=== PATIENT | male | born 1955 | race Caucasian/White ===

== ENCOUNTER 2017-08-02 10:57 | Inpatient (IN) ==
[2017-08-02] MEDS ORDERED: IOPAMIDOL 100 ML BOTTLE IV ONE (10:58)
[2017-08-02] MEDS ORDERED: ASPIRIN 81 MG TAB.CHEW CHEWED ONE (11:06)
[2017-08-02] MEDS ORDERED: ASPIRIN 81 MG TAB.CHEW ONE (11:14)
--- NOTE | 2017-08-02 11:21 | Emergency Department Note ---
SOB HPI - General Chief Complaint: Shortness of Breath/Dyspnea Stated Complaint: Generalized pain, coughing up blood Time Seen by Provider: 08/02/17 11:18 Mode of arrival: ambulatory Limitations: physical limitation, other (chonically ill, recent PE, recently dc' d off coumadin and managed on ASA. Coughing up blood for weeks, resolving. Hx of liver failure) - History of Present Illness MD Complaint: shortness of breath, cough, pain with inspiration Context: recent illness, other (recent PE and anticoagulation, occurred during wound care) Severity: severe, similar to previous episodes Consistency/Duration: constant Improves with: oxygen, rest, upright position Worsens with: lying flat, exertion, movement, coughing Known history of: COPD, PE Associated symptoms: Reports: chest pain, pain with inspiration, wheezing, sputum production, lower extremity pain, hemoptysis. Denies: fever, cough Treatment prior to arrival: none, aspirin - Related Data Home Medications Medication Instructions Recorded Confirmed Lisinopril [Zestril] 10 mg PO HS 09/28/16 08/02/17 mirtazapine 15 mg tablet 15 mg PO QHS 09/28/16 08/02/17 omeprazole 40 mg capsule,delayed 40 mg PO QDAY 05/18/17 08/02/17 release Furosemide [Lasix] 40 mg PO DAILY 08/02/17 08/02/17 nebulizer + accessories unit 08/02/17 Previous Rx's Medication Instructions Recorded labetalol 100 mg tablet 100 mg PO QDAY 90 Days #90 tab 06/13/17 fluticasone 220 mcg/actuation HFA 2 puff INHALATION BID #12 g 06/20/17 aerosol inhaler ipratropium 20 mcg-albuterol 100 1 inh INHALATION BID PRN #4 g 06/22/17 mcg/actuation mist for inhalation ipratropium-albuterol 0.5 mg-3 3 ml INHALATION Q8H PRN #270 ml 06/22/17 mg(2.5 mg base)/3 mL nebulization soln potassium chloride ER 20 mEq 20 meq PO QDAY 30 Days #30 tab 07/04/17 tablet,extended release Oxygen #1 each 07/15/17 Portable Oxygen #1 each 07/18/17 Allergies Allergy/AdvReac Type Severity Reaction Status Date / Time Iodinated Contrast- Oral and Allergy Intermediate Hives Verified 08/02/17 15:54 IV Dye Amoxicillin [AMOXICILLIN] Allergy Mild Itching Verified 08/02/17 15:54 Review of Systems Review of Systems: Patient's CT did not show evidence of pulmonary embolus at last visit. An area in the left lower lobe that could be a source of some bleeding seen on previous CT. Patient has a hx of portal vein thrombus. He has been on baby aspirin since last visit with Dr Norberto islas in this ER. He has continued to cough up blood and struggles to breathe Hx of Hepatitis C and cirrhosis, esophageal varices, heart disease with 9 stents He has a history of pulmonary fibrosis and COPD Please see previous records Constitutional: Reports: chills, weakness, night sweats Eyes: Denies: vision change ENT ED: Reports: congestion. Denies: throat pain Cardiovascular: Reports: chest pain, dyspnea on exertion, edema Respiratory: Reports: cough, dyspnea, wheezes, hemoptysis Gastrointestinal: Reports: abdominal pain, diarrhea Genitourinary: Denies: urgency, dysuria Musculoskeletal: Reports: back pain, arthralgia Integumentary: Denies: lesions Neurological: Reports: confusion. Denies: headache Endocrine: Reports: fatigue, heat or cold intolerance Hematological/Lymphatic: Reports: easy bleeding, easy bruising Allergic/Immunologic: Denies: facial swelling, urticaria, itchy eyes Past Medical History - Past Medical History Attestation: Yes: The following information was validated with the patient. Medical history: Reports: CHF, COPD, GI bleed, liver disease, myocardial infarction (stents), pulmonary embolus, other (DVTs, cellulitis) Surgical history ED: Reports: angioplasty/stent Family history: Reports: non-contributory - Social History smoking status: Current every day smoker Exposure to secondhand smoke: Yes Alcohol use: Reports: Heavy Drug use: Reports: unknown Physical Exam - General Limitations: physical limitation General appearance: in distress - Head Head exam: atraumatic, normocephalic - Eye Eye exam: Present: normal appearance, other (conjunctival pallor). Absent: conjunctival injection, nystagmus, periorbital swelling, periorbital tenderness - ENT ENT exam: mucous membranes dry - Neck Neck exam: Present: normal inspection, trachea midline. Absent: lymphadenopathy - Chest Chest inspection: Present: other (stridorous, gaspin like breathing) - Respiratory Respiratory exam: Present: wheezes, stridor, prolonged expiratory phase - Cardiovascular Cardiovascular exam: Present: tachycardia, irregular rhythm - Abdominal Exam Abdominal exam: Present: distention, tenderness (midline tenderness, no ascites noted), diminished bowel sounds, ascites (perhaps mild ascites, he says he has gained significant weight) Abdominal tenderness: Present: epigastrium - Rectal Exam Rectal exam: Present: deferred - Extremities Exam Extremities exam: Present: pedal edema (leg wounds bilaterally) - Back Exam Back exam: Absent: CVA tenderness (R), CVA tenderness (L) - Neurological Exam Neurological exam: Present: alert, oriented X3 - Psychiatric Psychiatric exam: Present: anxious - Skin Skin exam: Present: warm, dry Course Course Narrative: Patient continued to worsen throughout his stay, with increased shortness of breath and desaturations. Still awaiting new CTA results. Maintaining sats on bi -pap currently. Decision to admit made related to ABG and failure to maintain sats Vital Signs Temperature 98.0 F 08/02/17 11:04 Pulse Rate 108 H 08/02/17 11:04 Respiratory Rate 24 H 08/02/17 11:04 Blood Pressure 153/83 08/02/17 11:04 Pulse Oximetry (%) 95 08/02/17 11:04 Temperature 98.4 F 08/02/17 15:56 Pulse Rate 99 H 08/02/17 20:00 Respiratory Rate 19 08/02/17 20:00 Blood Pressure 139/82 08/02/17 20:00 Pulse Oximetry (%) 91 08/02/17 20:00 Shortness of Breath/Dyspnea - Lab Data Result diagrams: 08/02/17 11:48 08/02/17 11:48 Lab Results 08/02/17 08/02/17 08/02/17 Range/Units 11:46 11:47 11:48 WBC (4.5-11.0) K/mcL RBC (4.50-5.90) M/mcL Hgb (13.5-16.5) g/dL Hct (41.0-55.0) % MCV (80.0-100.0) fL MCH (26.0-34.0) pg MCHC (31.0-36.0) g/dL RDW (11.5-14.5) % Plt Count (140-440) K/mcL MPV (7.4-10.4) fL Gran % (38.0-78.0) % Lymph % (Auto) (15.5-49.0) % [place] % (Auto) (1.0-12.0) % Eos % (Auto) (0.0-7.0) % Baso % (Auto) (0.0-2.0) % Gran # (1.8-8.0) K/mcL Lymph # (Auto) (1.5-4.8) K/mcL [place] # (Auto) (0.1-0.9) K/mcL Eos # (Auto) (0.0-0.7) K/mcL Baso # (Auto) (0.0-0.3) K/mcL D-Dimer 1.26 H (0.00-0.40) ug/ml VBG Lactic Acid 1.6 (0.5-2.2) mmol/L Sodium 139 (133-145) mmol/L Potassium 3.5 (3.3-5.1) mmol/L Chloride 102 (96-108) mmol/L Carbon Dioxide 21 L (22-30) mmol/L Anion Gap 16.0 (8-16) BUN 18 (6-20) mg/dl Creatinine 1.2 (0.7-1.2) mg/dl GFR Calculation 66 Glucose 129 H (70-105) mg/dL Calcium 8.9 (8.6-10.4) mg/dl Magnesium (1.6-2.5) mg/dL Total Bilirubin 2.3 H (0.0-1.0) mg/dL AST 18 (0-37) U/l ALT 11 (0-40) U/l Alkaline Phosphatase 95 (39-117) U/L Ammonia (16-60) umol/L Total Creatine Kinase 47 (24-195) IU/L CK-MB (CK-2) 3.0 (0-4.9) ng/ml Myoglobin 45 (28-72) ng/ml Troponin T (0-0.03) ng/ml NT-Pro-B Natriuret Pep (0-125) pg/ml Total Protein 7.2 (5.9-8.4) gm/dL Albumin 4.2 (3.2-5.2) gm/dL Globulin 3.0 (2.2-3.7) gm/dL Albumin/Globulin Ratio 1.4 (1.0-2.3) 08/02/17 08/02/17 08/02/17 Range/Units 11:48 11:48 11:48 WBC 5.6 (4.5-11.0) K/mcL RBC 3.96 L (4.50-5.90) M/mcL Hgb 12.0 L (13.5-16.5) g/dL Hct 36.8 L (41.0-55.0) % MCV 92.8 (80.0-100.0) fL MCH 30.3 (26.0-34.0) pg MCHC 32.7 (31.0-36.0) g/dL RDW 17.7 H (11.5-14.5) % Plt Count 69 L (140-440) K/mcL MPV 9.3 (7.4-10.4) fL Gran % 77.6 (38.0-78.0) % Lymph % (Auto) 12.5 L (15.5-49.0) % [place] % (Auto) 7.2 (1.0-12.0) % Eos % (Auto) 2.4 (0.0-7.0) % Baso % (Auto) 0.3 (0.0-2.0) % Gran # 4.3 (1.8-8.0) K/mcL Lymph # (Auto) 0.7 L (1.5-4.8) K/mcL [place] # (Auto) 0.4 (0.1-0.9) K/mcL Eos # (Auto) 0.1 (0.0-0.7) K/mcL Baso # (Auto) 0 (0.0-0.3) K/mcL D-Dimer (0.00-0.40) ug/ml VBG Lactic Acid (0.5-2.2) mmol/L Sodium (133-145) mmol/L Potassium (3.3-5.1) mmol/L Chloride (96-108) mmol/L Carbon Dioxide (22-30) mmol/L Anion Gap (8-16) BUN (6-20) mg/dl Creatinine (0.7-1.2) mg/dl GFR Calculation Glucose (70-105) mg/dL Calcium (8.6-10.4) mg/dl Magnesium (1.6-2.5) mg/dL Total Bilirubin (0.0-1.0) mg/dL AST (0-37) U/l ALT (0-40) U/l Alkaline Phosphatase (39-117) U/L Ammonia (16-60) umol/L Total Creatine Kinase 46 (24-195) IU/L CK-MB (CK-2) (0-4.9) ng/ml Myoglobin (28-72) ng/ml Troponin T 0.03 (0-0.03) ng/ml NT-Pro-B Natriuret Pep 3840.0 H (0-125) pg/ml Total Protein (5.9-8.4) gm/dL Albumin (3.2-5.2) gm/dL Globulin (2.2-3.7) gm/dL Albumin/Globulin Ratio (1.0-2.3) 08/02/17 08/02/17 Range/Units 11:48 11:54 WBC (4.5-11.0) K/mcL RBC (4.50-5.90) M/mcL Hgb (13.5-16.5) g/dL Hct (41.0-55.0) % MCV (80.0-100.0) fL MCH (26.0-34.0) pg MCHC (31.0-36.0) g/dL RDW (11.5-14.5) % Plt Count (140-440) K/mcL MPV (7.4-10.4) fL Gran % (38.0-78.0) % Lymph % (Auto) (15.5-49.0) % [place] % (Auto) (1.0-12.0) % Eos % (Auto) (0.0-7.0) % Baso % (Auto) (0.0-2.0) % Gran # (1.8-8.0) K/mcL Lymph # (Auto) (1.5-4.8) K/mcL [place] # (Auto) (0.1-0.9) K/mcL Eos # (Auto) (0.0-0.7) K/mcL Baso # (Auto) (0.0-0.3) K/mcL D-Dimer (0.00-0.40) ug/ml VBG Lactic Acid (0.5-2.2) mmol/L Sodium (133-145) mmol/L Potassium (3.3-5.1) mmol/L Chloride (96-108) mmol/L Carbon Dioxide (22-30) mmol/L Anion Gap (8-16) BUN (6-20) mg/dl Creatinine (0.7-1.2) mg/dl GFR Calculation Glucose (70-105) mg/dL Calcium (8.6-10.4) mg/dl Magnesium 1.6 (1.6-2.5) mg/dL Total Bilirubin (0.0-1.0) mg/dL AST (0-37) U/l ALT (0-40) U/l Alkaline Phosphatase (39-117) U/L Ammonia 18 (16-60) umol/L Total Creatine Kinase (24-195) IU/L CK-MB (CK-2) (0-4.9) ng/ml Myoglobin (28-72) ng/ml Troponin T (0-0.03) ng/ml NT-Pro-B Natriuret Pep (0-125) pg/ml Total Protein (5.9-8.4) gm/dL Albumin (3.2-5.2) gm/dL Globulin (2.2-3.7) gm/dL Albumin/Globulin Ratio (1.0-2.3) - Radiology Data Radiology results reviewed: Yes I reviewed the patient's radiology results. Plain film without change, no evidence for pneumonia, cardiomegaly stable. Known pulmonary hypertension. Known pulmonary fibrosis. Would benefit from pulmonology consult. No evidence for acute cardiac event, no evidence for infectious event to this hour. Admit to ICU for stabilization and further evaluation. New ground glass infiltrates in seen in CT, as well as significant calcifications. patient is transferred to ICU with BIPAP to maintain oxygenation Disposition Pt seen by VOLUNTEER ASSISTANT/PA only: No (Dr Henry) Clinical Impression: Acute exacerbation of chronic obstructive airways disease, Hypoxia Disposition: Xfer As Inpt ([facility]) Condition: Undetermined
[2017-08-02 12:15] LABS: Basophils # (Auto) 0 K/mcL (0.0-0.3); Basophils % (Auto) 0.3 % (0.0-2.0); Eosinophils # (Auto) 0.1 K/mcL (0.0-0.7); Eosinophils % (Auto) 2.4 % (0.0-7.0); Granulocytes % (Auto) 77.6 % (38.0-78.0); Lymphocytes # (Auto) 0.7 K/mcL (1.5-4.8); Lymphocytes % (Auto) 12.5 % (15.5-49.0); Mean Cell Volume 92.8 fL (80.0-100.0); Mean Corpuscular HGB Conc 32.7 g/dL (31.0-36.0); Mean Corpuscular Hemoglobin 30.3 pg (26.0-34.0); Monocytes # (Auto) 0.4 K/mcL (0.1-0.9); Monocytes % (Auto) 7.2 % (1.0-12.0); Platelet Count 69 K/mcL (140-440); RBC 3.96 M/mcL (4.50-5.90); Red Cell Distribution Width 17.7 % (11.5-14.5)
--- NOTE | 2017-08-02 12:23 | XRay Report ---
CLINICAL INFORMATION: Chest pain COMPARISON: 07/28/2017 FINDINGS: The heart is moderately enlarged - slightly increased previous study. Mediastinum and pulmonary vessels are normal. There is minor scattered scarring or atelectasis in both lung bases. No focal infiltrates. Minor scarring blunts the right costophrenic angle IMPRESSION: Moderate cardiomegaly but no evidence CHF or other acute process Interpreted and Authenticated by: Gunnar Sethi 08/02/17
[2017-08-02 12:27] LABS: Myoglobin 45 ng/ml (28-72)
[2017-08-02 12:31] LABS: ALT/SGPT 11 U/l (0-40); Albumin 4.2 gm/dL (3.2-5.2); Albumin/Globulin Ratio 1.4 (1.0-2.3); Alkaline Phosphatase 95 U/L (39-117); Blood Urea Nitrogen 18 mg/dl (6-20); Creatine Kinase 47 IU/L (24-195)
[2017-08-02 12:33] LABS: Creatine Kinase 46 IU/L (24-195)
[2017-08-02] MEDS ORDERED: diphenhydrAMINE 50 MG/ML VIAL IV ONE (12:57)
[2017-08-02] MEDS ORDERED: FUROSEMIDE 40 MG/4 ML VIAL IV ONE (12:58)
[2017-08-02] MEDS ORDERED: DEXAMETHASONE 10 MG/ML VIAL IV ONE (13:06)
[2017-08-02] MEDS: POTASSIUM CHLORIDE 20 MEQ TABLET PO ONE ×2 (13:57)
[2017-08-02] MEDS ORDERED: POTASSIUM CHLORIDE 10 MEQ TABLET PO ONE (14:00)
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
[2017-08-02] MEDS ORDERED: NALOXONE HCL 0.4 MG/ML VIAL IV PRN (15:52)
[2017-08-02] MEDS ORDERED: DEXTROSE 50% 50 ML VIAL IV PRN (15:52)
[2017-08-02] MEDS ORDERED: ALBUTEROL SULFATE 2.5 MG/3 ML NEBULIZER NEB PRN (15:52)
[2017-08-02] MEDS ORDERED: LORazepam 2 MG/ML VIAL IV PRN (15:52)
[2017-08-02] MEDS ORDERED: DOCUSATE SODIUM 100 MG CAPSULE PO PRN (15:52)
[2017-08-02] MEDS ORDERED: MAGNESIUM HYDROXIDE 30 ML ORAL.SUSP PO PRN (15:52)
[2017-08-02] MEDS ORDERED: DEXTROSE 31 GM ORAL.SUSP PO PRN (15:52)
[2017-08-02] MEDS ORDERED: ONDANSETRON 4 MG/2 ML VIAL IV PRN (15:52)
[2017-08-02] MEDS ORDERED: ACETAMINOPHEN 325 MG TABLET PO PRN (15:52)
--- NOTE | 2017-08-02 16:07 | Cat Scan Report ---
CLINICAL INFORMATION: Shortness of breath. History of pulmonary embolus COMPARISON: Prior chest CT from 02/12/2008, 07/15/2017 and 07/28/2017 TECHNIQUE: Axial images obtained through the chest. 80 cc of Isovue 360 contrast administration was administered cutaneously, and scanning was performed during pulmonary arterial phase. Axial, sagittal coronal reformatted images were obtained. Unfortunately, the pulmonary arteries were not opacified on the for exam. The patient is turned and 80 cc of Isovue 360 was reinjected and, using bolus timing, 2.5 mm helical slices were obtained from lung apices through the bases. Sagittal, coronal axial reformatted images were processed and reviewed at multiple windows and levels. 8 mm MIP images also obtained FINDINGS: The pulmonary arteries are well opacified - no evidence of recurrent embolus. The central pulmonary arteries are enlarged: The main pulmonary diameter of 4 cm. This is however unchanged from the [address] It is suggestive of chronic pulmonary hypertension. The thoracic aorta is normal in contour and caliber. There is no adenopathy in the mediastinal, hilar or axillary region. The heart is mildly enlarged, and there is heavy fibrofatty and calcific atherosclerotic plaque throughout the coronary arteries. Esophagus is grossly normal. Pulmonary parenchymal windows show elevated lung volumes and slight dilatation/wall thickening the bronchi suggesting chronic bronchitis. A moderate sized patchy alveolar infiltrate has developed in the superior segment of the left lower lobe . There are pleural parenchymal fibrotic changes in the peripheral right lower lobe which were also seen on the remote study. Smaller bandlike regions of interstitial disease in the extreme anterior upper lobes and also the perimediastinal left upper lobe are present. These are unchanged from the most recent chest CT dating back to three weeks ago; however , they were not seen on the 2008 CT. Are likely regions of interstitial fibrosis. Bones and soft tissues the chest wall are unremarkable. Images through the abdomen again show cirrhotic changes with varices in the perigastric perisplenic and peripancreatic region. No ascites. IMPRESSION: 1. No evidence of pulmonary embolus 2. New small patchy groundglass infiltrate in the superior segment of the left lower lobe 3. Pleural parenchymal fibrotic changes in the peripheral right lower lobe. Small regions of interstitial disease in the anterior segments of both upper lobes and the perimediastinal left upper lobe are unchanged from the most recent chest CTs dating back to three weeks. While it may represent interstitial fibrosis; it was not seen on the remote 2007 CT, therefore it could still represent active inflammation or edema. 4. Heavy fibrofatty calcific plaque in the coronary arteries. Suspect either occlusion and/or hemodynamically significant stenosis in the coronary arteries. Consider cardiology referral for stress testing 5. Cirrhotic changes with evidence for portal hypertension including varices and small amount of ascites in the perihepatic space Interpreted and Authenticated by: Gunnar Sethi 08/02/17
[2017-08-02] MEDS: INSULIN LISPRO 1 UNIT/0.01 ML UNIT SQ SCH ×2 (17:45→20:28)
[2017-08-02] MEDS: IPRATROPIUM/ALBUTEROL 3 ML AMPUL.NEB NEB SCH (19:19)
[2017-08-02] MEDS: BUDESONIDE 0.5 MG/2 ML AMPUL.NEB NEB SCH (19:19)
[2017-08-02] MEDS: FUROSEMIDE 40 MG/4 ML VIAL IV SCH (20:28)
[2017-08-02] MEDS ORDERED: LISINOPRIL 10 MG TABLET PO SCH (21:00)
[2017-08-02] MEDS ORDERED: MIRTAZAPINE 15 MG TABLET PO SCH (21:00)
[2017-08-02] MEDS ORDERED: 0.9 % SODIUM CHLORIDE 10 ML SYRINGE IV SCH (22:00)
[2017-08-02] MEDS: 0.9 % SODIUM CHLORIDE 10 ML SYRINGE IV SCH (22:06)
--- NOTE | 2017-08-03 | Emergency Department Note ---
ED Note Addendum Note Addendum: I have examined the patient and agree with admision for respiratory failure. We eventually put him on c-pap with improvement.. ct shows infiltrate
[2017-08-03] MEDS: IPRATROPIUM/ALBUTEROL 3 ML AMPUL.NEB NEB SCH ×3 (01:32→13:25)
[2017-08-03] MEDS: 0.9 % SODIUM CHLORIDE 10 ML SYRINGE IV SCH ×5 (05:32→15:48)
[2017-08-03 06:34] LABS: Basophils # (Auto) 0 K/mcL (0.0-0.3); Basophils % (Auto) 0.2 % (0.0-2.0); Eosinophils # (Auto) 0 K/mcL (0.0-0.7); Eosinophils % (Auto) 0.2 % (0.0-7.0); Granulocytes % (Auto) 86.2 % (38.0-78.0); Lymphocytes # (Auto) 0.4 K/mcL (1.5-4.8); Lymphocytes % (Auto) 8.9 % (15.5-49.0); Mean Cell Volume 93.7 fL (80.0-100.0); Monocytes # (Auto) 0.2 K/mcL (0.1-0.9); Monocytes % (Auto) 4.5 % (1.0-12.0); Platelet Count 69 K/mcL (140-440); RBC 3.94 M/mcL (4.50-5.90); Red Cell Distribution Width 17.3 % (11.5-14.5)
[2017-08-03 06:53] LABS: ALT/SGPT 11 U/l (0-40); Albumin 3.8 gm/dL (3.2-5.2); Albumin/Globulin Ratio 1.4 (1.0-2.3); Alkaline Phosphatase 88 U/L (39-117); Bilirubin,Direct 0.4 mg/dL (0.0-0.3); Blood Urea Nitrogen 24 mg/dl (6-20); Gamma Glutamyl Transpeptidase 24 U/L (8-61); Magnesium 1.8 mg/dL (1.6-2.5); Uric Acid 10.3 mg/dL (2.5-8.0)
[2017-08-03] MEDS: BUDESONIDE 0.5 MG/2 ML AMPUL.NEB NEB SCH (06:59)
[2017-08-03] MEDS: INSULIN LISPRO 1 UNIT/0.01 ML UNIT SQ SCH ×2 (07:29→13:20)
[2017-08-03] MEDS ORDERED: OMEPRAZOLE 20 MG CAPSULE PO SCH (07:30)
[2017-08-03] MEDS ORDERED: POTASSIUM CHLORIDE 20 MEQ TABLET PO SCH (08:00)
[2017-08-03] MEDS: FUROSEMIDE 40 MG/4 ML VIAL IV SCH (08:18)
[2017-08-03] MEDS ORDERED: LABETALOL 100 MG TABLET PO SCH (09:00)
--- NOTE | 2017-08-03 11:00 | Internal Med Progress Note ---
Medical - PN: Subj Patient information: Note initiated : 08/03/17 at 11:00 am Service Date, if different from initiated Date: [] Patient: Shane Marroquin 61 y/o M admitted on 08/02/17 for Generalized pain, coughing up blood. Chief Complaint: [] - Constitutional Vitals: Vital Signs Temp Pulse Resp BP Pulse Ox 97 F 96 H 15 133/93 91 08/03/17 07:29 08/03/17 07:33 08/03/17 10:00 08/03/17 10:00 08/03/17 10:00 Period Temp Pulse Resp BP Sys/Carlson Pulse Ox Last 24 Hr 97 F-98.4 F 93-113 13-32 91-162/64-112 83-98 Intake and Output 08/02/17 08/03/17 08/03/17 21:59 05:59 13:59 Intake Total 240 / 240 540 / 540 Output Total 800 / 800 300 / 300 400 / 400 Balance -560 / -560 -300 / -300 140 / 140 Weight 189 lb 4.8 oz Intake & Output: Intake & Output 08/02/17 08/03/17 08/03/17 21:59 05:59 13:59 Intake Total 240 / 240 540 / 540 Output Total 800 / 800 300 / 300 400 / 400 Balance -560 / -560 -300 / -300 140 / 140 Weight 189 lb 4.8 oz Intake: Oral 240 / 240 240 / 240 GI Tube Flush 300 / 300 Output: Urine Catheter Amount 600 / 600 Void Amount 200 / 200 300 / 300 400 / 400 Other: Meal Dinner Breakfast Percent of Meal Consumed 100% 100% Feeding Ability Assist with Tray Set Up # Voids 1 Medical - PN: Obj Da - Labs CBC & Chem 7: 08/03/17 03:58 08/03/17 03:58 Labs: Abnormal Lab Results 08/03/17 08/03/17 08/02/17 03:58 03:58 11:48 WBC 4.4 L RBC 3.94 L Hgb 11.8 L Hct 36.9 L RDW 17.3 H Plt Count 69 L Gran % 86.2 H Lymph % (Auto) 8.9 L Lymph # (Auto) 0.4 L D-Dimer Carbon Dioxide BUN 24 H Creatinine 1.6 H Glucose 197 H Uric Acid 10.3 H Phosphorus 2.6 L Total Bilirubin 1.2 H Direct Bilirubin 0.4 H NT-Pro-B Natriuret Pep 3840.0 H 08/02/17 08/02/17 08/02/17 11:48 11:48 11:47 WBC RBC 3.96 L Hgb 12.0 L Hct 36.8 L RDW 17.7 H Plt Count 69 L Gran % Lymph % (Auto) 12.5 L Lymph # (Auto) 0.7 L D-Dimer 1.26 H Carbon Dioxide 21 L BUN Creatinine Glucose 129 H Uric Acid Phosphorus Total Bilirubin 2.3 H Direct Bilirubin NT-Pro-B Natriuret Pep Meds: Medications Acetaminophen (Tylenol) 650 mg PO Q4-6HP PRN PRN Reason: PAIN/FEVER > 101 Last Admin: 08/02/17 17:47 Dose: 650 mg Albuterol Sulfate (Ventolin) 2.5 mg NEB Q4HRT PRN PRN Reason: Shortness Of Breath Or Wheezing Albuterol/Ipratropium (Duoneb) 3 ml NEB Q6HRT [facility] Last Admin: 08/03/17 06:58 Dose: 3 ml Budesonide (Pulmicort) 0.5 mg NEB Q12 [facility] Last Admin: 08/03/17 06:59 Dose: 0.5 mg Dextrose (Dextrose 50%) 0 ml IV UD PRN PRN Reason: Hypoglycemia Diagnostic Test (Pha) (Accu-Chek) 1 each FS [facility] Last Admin: 08/03/17 07:29 Dose: 1 each Docusate Sodium (Colace) 100 mg PO BID PRN PRN Reason: Constipation Furosemide (Lasix) 40 mg IV BID [facility] Last Admin: 08/03/17 08:18 Dose: 40 mg Glucose (Insta-Glucose) 15 gm PO PRN PRN PRN Reason: Hypoglycemia Insulin Human Lispro (Humalog) 0 unit SQ [facility] PRN Reason: Protocol Last Admin: 08/03/17 07:29 Dose: 1 unit Labetalol HCl (Trandate) 100 mg PO QDAY [facility] Last Admin: 08/03/17 08:19 Dose: 100 mg Lisinopril (Zestril) 10 mg PO HS [facility] Last Admin: 08/02/17 20:29 Dose: 10 mg Lorazepam (Ativan) 1 mg IV Q2HP PRN PRN Reason: ANXIETY/SEDATION Magnesium Hydroxide (Milk Of Magnesia) 30 ml PO DAILYP PRN PRN Reason: Constipation Mirtazapine (Remeron) 15 mg PO QHS [facility] Last Admin: 08/02/17 20:29 Dose: 15 mg Morphine Sulfate (Morphine) 4 mg IV Q2HP PRN PRN Reason: Pain Last Admin: 08/03/17 08:30 Dose: 4 mg Naloxone HCl (Narcan) 0.1 mg IV Q2MIN PRN PRN Reason: Opiate Reversal Omeprazole (Prilosec) 40 mg PO ACB [facility] Last Admin: 08/03/17 07:30 Dose: 40 mg Ondansetron HCl (Zofran) 4 mg IV Q4-6HP PRN PRN Reason: Nausea And Vomiting Potassium Chloride (Kdur) 20 meq PO QAMCC [facility] Last Admin: 08/03/17 08:18 Dose: 20 meq Sodium Chloride (Saline Flush) 10 ml IV Q8 [facility] Last Admin: 08/03/17 08:20 Dose: 10 ml Medical - PN: A/P - Time Spent With Patient Total time spent is greater than 50% in coordination of care (as documented) at patient's floor/unit and/or counseling patient: (1) Acute and chronic respiratory failure Status: Acute Current Visit: Yes (2) Congestive heart failure Status: Acute Current Visit: Yes (3) Pulmonary hypertension Status: Chronic Current Visit: No (4) Liver failure Status: Chronic Current Visit: No (5) Tobacco abuse Problem details: Smoking Status: Chronic Current Visit: No (6) Esophageal varices Status: Chronic Current Visit: No (7) Cirrhosis of liver Status: Chronic Current Visit: No (8) COPD (chronic obstructive pulmonary disease) Status: Chronic Current Visit: No (9) CAD (coronary artery disease) Problem details: Pt. denies a history of [place] Status: Chronic Current Visit: No Medical - PN: Qual - Stroke Symptom Onset Unknown: No - VTE Deep Vein Thrombosis/Pulmonary Embolism Present on Admission: No
[2017-08-03] MEDS ORDERED: NITROGLYCERIN 0.4 MG TAB.SUBL SL ONE (12:24)
[2017-08-03] MEDS ORDERED: NITROGLYCERIN 0.4 MG TAB.SUBL SL PRN (12:30)
[2017-08-03] MEDS ORDERED: NITROGLYCERIN 1 GM OINT.TOP TD ONE (12:47)
[2017-08-03] MEDS ORDERED: KETOROLAC 15 MG/ML VIAL IV ONE (12:47)
--- NOTE | 2017-08-03 13:11 | XRay Report ---
CLINICAL INFORMATION: Left-sided chest pain COMPARISON: 08/02/2017 FINDINGS: Moderate cardiomegaly is unchanged. Mediastinum and pulmonary vessels are normal. Minor bibasilar atelectasis is noted, but no definite infiltrates. Tiny right pleural effusion appreciated IMPRESSION: Moderate stable cardiomegaly - no evidence of acute CHF. Minor bibasilar atelectasis Interpreted and Authenticated by: Gunnar Sethi 08/03/17
--- NOTE | 2017-08-03 16:11 | Discharge Summary ---
Medical - DS: Prov Patient information: Note initiated : 08/03/17 at 4:09 pm Patient: Shane Marroquin 61 y/o M admitted on 08/02/17 for Generalized Pain, Coughing up Blood/Resp Failure. Date of admission: 08/02/17 15:19 Discharge date: 08/03/17 Primary care physician: MAMADOU Crow, phone number [phone] Admitting clinician: Gail Prince Attending physician on discharge: Gail Prince Medical - DS: Meds - Discharge Medications Active and Home Medications: Discharge medications: Tylenol 650 mg every 4 hours as needed Albuterol nebulizers every 4 hours as needed Budesonide nebulizers 0.5 mg every 12 hours Rocephin 1 g IV every 24 hours Clindamycin 600 mg IV every 8 hours Colace 100 mg p.o. twice daily as needed Lasix 40 mg IV twice daily Humalog sliding scale low-dose Duo nebs every 6 hours Labetalol 100 mg daily Lisinopril 10 mg nightly Ativan 1 mg IV every 2 hours as needed Magnesium hydroxide 30 mL daily as needed Mirtazapine 15 mg nightly next line morphine 4 mg IV every 2 hours as needed Narcan 0.1 mg IV every 2 minutes as needed Sublingual nitroglycerin 0.4 mg every 5 minutes as needed Omeprazole 40 mg p.o. daily next line Zofran 4 mg IV every 4-6 hours as needed Potassium chloride 20 mEq p.o. daily Oxygen, 65% FiO2, on BiPAP Previous home Medications: (Patient was on Coumadin until 1 week ago. This was discontinued after he presented to the emergency room with gross hemoptysis. Lisinopril [Zestril] 10 mg PO HS 09/28/16 [History Confirmed 08/02/17 Last Taken 09/30/16 08:00] mirtazapine 15 mg tablet 15 mg PO QHS 09/28/16 [History Confirmed 08/02/17 Last Taken Unknown] omeprazole 40 mg capsule,delayed release 40 mg PO QDAY 05/18/17 [History Confirmed 08/02/17 Last Taken Unknown] labetalol 100 mg tablet 100 mg PO QDAY 90 Days #90 tab 06/13/17 [Rx Confirmed Last Taken Unknown] fluticasone 220 mcg/actuation HFA aerosol inhaler 2 puff INHALATION BID #12 g [Rx Confirmed 08/02/17 Last Taken Unknown] ipratropium 20 mcg-albuterol 100 mcg/actuation mist for inhalation 1 inh INHALATION BID PRN #4 g 06/22/17 [Rx Confirmed 08/02/17 Last Taken Unknown] ipratropium-albuterol 0.5 mg-3 mg(2.5 mg base)/3 mL nebulization soln 3 ml INHALATION Q8H PRN #270 ml 06/22/17 [Rx Confirmed 08/02/17 Last Taken Unknown] potassium chloride ER 20 mEq tablet,extended release 20 meq PO QDAY 30 Days #30 tab 07/04/17 [Rx Confirmed 08/02/17 Last Taken Unknown] Oxygen #1 each 07/15/17 [Rx Confirmed 07/22/17 Last Taken Unknown] Portable Oxygen #1 each 07/18/17 [Rx Confirmed 07/22/17 Last Taken Unknown] Furosemide [Lasix] 40 mg PO DAILY 08/02/17 [History Confirmed 08/02/17 Last Taken Unknown] nebulizer + accessories unit 08/02/17 [History Last Taken Unknown] Medical - DS: Hosp Hospital course: Mr. Marroquin is a 61 year old M August 02, 2017: History of present illness: Mr. Marroquin is a 61 year old man with many chronic illnesses, including liver cirrhosis, coronary disease, COPD, diabetes, who was diagnosed with a pulmonary embolism about 1 month ago. This was apparently diagnosed in our emergency room , and patient was started on Coumadin. About 1 week ago he presented with hemoptysis. He was told to stop his Coumadin, and he was placed on aspirin. The patient notes that over the last 4 or 5 days he has noted increasing edema and shortness of breath, orthopnea, as well as chills. He has had some headaches and dizziness as well. He thinks he may have had some sinus symptoms. He has also been having some tightness of his mid and left-sided chest that he thinks is been going on for the last 4 or 5 days. The shortness of breath may have started getting worse over the more than a week ago possibly 2 weeks. He has had increasing edema over the last week, but says he recently moved and did not have his scale, so he has not been weighing himself. He is also been having some mild abdominal discomfort and nausea. He says he was having loose stools for the last 4 or 5 days, but that seemed to stop a day or so ago. He presented to the wound care clinic today to check on some lower extremity sores, but they sent him over to the emergency room for his dyspnea. In the emergency room workup showed a BNP of 38,000. He was noted to have periods of apnea on the monitor while in the ER, and would drop his O2 saturations down into the 70s. He is now admitted for workup and treatment of his intermittent hypoxia. He is on home oxygen, 3 L at night, in addition to duo nebs 3-5 times a day, and Flovent. His last left ventricular ejection fraction read at 40%. On arrival to the ICU, he is still rather dyspneic. We tried to leave his BiPAP off so that we could talk with him, but his sats quickly dropped into the 70s even with a high flow mask. Once the BiPAP is back on, with FiO2 40%, his sats jumped back up to the mid 90s almost immediately. He otherwise denies fever, new eye or ear symptoms. He has had a little bit of a sore throat and a slight cough. He denies palpitations. He has had some nausea, but no vomiting. He has had some diarrhea. He denies dysuria. Respiratory therapy notes that his breathing pattern is suggestive of Koby- Roper. She thinks perhaps this has something to do with Benadryl and other medications received in the emergency room. August 03: Hospital course: The patient was admitted to ICU last night. Because of his edema and elevated BNP, he was treated with IV Lasix. He did diurese about 850 mL overnight, and breathing seemed to improve this morning. He was weaned off the BiPAP and placed on oxygen by nasal cannula, and seemed to be tolerating that well as of this morning. He was complaining of some mild abdominal discomfort today, and there is some concern for spontaneous bacterial peritonitis, given his chronic liver disease. The patient also noted some discomfort in the left lower quadrant/left groin area today. He is worried that he might have a recurrent clot there, as he believes he had a blood clot there before. Around noon today, he began to complain of left-sided chest discomfort. He describes this as sharp but constant, worse with deep breathing and cough. His O2 saturations declined around the same time, and he was placed back on BiPAP to keep his O2 saturations above 90%, with 65% FiO2. EKG was done, and showed inverted T waves in leads V2 through V6, which was new compared to his admission EKG. Patient was given sublingual nitroglycerin, and then topical Nitropaste. These only gave him moderate relief. He was then given 1 dose of IV Toradol for the pleuritic component of pain, but that did not seem very helpful either. Recall that the patient was diagnosed with small pulmonary emboli in the right lateral basilar segmental lower lobe pulmonary artery, as well as medial and posterior basilar segmental arteries of both lower lobes, on July 15, 2017 , in our emergency room. He was started on Lovenox and Coumadin at that time. On July 28, he presented to our emergency room complaining of gross hemoptysis. Because of his known liver disease and increased risk for bleeding , repeat CT angiogram was done to assess the status of his PE. CT scan did not show evidence of PE. It did show subtle groundglass opacity in the superior segment of the left lower lobe thought to be consistent with either inflammation or alveolar hemorrhage, versus pneumonia. Also mild idiopathic pulmonary fibrosis. Dr. Medina, of interventional radiology, was contacted, as he had previously treated the patient for a portal vein thrombosis. He reviewed the CT scan, and did not see a PE. He suggested changing the patient from Coumadin to baby aspirin for 10-14 days. The patient was advised to return to the ER if he had further signs of hemorrhage. At this time, the patient is requiring BiPAP to keep his O2 saturations above 90 %. He still appears uncomfortable. He says the chest pain is never completely resolved. He had a follow-up EKG at 2:30 PM, which shows normal sinus rhythm at a rate of 83. T-wave inversions anterolaterally persist, and may even be slightly worse than at noon. Dr. Herrmann at [facility] in [place] was contacted. Reviewed the case with him. He has agreed to accept the patient in transfer, to help further diagnose and treat the cause of the patient's hypoxic respiratory failure, as well as to have access to cardiology for his ongoing chest pain and EKG changes. Patient does have known history of coronary disease, and is also at increased risk of bleeding due to his liver failure and varices. On exam, patient has remained afebrile since admission. Current heart rate is 84, respiratory rate 20, blood pressure 111/75. He is on BiPAP at 55% FiO2, with O2 saturations of 93%. Neck is supple without obvious JVD. Cardiac exam shows regular rate and rhythm with normal S1 and S2. Lungs have generally decreased breath sounds, without definite crackles or wheezes. There is mild accessory muscle use. Abdomen: Is soft, without guarding or rebound. He does have some tenderness in the left lower quadrant and suprapubic areas. I cannot appreciate a hernia in this area. He has a good left inguinal pulse. Extremities: Continue to show 2+ pitting edema of the feet and lower legs. Neurologic: The patient is awake and alert, but seems a bit forgetful at times. Motor exam is grossly nonfocal. Assessment and plan: #1. Cardiopulmonary. Patient resents with apparent acute respiratory failure superimposed on chronic respiratory failure. He has long-standing COPD, recent diagnosis of pulmonary embolism, reports of pulmonary hypertension, and elevated BNP consistent with possible CHF. Yesterday he also had an abnormal respiratory pattern, that seemed consistent with Koby-Roper breathing. He did diurese a fair amount overnight, and seemed to improve this morning, but this afternoon is having chest pain associated with declining respiratory status. I did review his case with Dr. Coleman from interventional radiology. He reviewed the CT scan from yesterday for me, and confirms there is no sign of recurrent PE. At this point, the patient has been having chest discomfort, and is having dynamic EKG changes, so I am more concerned about a cardiac etiology of his chest pain, and perhaps for his respiratory decline as well. I did review his CT findings also with Dr. Herrmann, of internal medicine at [facility], today. That does show an infiltrate that could be consistent with pneumonia as well. -Patient is currently being supported with BiPAP to maintain O2 saturations. -He has received sublingual nitroglycerin as well as topical Nitropaste and morphine, in addition to Toradol, for his pain. -At this time, the patient would be better served at a larger institution, where he could have access to both cardiology and pulmonology specialties. Dr. Lofton has graciously agreed to accept him in transfer at this time. -Patient previously signed a limited code order, but now says he would accept ventilation if necessary. -Echocardiogram was done, with results pending. We were verbally told that his ejection fraction is 25%. -Recheck EKG and troponins in 6 hours. COPD. -Duo nebs plus as needed albuterol, budesonide nebs, oxygen as needed. Pulmonary embolism, diagnosed about 1 month ago. Patient was taken off of Coumadin after 1 month, for gross hemoptysis. He does have a fairly high risk of bleeding, given his underlying liver disease. 2. CODE STATUS: Previously requested limited code, but now states he would accept full code. 3. DVT prophylaxis: SCDs. Patient is high risk for anticoagulation, given recent bleeding, esophageal varices, thrombocytopenia. 4. GI. History of liver cirrhosis, alcohol abuse, chronic hepatitis C, esophageal varices.. Patient is at high risk for GI bleed. 5. Endocrine History of type 2 diabetes. Accu-Cheks and sliding scale insulin. Next 6. Tobacco abuse. Ongoing, just 1-2 cigarettes per day. Really the patient should not be smoking at all. NicoDerm patch as needed. 7. History of alcohol abuse. It is still drinking an occasional beer, and should be abstaining from all alcohol. 8. Infectious disease. -CT scan suggests possible infiltrate. Patient does not really give much history consistent with pneumonia, but will be started on empiric Rocephin plus clindamycin at this time. -I had started him on oral ciprofloxacin earlier today, over concerns of possible SBP, but that will be discontinued at this time as well. -Urine and blood cultures are pending. I do not believe we were able to get a sputum sample from him. Discharge diagnosis: Acute respiratory failure. Chest pain with EKG changes. Secondary discharge diagnosis: Chronic liver failure. CHF. Possible pneumonia Recent pulmonary embolism - Time Spent with Patient Total time spent providing and/or coordinating discharge services: Greater than 30 minutes Medical - DS: Exam - Constitutional Vitals: Vital Signs Temp Pulse Pulse Resp BP BP Pulse Ox 08/03/17 15:00 83 20 111/75 93 08/03/17 14:30 82 19 106/66 93 08/03/17 14:16 81 15 102/64 92 08/03/17 14:00 83 19 101/64 93 08/03/17 13:45 83 19 108/63 92 08/03/17 13:35 86 19 111/68 88 L 08/03/17 13:26 86 24 H 93 08/03/17 12:51 98 H 23 H 129/72 97 08/03/17 12:46 95 H 23 H 111/75 98 08/03/17 12:45 95 H 14 112/72 96 08/03/17 12:41 93 H 28 H 136/108 84 L 08/03/17 12:19 94 H 21 126/96 91 08/03/17 12:18 95 H 22 127/104 88 L 08/03/17 12:01 89 20 122/68 92 08/03/17 11:13 97.7 F 88 19 108/57 91 08/03/17 10:00 15 133/93 91 08/03/17 09:00 22 150/96 96 08/03/17 08:00 21 137/94 91 08/03/17 07:33 96 H 94 08/03/17 07:30 91 08/03/17 07:29 97 F 08/03/17 07:00 97.9 F 22 108/68 92 08/03/17 06:55 99 H 20 08/03/17 05:56 113 H 18 113/68 97 08/03/17 05:00 93 H 16 115/64 96 08/03/17 04:00 97 H 18 122/77 97 08/03/17 03:00 97 H 16 146/85 94 08/03/17 02:00 97 H 20 128/71 93 08/03/17 01:00 101 H 25 H 133/77 92 08/03/17 00:00 96 H 21 129/76 95 08/02/17 23:00 93 H 13 147/90 92 08/02/17 22:00 98 H 17 123/81 93 08/02/17 21:00 100 H 19 135/78 91 08/02/17 20:54 102 H 16 94 08/02/17 20:00 99 H 19 139/82 91 08/02/17 19:31 103 H 19 08/02/17 19:19 92 08/02/17 19:00 102 H 24 H 124/112 90 08/02/17 18:15 109 H 20 139/92 90 10/10/17 17:35 105 H 20 125/74 97 Intake and Output 08/03/17 08/03/17 08/03/17 05:59 13:59 21:59 Intake Total 900 / 900 Output Total 300 / 300 600 / 600 200 / 200 Balance -300 / -300 300 / 300 -200 / -200 Intake: Oral 240 / 240 GI Tube Flush 660 / 660 Output: Void Amount 300 / 300 600 / 600 200 / 200 Other: Meal Breakfast Percent of Meal Consumed 100% Feeding Ability Assist with Tray Set Up # Voids 1 Weight 189 lb 4.8 oz Patient Weight 08/04/17 05:59 Weight 189 lb 4.8 oz Medical - DS: Data Labs on day of discharge: Labs from last 24 hours 08/03/17 08/03/17 08/03/17 12:57 03:58 03:58 WBC 4.4 L RBC 3.94 L Hgb 11.8 L Hct 36.9 L MCV 93.7 MCH 30.0 MCHC 32.0 RDW 17.3 H Plt Count 69 L MPV 9.0 Gran % 86.2 H Lymph % (Auto) 8.[address] [place] % (Auto) 4.5 Eos % (Auto) 0.2 Baso % (Auto) 0.2 Gran # 3.8 Lymph # (Auto) 0.[address] [place] # (Auto) 0.2 Eos # (Auto) 0 Baso # (Auto) 0 Sodium 139 Potassium 3.7 Chloride 100 Carbon Dioxide 23 Anion Gap 16.0 BUN 24 H Creatinine 1.6 H GFR Calculation 46 Glucose 197 H Uric Acid 10.3 H Calcium 8.9 Phosphorus 2.6 L Magnesium 1.8 Total Bilirubin 1.2 H Direct Bilirubin 0.4 H GGT 24 AST 15 ALT 11 Alkaline Phosphatase 88 Lactate Dehydrogenase 248 Troponin T 0.02 Total Protein 6.6 Albumin 3.8 Globulin 2.8 Albumin/Globulin Ratio 1.4 Triglycerides 41 08/02/17 17:57 WBC RBC Hgb Hct MCV MCH MCHC RDW Plt Count MPV Gran % Lymph % (Auto) [place] % (Auto) Eos % (Auto) Baso % (Auto) Gran # Lymph # (Auto) [place] # (Auto) Eos # (Auto) Baso # (Auto) Sodium Potassium Chloride Carbon Dioxide Anion Gap BUN Creatinine GFR Calculation Glucose Uric Acid Calcium Phosphorus Magnesium Total Bilirubin Direct Bilirubin GGT AST ALT Alkaline Phosphatase Lactate Dehydrogenase Troponin T 0.02 Total Protein Albumin Globulin Albumin/Globulin Ratio Triglycerides Preliminary micro results at discharge 08/02/17 11:25 Blood Culture - Preliminary Blood 08/02/17 11:38 Blood Culture - Preliminary Blood August 03: Echocardiogram: Mild concentric LVH, LV systolic function severely reduced, ejection fraction 25%. Severe global hypokinesis. Grade 2 diastolic dysfunction. Biatrial enlargement. Doppler findings suggestive of severe pulmonary hypertension. Aortic valve is moderately to severely sclerotic. Moderate to severe aortic insufficiency. Mildly dilated a sending aorta. Sputum: Moderate to many polys. Moderate gram-positive cocci in pairs, rare gram-positive cocci in clusters. Few to moderate gram-negative bacilli . Troponin: 0.02 EKG at 2:31 PM: Shows sinus rhythm at a rate of 83, again with inverted T waves in V leads V2 through V6, new since admission, but similar to the EKG done at noon. Nonspecific intraventricular conduction delay. EKG at 12:09 PM: Shows sinus rhythm at a rate of 94, with inverted T waves noted in leads V2 through V6, new when compared to admission EKG. Nasal MRSA screen is negative. Blood cultures are negative so far. Chest x-ray: Shows moderate stable cardiomegaly without CHF. Minor bibasilar atelectasis. ABG: On BiPAP with settings 10/5, FiO2 65%: PH 7.49, PCO2 28, PO2 60, bicarb 21 , O2 saturation 93% August 02: CBC: White blood cell count 5.6, hemoglobin 12, hematocrit 36.8, RDW 17, platelet count 69,000 Chemistry panel: Sodium 139, potassium 3.5, chloride 102, CO2 21, anion gap 16, glucose 129, BUN 18, creatinine 1.2 Total bilirubin elevated at 2.3 D-dimer is elevated at 1.26 Troponin is normal at 0.03 ProBNP is elevated at 3840 July 22: Right leg wound culture is growing staph aureus, which is resistant to erythromycin, but otherwise pansensitive. EKG: Shows probable sinus tachycardia at a rate of 103 low voltage is noted. Nonspecific ST T changes are noted. Chest x-ray: Shows moderate cardiomegaly, but no obvious CHF. Minor scarring versus atelectasis in both bases. ABG: On 15 L nonrebreather mask: PH 7.49, CO2 29, PO2 82, bicarb 22, 97% saturated. Chest CT: No PE. New small groundglass infiltrate in the superior segment of the left lower lobe. Right lower lobe fibrotic changes. Some interstitial disease. Heavy plaque seen in coronary arteries. Liver cirrhosis with portal hypertension. Small amount of ascites in the perihepatic space. Enlarged central pulmonary arteries, suggestive of pulmonary hypertension. Medical - DS: A/P - Patient/Caregiver Discharge Instructions Activity: as instructed Diet: Low Sodium (2gm) - Problem Maintenance (1) Acute and chronic respiratory failure Status: Acute (2) Congestive heart failure Status: Acute Qualifiers: Congestive heart failure type: combined (3) Pulmonary hypertension Status: Chronic (4) Liver failure Status: Chronic Qualifiers: Liver failure chronicity: chronic Hepatic coma status: without hepatic coma Qualified Code(s): K72.10 - Chronic hepatic failure without coma (5) Tobacco abuse Status: Chronic Comment: Smoking (6) Esophageal varices Status: Chronic (7) Cirrhosis of liver Status: Chronic Qualifiers: Hepatic cirrhosis type: unspecified hepatic cirrhosis Ascites presence: without ascites Qualified Code(s): K74.60 - Unspecified cirrhosis of liver (8) COPD (chronic obstructive pulmonary disease) Status: Chronic Qualifiers: COPD type: unspecified COPD Qualified Code(s): J44.9 - Chronic obstructive pulmonary disease, unspecified (9) CAD (coronary artery disease) Status: Chronic Comment: Pt. denies a history of [place] Qualifiers: Coronary Disease-Associated Artery/Lesion type: unspecified vessel or lesion type [place] vs. transplanted heart: [place] heart Associated angina: angina presence unspecified Qualified Code(s): I25.10 - Atherosclerotic heart disease of [place] coronary artery without angina pectoris - Follow up Plan Follow up with: Luis Mtz PA-C [Primary Care Provider] - Disposition: [facility] Prognosis: Fair Rehab Potential: Fair Overall status at discharge: patient is not back to baseline Medical - DS: Qual - VTE Deep Vein Thrombosis/Pulmonary Embolism Present on Admission: No
[2017-08-03] MEDS ORDERED: cefTRIAXone 1 GM in DEXTROSE 5% IN WATER 50 ML IV SCH (17:00)
[2017-08-03] MEDS ORDERED: CLINDAMYCIN 600 MG in DEXTROSE 5% IN WATER 50 ML IV SCH (18:00)
[2017-08-03] MEDS ORDERED: CIPROFLOXACIN 500 MG TABLET PO SCH (21:00)
[2017-08-04] MEDS ORDERED: FLU VACC QS2017-18 36MOS UP/PF 60 MCG/0.5 ML SYRINGE IM ONE (10:00)
== END 2017-08-03 17:00 | disposition short-term general hospital (02) | DRG 189 ==
LOC: ED 10:57 → ICU 15:19
PROVIDERS: ADMIT Internal Medicine; ATTEND Internal Medicine

== ENCOUNTER 2017-12-08 13:23 | Inpatient (IN) ==
[2017-12-08] MEDS ORDERED: IOPAMIDOL 100 ML BOTTLE IV ONE (13:24)
[2017-12-08] MEDS ORDERED: PHENobarb/HYOSCY/ATROPINE/SCOP 1 DOSE BOTTLE PO ONE (14:05)
[2017-12-08] MEDS ORDERED: ONDANSETRON 4 MG/2 ML VIAL IV ONE (14:05)
[2017-12-08] MEDS ORDERED: fentaNYL 100 MCG/2 ML VIAL IV ONE ×2 (14:21→16:02)
[2017-12-08] MEDS ORDERED: POTASSIUM CHLORIDE 40 MEQ in DEXTROSE 5% IN WATER 500 ML IV ONE (14:39)
[2017-12-08] MEDS ORDERED: POTASSIUM CHLORIDE 20 MEQ TABLET PO ONE (14:39)
[2017-12-08] MEDS ORDERED: diphenhydrAMINE 50 MG/ML VIAL IV ONE (14:46)
[2017-12-08] MEDS ORDERED: DEXAMETHASONE 10 MG/ML VIAL IV ONE (14:46)
[2017-12-08 14:49] LABS: Basophils # (Auto) 0 K/mcL (0.0-0.3); Basophils % (Auto) 0.1 % (0.0-2.0); Eosinophils # (Auto) 0.1 K/mcL (0.0-0.7); Eosinophils % (Auto) 2.7 % (0.0-7.0); Granulocytes % (Auto) 75.1 % (38.0-78.0); Lymphocytes # (Auto) 0.7 K/mcL (1.5-4.8); Lymphocytes % (Auto) 12.7 % (15.5-49.0); Mean Cell Volume 80.1 fL (80.0-100.0); Mean Corpuscular HGB Conc 32.8 g/dL (31.0-36.0); Mean Corpuscular Hemoglobin 26.2 pg (26.0-34.0); Monocytes # (Auto) 0.5 K/mcL (0.1-0.9); Monocytes % (Auto) 9.4 % (1.0-12.0); Platelet Count 78 K/mcL (140-440); RBC 3.92 M/mcL (4.50-5.90); Red Cell Distribution Width 18.8 % (11.5-14.5)
[2017-12-08] MEDS ORDERED: POTASSIUM CHLORIDE 20 MEQ/10 ML VIAL IV ONE (14:49)
[2017-12-08 15:05] LABS: Appearance,Urine CLEAR; Bacteria,Urine 0 /hpf (0); Bilirubin,Urine NEG (NEG); Color,Urine STRAW; Glucose,Urine (UA) NEGATIVE (NEG); Leukocyte Esterase,Urine NEG /uL (NEG); Mucus,Urine FEW /hpf (0); Protein,Urine NEG (NEG); Specific Gravity,Urine 1.005 (1.000-1.035); Urine Blood 0.03 mg/dL (<0.03); Urine RBC 3 /hpf (0-1); Urine Squamous Epithelial Cell < 1 /hpf (0-4); Urine WBC < 1 /hpf (0-4); Urobilinogen,Urine NEG (NEG)
[2017-12-08] MEDS ORDERED: POTASSIUM CHLORIDE 10 MEQ TABLET PO ONE (15:09)
[2017-12-08 15:22] LABS: ALT/SGPT 5 U/l (0-40); Albumin/Globulin Ratio 1.3 (1.0-2.3); Alkaline Phosphatase 93 U/L (39-117); Blood Urea Nitrogen 10 mg/dl (6-20); Creatine Kinase 36 IU/L (24-195); Creatine Kinase MB 1.5 ng/ml (0-4.9); Lipase 30 U/L (7-60); Myoglobin 28 ng/ml (28-72)
--- NOTE | 2017-12-08 18:04 | XRay Report ---
CLINICAL INFORMATION: Chest pain COMPARISON: 08/06/2017 FINDINGS: Marked cardiomegaly is unchanged. Mediastinum and pulmonary vessels are normal. Lungs are clear. No effusions IMPRESSION: Marked stable cardiomegaly. No CHF or other acute process Interpreted and Authenticated by: Gunnar Sethi 12/08/17
--- NOTE | 2017-12-08 18:24 | Cat Scan Report ---
CLINICAL INFORMATION: History of cirrhosis. GI bleeding COMPARISON: Abdomen and pelvic CT from 03/09/2016. TECHNIQUE: Following enteric contrast, 90 cc of Isovue-300 were injected intravenously, and 20 and 60 seconds later, 0.625 mm helical slices were obtained from the mid heart through the subtrochanteric regions. Following reconstruction, 2.5 mm sagittal, coronal and axial reformatted images were processed and reviewed at bone, lung and soft tissue windows. Five minutes later, 0.625 mm helical slices were obtained from the mid heart through the kidneys and viewed at soft tissue windows.The exam was performed using radiation dose optimization techniques including, but not limited to, automated exposure control, adjustment of the mA and/or kV according to patient size and use of iterative reconstruction technique. FINDINGS: Lung bases show mild cardiomegaly and mild bronchitis with scattered scarring. There are no effusions. Images through the abdomen show moderate cirrhotic changes in the liver featuring irregular cortical surface and heterogeneity in attenuation. No focal lesions suggestive of hepatoma. Portal hypertension evidenced by increased portal vein and varices in the perisplenic perigastric and paraesophageal region. There is also partial thrombosis of the portal confluence with extension into the superior mesenteric vein - a new finding. There is no ascites. The gallbladder is surgically absent. Intrahepatic and common bile ducts are normal caliber: CBD is 6 mm. The pancreas and both adrenal glands are normal. The spleen is mildly enlarged. The aorta is normal in contour and caliber with heavy as chronic plaque. A critical (greater than 90%) stenosis in the main right renal artery is noted. The right kidney has decreased from 10 cm to 8 cm since the previous study which may indicate chronic renal arterial insufficiency. No focal renal lesions. Images through the pelvis show prostate, seminal vesicles and urinary bladder to be unremarkable. There is mild edema in the perirectal region which is new. The colon appears unremarkable. There is mild dilatation of small bowel with mild thickening of the wall and plica circulares folds in the the duodenum and jejunum. No free air and no adenopathy. Bone windows show no osseous abnormality IMPRESSION: 1. Slight progression in cirrhotic changes. Portal hypertension noted featuring enlarged portal vein and varices in the paraesophageal perigastric and peripancreatic perisplenic region. Bleeding varices potentially be a source of GI blood loss There is partial thrombus at the portal venous confluence extending into the SMV. No ascites. 2. Mild dilatation slightly longer circulares folds of duodenum and jejunum presumably related to portal hypertension and is SMV thrombus. This could also be a source of GI blood loss. 3. Critical (90% stenosis) of the proximal right renal artery. Right kidney has decreased in size from previous study suggesting chronic renal arterial insufficiency. Suggest referral to interventional radiology for stenting Interpreted and Authenticated by: Gunnar Sethi 12/08/17
[2017-12-08] MEDS ORDERED: OCTREOTIDE ACETATE 50 MCG/ML AMPUL IV ONE (18:42)
[2017-12-08] MEDS ORDERED: OCTREOTIDE ACETATE 500 MCG in 0.9 % SODIUM CHLORIDE 495 ML IV SCH (18:45)
--- NOTE | 2017-12-08 18:46 | Emergency Department Note ---
General Adult HPI - General Chief complaint: Chest Pain Stated complaint: Blood in stool, left arm swelling Time Seen by Provider: 12/08/17 13:29 Source: patient Mode of arrival: ambulatory Limitations: no limitations - History of Present Illness HPI Narrative: 62-year-old male comes in for chest pain for the last 3 days on his left side. He was sleeping and he woke up with it had some mild shortness of breath with that. Additionally he also reports some dark red blood from his bottom. He does have a history of hemorrhoids and versus from cirrhosis of the liver. He is not having any rectal pain or belly pain at this time. He does report however diarrhea for the last 2 months and some diaphoresis today. Just prior to coming into the ER he dropped off a stool sample that was actually ordered by his PCP for workup of the diarrhea - Related Data Home Medications Medication Instructions Recorded Confirmed mirtazapine 15 mg tablet 15 mg PO QHS 09/28/16 10/11/17 nebulizer + accessories unit 08/02/17 10/11/17 ipratropium-albuterol 0.5 mg-3 3 ml INHALATION Q2-4H PRN 08/31/17 10/11/17 mg(2.5 mg base)/3 mL nebulization soln lisinopril 10 mg tablet 10 mg PO BID tab 08/31/17 10/11/17 ambrisentan 10 mg tablet 10 mg PO QDAY 09/01/17 10/11/17 amiloride 5 mg tablet 5 mg PO QDAY 09/01/17 10/11/17 ascorbic acid (vitamin C) 1,000 mg 1 g PO QDAY tab 09/01/17 10/11/17 tablet cholecalciferol (vitamin D3) 1,000 1,000 unit PO QDAY cap 09/01/17 10/11/17 unit capsule ferrous sulfate ER 250 mg (50 mg 250 mg PO QDAY tab 09/01/17 10/11/17 iron) tablet,extended release fluticasone 220 mcg/actuation HFA 1 puff INHALATION BID 09/01/17 10/11/17 aerosol inhaler imipramine 25 mg tablet 25 mg PO QHS 09/01/17 10/11/17 lactulose 10 gram/15 mL oral 10 g PO QDAY 09/01/17 10/11/17 solution multivitamin tablet 1 tab PO QDAY 09/01/17 10/11/17 ondansetron 4 mg disintegrating 4 mg PO Q4H 09/01/17 10/11/17 tablet tadalafil 20 mg tablet 20 mg PO QDAY tab 09/01/17 10/11/17 tiotropium bromide 18 mcg capsule 1 cap INHALATION QDAY 09/01/17 10/11/17 with inhalation device vitamin a PO 09/01/17 10/11/17 carvedilol 3.125 mg tablet 6.25 mg PO BID tab 09/21/17 10/11/17 furosemide 80 mg tablet 80 mg PO BID tab 09/21/17 10/11/17 Previous Rx's Medication Instructions Recorded nicotine 7 mg/24 hr daily 1 patch TRANSDERMA Q24H #14 each 08/25/17 transdermal patch traMADol [Ultram] 50 mg PO QHS PRN #4 tab 09/13/17 potassium chloride ER 20 mEq 20 meq PO QDAY 30 Days #30 tab 09/21/17 tablet,extended release pantoprazole 40 mg tablet,delayed 40 mg PO QAM #30 tab 11/10/17 release Allergies Allergy/AdvReac Type Severity Reaction Status Date / Time Iodinated Contrast- Oral and Allergy Intermediate Hives Verified 10/11/17 10:17 IV Dye Amoxicillin [AMOXICILLIN] Allergy Mild Itching Verified 10/11/17 10:17 Review of Systems All systems ED: reviewed and negative except as stated. Past Medical History - Past Medical History Attestation: Yes: The following information was validated with the patient. 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 Normocephalic atraumatic. Conjunctive are clear sclerae nonicteric. No nasal discharge or congestion. Oropharynx is pink and moist. Neck is supple without lymphadenopathy or thyromegaly. No carotid bruit. Heart is regular rate and rhythm. Palpation of anterior chest wall does reproduce tenderness especially on the left side. However no deformity is noted. Lungs are clear to auscultation bilaterally without wheezes rales rhonchi or respiratory distress. Abdomen soft nontender nondistended. No peritoneal signs or guarding. Rectal exam shows small amount of pink blood, definitely guaiac positive. I do not see an external hemorrhoid nor do I feel an internal 1. Adequate rectal tone no stool in the vault. Rectum is somewhat macerated from the diarrhea. trace pedal edema on the right foot/ankle but a little bit worse on the left. The left hand and wrist however have some significant edema with no obvious source. I do not see any abrasions lacerations erythema or signs of cellulitis. He is able to move that hand normally. He has a scar at the right shoulder from previous surgery. He is alert oriented able to answer questions appropriately but he does speak slowly some mild dysarthria likely residual from his previous stroke. This does appear to be his baseline-his is there for the interview and exam Limitations: no limitations Course Vital Signs Temperature 97.9 F 12/08/17 13:24 Pulse Rate 81 12/08/17 13:24 Respiratory Rate 16 12/08/17 13:24 Blood Pressure 164/77 12/08/17 13:24 Pulse Oximetry (%) 100 12/08/17 13:24 Temperature 97.6 F 12/08/17 21:23 Pulse Rate 84 12/08/17 21:23 Respiratory Rate 18 12/08/17 21:23 Blood Pressure 151/87 12/08/17 21:23 Pulse Oximetry (%) 98 12/08/17 21:23 Medical Decision Making - Medical Records Medical records reviewed: Yes I reviewed the patient's medical records. - Lab Data Lab results reviewed: Yes I reviewed the patient's lab results. Result diagrams: 12/08/17 23:03 12/08/17 14:16 Lab Results 12/08/17 12/08/17 12/08/17 Range/Units 14:16 14:16 14:16 WBC 5.6 (4.5-11.0) K/mcL RBC 3.92 L (4.50-5.90) M/mcL Hgb 10.3 L (13.5-16.5) g/dL Hct 31.4 L (41.0-55.0) % POC Hct 33.0 L (41.0-55.0) % MCV 80.1 (80.0-100.0) fL MCH 26.2 (26.0-34.0) pg MCHC 32.8 (31.0-36.0) g/dL RDW 18.8 H (11.5-14.5) % Plt Count 78 L (140-440) K/mcL MPV 9.4 (7.4-10.4) fL Gran % 75.1 (38.0-78.0) % Lymph % (Auto) 12.7 L (15.5-49.0) % [place] % (Auto) 9.4 (1.0-12.0) % Eos % (Auto) 2.7 (0.0-7.0) % Baso % (Auto) 0.1 (0.0-2.0) % Gran # 4.2 (1.8-8.0) K/mcL Lymph # (Auto) 0.7 L (1.5-4.8) K/mcL [place] # (Auto) 0.5 (0.1-0.9) K/mcL Eos # (Auto) 0.1 (0.0-0.7) K/mcL Baso # (Auto) 0 (0.0-0.3) K/mcL PT (11.9-14.5) sec INR (0.9-1.1) VBG Lactic Acid (0.5-2.2) mmol/L POC Sodium 141 (133-145) mmol/L Sodium 139 (133-145) mmol/L POC Potassium 2.6 L* (3.3-5.1) mmol/L Potassium 2.8 L* (3.3-5.1) mmol/L POC Chloride 102 (96-108) mmol/L Chloride 101 (96-108) mmol/L Carbon Dioxide 23 (22-30) mmol/L POC Total CO2 25 (22-30) mmol/L Anion Gap 15.0 (8-16) POC BUN 9 (6-20) mg/dl BUN 10 (6-20) mg/dl Creatinine 1.0 (0.7-1.2) mg/dl POC Creatinine 1.0 (0.7-1.2) mg/dl GFR Calculation 81 Glucose 142 H (70-105) mg/dL POC Glucose 145 H (70-105) mg/dL Calcium 9.0 (8.6-10.4) mg/dl POC WB Ioniz Calcium 1.13 L (1.16-1.32) mmol/L Magnesium 1.6 (1.6-2.5) mg/dL Total Bilirubin 1.3 H (0.0-1.0) mg/dL AST 14 (0-37) U/l ALT 5 (0-40) U/l Alkaline Phosphatase 93 (39-117) U/L Ammonia (16-60) umol/L Total Creatine Kinase 36 (24-195) IU/L CK-MB (CK-2) 1.5 (0-4.9) ng/ml Myoglobin 28 (28-72) ng/ml Troponin T < 0.01 (0-0.03) ng/ml NT-Pro-B Natriuret Pep 5310.0 H (0-125) pg/ml Total Protein 7.2 (5.9-8.4) gm/dL Albumin 4.0 (3.2-5.2) gm/dL Globulin 3.2 (2.2-3.7) gm/dL Albumin/Globulin Ratio 1.3 (1.0-2.3) Lipase 30 (7-60) U/L Urine Color Urine Appearance Urine pH (5.0-9.0) Ur Specific [place] (1.000-1.035) Urine Protein (NEG) mg/dL Urine Glucose (UA) (NEG) mg/dL Urine Ketones (NEG) mg/dL Urine Occult Blood (<0.03) mg/dL Urine Nitrate (NEG) Urine Bilirubin (NEG) mg/dL Urine Urobilinogen (NEG) mg/dL Ur Leukocyte Esterase (NEG) /uL Urine RBC (0-1) /hpf Urine WBC (0-4) /hpf Ur Squamous Epith Cells (0-4) /hpf Urine Bacteria (0) /hpf Urine Mucus (0) /hpf Ur Culture Indicated? 12/08/17 12/08/17 12/08/17 Range/Units 14:16 14:38 14:56 WBC (4.5-11.0) K/mcL RBC (4.50-5.90) M/mcL Hgb (13.5-16.5) g/dL Hct (41.0-55.0) % POC Hct (41.0-55.0) % MCV (80.0-100.0) fL MCH (26.0-34.0) pg MCHC (31.0-36.0) g/dL RDW (11.5-14.5) % Plt Count (140-440) K/mcL MPV (7.4-10.4) fL Gran % (38.0-78.0) % Lymph % (Auto) (15.5-49.0) % [place] % (Auto) (1.0-12.0) % Eos % (Auto) (0.0-7.0) % Baso % (Auto) (0.0-2.0) % Gran # (1.8-8.0) K/mcL Lymph # (Auto) (1.5-4.8) K/mcL [place] # (Auto) (0.1-0.9) K/mcL Eos # (Auto) (0.0-0.7) K/mcL Baso # (Auto) (0.0-0.3) K/mcL PT 15.3 H (11.9-14.5) sec INR 1.2 H (0.9-1.1) VBG Lactic Acid 1.1 (0.5-2.2) mmol/L POC Sodium (133-145) mmol/L Sodium (133-145) mmol/L POC Potassium (3.3-5.1) mmol/L Potassium (3.3-5.1) mmol/L POC Chloride (96-108) mmol/L Chloride (96-108) mmol/L Carbon Dioxide (22-30) mmol/L POC Total CO2 (22-30) mmol/L Anion Gap (8-16) POC BUN (6-20) mg/dl BUN (6-20) mg/dl Creatinine (0.7-1.2) mg/dl POC Creatinine (0.7-1.2) mg/dl GFR Calculation Glucose (70-105) mg/dL POC Glucose (70-105) mg/dL Calcium (8.6-10.4) mg/dl POC WB Ioniz Calcium (1.16-1.32) mmol/L Magnesium (1.6-2.5) mg/dL Total Bilirubin (0.0-1.0) mg/dL AST (0-37) U/l ALT (0-40) U/l Alkaline Phosphatase (39-117) U/L Ammonia (16-60) umol/L Total Creatine Kinase (24-195) IU/L CK-MB (CK-2) (0-4.9) ng/ml Myoglobin (28-72) ng/ml Troponin T (0-0.03) ng/ml NT-Pro-B Natriuret Pep (0-125) pg/ml Total Protein (5.9-8.4) gm/dL Albumin (3.2-5.2) gm/dL Globulin (2.2-3.7) gm/dL Albumin/Globulin Ratio (1.0-2.3) Lipase (7-60) U/L Urine Color Straw Urine Appearance Clear Urine pH 7.0 (5.0-9.0) Ur Specific [place] 1.005 (1.000-1.035) Urine Protein Neg (NEG) mg/dL Urine Glucose (UA) Negative (NEG) mg/dL Urine Ketones Neg (NEG) mg/dL Urine Occult Blood 0.03 A (<0.03) mg/dL Urine Nitrate Neg (NEG) Urine Bilirubin Neg (NEG) mg/dL Urine Urobilinogen Neg (NEG) mg/dL Ur Leukocyte Esterase Neg (NEG) /uL Urine RBC 3 H (0-1) /hpf Urine WBC < 1 (0-4) /hpf Ur Squamous Epith Cells < 1 (0-4) /hpf Urine Bacteria 0 (0) /hpf Urine Mucus Few (0) /hpf Ur Culture Indicated? No 12/08/17 Range/Units 14:56 WBC (4.5-11.0) K/mcL RBC (4.50-5.90) M/mcL Hgb (13.5-16.5) g/dL Hct (41.0-55.0) % POC Hct (41.0-55.0) % MCV (80.0-100.0) fL MCH (26.0-34.0) pg MCHC (31.0-36.0) g/dL RDW (11.5-14.5) % Plt Count (140-440) K/mcL MPV (7.4-10.4) fL Gran % (38.0-78.0) % Lymph % (Auto) (15.5-49.0) % [place] % (Auto) (1.0-12.0) % Eos % (Auto) (0.0-7.0) % Baso % (Auto) (0.0-2.0) % Gran # (1.8-8.0) K/mcL Lymph # (Auto) (1.5-4.8) K/mcL [place] # (Auto) (0.1-0.9) K/mcL Eos # (Auto) (0.0-0.7) K/mcL Baso # (Auto) (0.0-0.3) K/mcL PT (11.9-14.5) sec INR (0.9-1.1) VBG Lactic Acid (0.5-2.2) mmol/L POC Sodium (133-145) mmol/L Sodium (133-145) mmol/L POC Potassium (3.3-5.1) mmol/L Potassium (3.3-5.1) mmol/L POC Chloride (96-108) mmol/L Chloride (96-108) mmol/L Carbon Dioxide (22-30) mmol/L POC Total CO2 (22-30) mmol/L Anion Gap (8-16) POC BUN (6-20) mg/dl BUN (6-20) mg/dl Creatinine (0.7-1.2) mg/dl POC Creatinine (0.7-1.2) mg/dl GFR Calculation Glucose (70-105) mg/dL POC Glucose (70-105) mg/dL Calcium (8.6-10.4) mg/dl POC WB Ioniz Calcium (1.16-1.32) mmol/L Magnesium (1.6-2.5) mg/dL Total Bilirubin (0.0-1.0) mg/dL AST (0-37) U/l ALT (0-40) U/l Alkaline Phosphatase (39-117) U/L Ammonia 34 (16-60) umol/L Total Creatine Kinase (24-195) IU/L CK-MB (CK-2) (0-4.9) ng/ml Myoglobin (28-72) ng/ml Troponin T (0-0.03) ng/ml NT-Pro-B Natriuret Pep (0-125) pg/ml Total Protein (5.9-8.4) gm/dL Albumin (3.2-5.2) gm/dL Globulin (2.2-3.7) gm/dL Albumin/Globulin Ratio (1.0-2.3) Lipase (7-60) U/L Urine Color Urine Appearance Urine pH (5.0-9.0) Ur Specific [place] (1.000-1.035) Urine Protein (NEG) mg/dL Urine Glucose (UA) (NEG) mg/dL Urine Ketones (NEG) mg/dL Urine Occult Blood (<0.03) mg/dL Urine Nitrate (NEG) Urine Bilirubin (NEG) mg/dL Urine Urobilinogen (NEG) mg/dL Ur Leukocyte Esterase (NEG) /uL Urine RBC (0-1) /hpf Urine WBC (0-4) /hpf Ur Squamous Epith Cells (0-4) /hpf Urine Bacteria (0) /hpf Urine Mucus (0) /hpf Ur Culture Indicated? - Radiology Data Radiology results reviewed: Yes I reviewed the patient's radiology results. CT scan of the abdomen pelvis shows portal vein thrombosis and several potential sources of GI bleeding. Notable also stenosis of the renal artery on the left - EKG Data EKG #1 EKG attestation: Yes I reviewed and interpreted this EKG. EKG results narrative: EKG shows rate 89 with perhaps some minimal ST depression in V3 to V4 but this is nonspecific. 1 PVC as well as some intraventricular conduction delay Disposition Pt seen by CERTIFIED NURSING ASSISTANT/PA only: No Clinical Impression: Lower gastrointestinal hemorrhage, Hypokalemia, Renal artery stenosis Chest pain Qualifiers: Chest pain type: unspecified Qualified Code(s): R07.9 - Chest pain, unspecified Congestive heart failure Qualifiers: Heart failure type: unspecified Heart failure chronicity: chronic Qualified Code(s): I50.9 - Heart failure, unspecified Summary: Initially interviewed and examined, started workup with laboratory and imaging. I did not start IV fluids at first because significant GI bleed was not confirmed and he had edema in his left hand and some on his pedal areas which were concerning for possible CHF per history. Additionally because he reports allergy to iodinated contrast was ordering CT scan without contrast but we were able to treat this with Decadron and Benadryl and get those studies done with contrast for better visualization of possible GI bleed sources. Additionally we treated his pain with fentanyl and Zofran Treated hypokalemia with K rider and oral potassium Chest pain workup was negative-troponin was normal after 3 days of chest pain About residential through his day he had a large bloody watery stool. After we got his results back I discussed his case with Dr. Barrera who agreed to come in and do endoscopy and consult-we were concerned about a variceal bleed per his history of cirrhosis and varices. He recommended starting octreotide which was done. I further discussed the case with Dr. Kasey Lynch who accepted the patient in transfer to the ICU after emergent endoscopy Disposition: Xfer As Inpt ([facility]) Condition: Critical
[2017-12-08] MEDS ORDERED: PROPOFOL 200 MG/20 ML VIAL IV SCH (19:30)
[2017-12-08] MEDS ORDERED: MIDAZOLAM 2 MG/2 ML VIAL IV SCH (19:30)
[2017-12-08] MEDS ORDERED: PROPOFOL 40 ML IV ONE (19:36)
[2017-12-08] MEDS ORDERED: MIDAZOLAM 2 MG/2 ML VIAL ONE (19:36)
[2017-12-08] MEDS ORDERED: GLUCAGON,HUMAN RECOMBINANT 1 MG VIAL IV ONE (20:59)
[2017-12-08] MEDS ORDERED: GLUCAGON,HUMAN RECOMBINANT 1 MG VIAL ONE (21:02)
[2017-12-08] MEDS ORDERED: ONDANSETRON 4 MG/2 ML VIAL IV PRN (22:44)
[2017-12-08] MEDS ORDERED: ACETAMINOPHEN 325 MG TABLET PO PRN (22:44)
[2017-12-08] MEDS ORDERED: ACETAMINOPHEN 325 MG TABLET PO ONE (22:49)
[2017-12-08] MEDS ORDERED: ONDANSETRON 4 MG/2 ML VIAL ONE (22:49)
--- NOTE | 2017-12-08 22:56 | Internal Med History&Physical ---
Medical - H&P: HPI Patient information: Note initiated : 12/08/17 at 10:51 pm Service Date, if different from initiated Date: [] Patient: Shane Marroquin 62 y/o M admitted on 12/08/17 for Blood In Stool, Left Arm Swelling. Chief Complaint: Rectal bleeding, chest pain History of present illness: Patient 62-year-old male with multiple medical problems including cirrhosis secondary to history of alcohol and hepatitis C with a prior history of varices , history of stroke with some left-sided weakness, history of congestive heart failure and coronary disease with multiple stenting's in the past, history of GI bleeds who presents to the ED for couple complaints. Patient states she's been having pain in his left mid chest that goes to the left occasionally for the last 4 days since Tuesday. It awoke him from sleep, it 's fairly constant. It's waxed and waned from minimal up to 7/10 in intensity. It gets worse when he takes a deep breath or coughs forcefully. It does not radiate to the neck or jaw. He's having some pain in his left arm, however that appears to be related to his left wrist which he injured while pushing off on Tuesday getting up from a chair and subsequently developed swelling. In addition this morning he was collecting his stool sample because he been having ongoing diarrhea. When he defecated in the had passed purple clots. Because of the chest pain and blood per rectum he presents to the ED. The ED, he is being worked up for his chest pain. He subsequently developed bright red blood per rectum. He had liquid bloody stool on rectal exam. Given his history of cirrhosis, there is concern for variceal bleeding. He was started on octreotide. Dr. Barrera from gastroenterology was contacted, and I was asked to see the patient for admission. Patient states he's had bloody bowel movements the past. He has a history of variceal bleed. He denies any hematemesis or any emesis. He's had some mild nausea today. He has also had some mild epigastric pain today. Also had some mild left lower quadrant pain. He is not on anticoagulants, he is not using aspirin, he is not taking nonsteroidals. Old records are subsequently obtained, indicating the patient had EGD in 2014 with banding of varices, however in 2015 EGD revealed no varices. Subsequently , he had colonoscopy in August 2017 secondary to a hemoglobin of 7.7, had no evidence of varices, but had 10 AVMs in the right colon that were cauterized. That was by Dr. Ruiz. On September 30, 2017 Dr. Chappell performed endoscopy at [facility] secondary to presentation with GI bleed with a hemoglobin of 7.7. EGD showed no varices in the esophagus or stomach. There was a gastric AVM. Colonoscopy at that time showed an old polypectomy site with an intact clip but rectal AVMs which were ablated. Patient otherwise was complaining of about one and half months of loose stools. He occasionally feels short of breath, he's had an occasional cough with sputum production., None currently. He generally feels cold most of the time, but has not had fevers or sweats. He has intermittent lower extremity edema, his left foot is been a bit swollen for the last few days. Subsequently to me seeing the patient the ED, Dr. Barrera took the patient to endoscopy. Upper endoscopy revealed no varices, thick tannish fluid in the stomach, but no blood. Subsequently, colonoscopy showed blood in the colon. There is no blood in the terminal ileum. After washing out the colon, there was an AVM in the transverse colon that was ablated. There were no diverticula , no rectal AVMs, no other source of bleeding identified. All systems: reviewed and no additional remarkable complaints except as stated Medical - H&P: PMH Medical history: CAD (coronary artery disease) (Chronic) Moderate aortic insufficiency (Chronic) Tricuspid regurgitation (Chronic) Severe pulmonary hypertension (Chronic)-treated with milrinone and epoprostanol at [facility] 07/2017 Congestive heart failure (Chronic), EF 45% Venous thrombosis-PE diagnosed 07/2017; near occlusive portal v. thrombosis 2016 Hypertensive retinopathy (Chronic) Hypertension, essential (Chronic) Cirrhosis of liver (Chronic) Hepatitis C, chronic (Chronic), s/p Rx Esophageal varices (Chronic) Adenomatous colon polyp (Chronic) Angiodysplasia of colon (Chronic) History of alcohol abuse (Chronic) Diabetes mellitus (Chronic) Depression (Chronic 12/18/13) COPD (chronic obstructive pulmonary disease) (Chronic) Cerebrovascular accident (Resolved) Carotid artery occlusion (Resolved) Lower urinary tract symptoms due to benign prostatic hyperplasia (Resolved 04/03) Chronic pain of right ankle (Chronic) Ulcer of right leg (Resolved) Right foot ulcer (Resolved) Cellulitis of right foot (Resolved) Edema extremities (Resolved) Fracture, shoulder (Resolved) Tobacco abuse (Chronic) Thrombocytopenia (Chronic) Neuropathy (Chronic) Ankle fracture (Resolved) Surgical history: History of photovaporization of prostate (Resolved) Hx of knee surgery (Resolved) History of coronary artery stent placement (Resolved) Hx of cholecystectomy (Resolved) Status post open reduction with internal fixation (ORIF) of fracture of ankle ( Resolved) Pertinent family history: Unknown Alcohol abuse Migraine Osteoarthritis Cerebrovascular accident Unknown Asthma Diabetes mellitus Essential hypertension Mother Chronic obstructive pulmonary disease Cardiac disease Father History of malignant neoplasm Social history: Patient drinks alcohol every few weeks. 4-5 beers at a time. His last drink was on Tuesday. He smoking about 8 cigarettes a day. Medical - H&P: Meds Home Medications Medication Instructions Recorded Confirmed Type mirtazapine 15 mg tablet 15 mg PO QHS 09/28/16 12/09/17 History nebulizer + accessories unit 08/02/17 10/11/17 History nicotine 7 mg/24 hr daily 1 patch TRANSDERMA Q24H #14 each 08/25/17 10/11/17 Rx transdermal patch ipratropium-albuterol 0.5 mg-3 3 ml INHALATION Q2-4H PRN 08/31/17 12/09/17 History mg(2.5 mg base)/3 mL nebulization soln lisinopril 10 mg tablet 10 mg PO BID tab 08/31/17 12/09/17 History ambrisentan 10 mg tablet 10 mg PO QDAY 09/01/17 12/09/17 History amiloride 5 mg tablet 5 mg PO QDAY 09/01/17 10/11/17 History ascorbic acid (vitamin C) 1,000 mg 1 g PO QDAY tab 09/01/17 10/11/17 History tablet cholecalciferol (vitamin D3) 1,000 1,000 unit PO QDAY cap 09/01/17 10/11/17 History unit capsule ferrous sulfate ER 250 mg (50 mg 250 mg PO QDAY tab 09/01/17 10/11/17 History iron) tablet,extended release fluticasone 220 mcg/actuation HFA 1 puff INHALATION BID 09/01/17 12/09/17 History aerosol inhaler imipramine 25 mg tablet 25 mg PO QHS 09/01/17 12/09/17 History lactulose 10 gram/15 mL oral 10 g PO QDAY 09/01/17 10/11/17 History solution multivitamin tablet 1 tab PO QDAY 09/01/17 10/11/17 History ondansetron 4 mg disintegrating 4 mg PO Q4H 09/01/17 12/09/17 History tablet tadalafil 20 mg tablet 20 mg PO QDAY tab 09/01/17 10/11/17 History tiotropium bromide 18 mcg capsule 1 cap INHALATION QDAY 09/01/17 12/09/17 History with inhalation device vitamin a PO 09/01/17 10/11/17 History traMADol [Ultram] 50 mg PO QHS PRN #4 tab 09/13/17 12/09/17 Rx carvedilol 3.125 mg tablet 6.25 mg PO BID tab 09/21/17 12/09/17 History furosemide 80 mg tablet 80 mg PO BID tab 09/21/17 12/09/17 History potassium chloride ER 20 mEq 20 meq PO QDAY 30 Days #30 tab 09/21/17 10/11/17 Rx tablet,extended release pantoprazole 40 mg tablet,delayed 40 mg PO QAM #30 tab 11/10/17 12/09/17 Rx release Allergies Allergy/AdvReac Type Severity Reaction Status Date / Time Iodinated Contrast- Oral and Allergy Intermediate Hives Verified 10/11/17 10:17 IV Dye Amoxicillin [AMOXICILLIN] Allergy Mild Itching Verified 10/11/17 10:17 Medical - H&P: Exam - Constitutional Vitals: Temp Pulse Resp BP Pulse Ox 97.9 F 88 16 154/97 91 12/08/17 19:35 12/08/17 21:15 12/08/17 21:15 12/08/17 21:15 12/08/17 21:15 Exam: General: Chronically ill-appearing, no acute distress HEENT: Normocephalic. Pupils 3 mm and equal. No scleral icterus. Oropharynx is clear, moist mucous membranes. Tongue is midline. Neck: Supple, no thyromegaly, normal inspection. Chest: Basal rales, otherwise clear, unlabored Cardiovascular: Regular rate and rhythm with 2/6 murmur at left sternal border. Carotid pulses are 2+ without bruit. JVP is not elevated. There is no lower extremity edema. Abdomen: Soft, mildly distended, tympanic to percussion. Liver and spleen are not palpable. There is no tenderness with palpation. No guarding or rebound. Lymphatic: No cervical or supraclavicular lymphadenopathy appreciated. Skin: Warm, dry, skin turgor is normal. Musculoskeletal: Swelling over the left wrist and dorsum of the hand. There is tenderness with passive range of motion of the wrist. Able to flex all fingers on the left hand. Otherwise no joint deformities. No cyanosis. Neurologic: Alert, oriented to person place and situation.. Speech is mildly dysarthric. Cranial nerves II through XII are grossly intact. Some mild weakness on the left, though unclear if that's related to pain in the left arm. No asterixis. Medical - H&P: Reslt - Labs CBC & Chem 7: 12/09/17 08:07 12/09/17 04:08 Labs: Short CBC 12/08/17 Range/Units 14:16 WBC 5.6 (4.5-11.0) K/mcL Hgb 10.3 L (13.5-16.5) g/dL Hct 31.4 L (41.0-55.0) % Plt Count 78 L (140-440) K/mcL BMP 12/08/17 14:16 Sodium 139 Potassium 2.8 L* Chloride 101 Carbon Dioxide 23 BUN 10 Creatinine 1.0 Glucose 142 H Calcium 9.0 Cardiac Enzymes 12/08/17 12/08/17 Range/Units 14:16 14:16 Total Creatine Kinase 36 (24-195) IU/L CK-MB (CK-2) 1.5 (0-4.9) ng/ml Troponin T < 0.01 (0-0.03) ng/ml Liver Function 12/08/17 Range/Units 14:16 Total Bilirubin 1.3 H (0.0-1.0) mg/dL AST 14 (0-37) U/l ALT 5 (0-40) U/l Alkaline Phosphatase 93 (39-117) U/L Albumin 4.0 (3.2-5.2) gm/dL Urine 12/08/17 Range/Units 14:38 Urine Color Straw Urine Appearance Clear Urine pH 7.0 (5.0-9.0) Ur Specific Callaway 1.005 (1.000-1.035) Urine Protein Neg (NEG) mg/dL Urine Glucose (UA) Negative (NEG) mg/dL - EKG Data -: EKG Reviewed by Myself (SR at 89 with PVC's, no acute injury) - Imaging and Cardiology Chest x-ray Status: image reviewed by me Additional comments: IMPRESSION: Marked stable cardiomegaly. No CHF or other acute process CT scan - abdomen Additional comments: IMPRESSION: 1. Slight progression in cirrhotic changes. Portal hypertension noted featuring enlarged portal vein and varices in the paraesophageal perigastric and peripancreatic perisplenic region. Bleeding varices potentially be a source of GI blood loss There is partial thrombus at the portal venous confluence extending into the SMV. No ascites. 2. Mild dilatation slightly longer circulares folds of duodenum and jejunum presumably related to portal hypertension and is SMV thrombus. This could also be a source of GI blood loss. 3. Critical (90% stenosis) of the proximal right renal artery. Right kidney has decreased in size from previous study suggesting chronic renal arterial insufficiency. Suggest referral to interventional radiology for stenting Medical - H&P: A/P (1) Lower gastrointestinal hemorrhage Current visit: Yes Status: Acute (2) Chest pain Current visit: Yes Status: Acute (3) Hypokalemia Current visit: Yes Status: Acute (4) CAD (coronary artery disease) Problem details: Pt. denies a history of TX Current visit: No Status: Chronic - Narrative A/P Narrative: 62-year-old male with multiple medical problems including severe pulmonary hypertension, congestive heart failure, COPD, cirrhosis with portal hypertension and partial portal vein thrombosis presents with bloody bowel movements as well as left-sided chest pain. GI bleed. Colonoscopy and EGD have already been performed, only source of bleeding was AVM in the transverse colon. Patient has history of multiple AVMs with colonic bleed since August. He may continue to have some blood loss, but no high risk lesion such as varices or ulcer disease. This is the patient' s third episode of blood loss associated with AVMs in the past 3 months, his second hospitalization for gastrointestinal hemorrhage during that time-frame. He will require close monitoring for ongoing bleeding, particularly given his multiple, advanced/end-stage comorbidities. Plan: 1. Inpatient admission to PCU status 2. Continue octreotide 24-48h as treatment for AVMs, discussed with Dr. Barerra 3. Trend hemoglobins 4. Type and screen 5. Full liquid diet Cirrhosis with portal hypertension. Currently does not appear to be decompensated. No evidence of varices on EGD this evening. Plan: Monitor. Hypokalemia. Possibly from GI loss, has had diarrhea for the last month or so. Plan: Replete Severe pulmonary hypertension. At risk for respiratory failure, particularly with fluid shifts. Will need to be cautious if he needs any blood products. Plan: Reconcile home meds, resume pulmonary hypertension meds History of pulmonary embolism. Also has partial portal vein thrombosis. However at high risk for rebleeding. Anticoagulation is contraindicated. He was not on anticoagulants prior to his presentation to [facility]. Plan: SCDs for DVT prophylaxis Type 2 diabetes mellitus. Plan: Accu-Cheks, sliding scale insulin. Left wrist pain, injury as he slipped pushing off from a chair. Plan: Check wrist films to evaluate for fracture. Chest pain. Ongoing and constant since Tuesday. Troponin negative. EKG unremarkable. Suspect noncardiac. Plan: Monitor Renal artery stenosis. Noted on CT angiogram of the abdomen today. Given the patient's multiple comorbidities, he may not be a candidate for intervention. Plan: Monitor Prophylaxis: PPI, SCDs. CODE STATUS: The patient had extensive palliative care discussions at [facility] in [facility] in August. He was DNR/DNI at that time. Currently after our discussion here he wishes to be full code.
[2017-12-08] MEDS: 0.9 % SODIUM CHLORIDE 10 ML SYRINGE IV SCH (23:01)
[2017-12-09] MEDS: oxyCODONE HCL 5 MG TABLET PO PRN ×5 (00:07→22:53)
[2017-12-09] MEDS ORDERED: oxyCODONE HCL 5 MG TABLET PO ONE (00:07)
--- NOTE | 2017-12-09 00:13 | Consultation ---
DATE OF CONSULTATION: 12/08/2017 DICTATED CONSULT DONE: 12/08/2017 CHIEF COMPLAINT: Gross rectal bleeding. HISTORY OF PRESENT ILLNESS: The patient is a 62-year-old white male with a complex medical history. His primary provider I believe is Luis Mtz and his customer relationship specialist has been Dr. Yuan Guthrie. The patient has a significant history of alcohol abuse and was eventually treated successfully for hepatitis C as of 2015. However, he has developed cirrhosis and was noted to have at least partial portal vein thrombosis as of 05/2015. He back in 2013 apparently had intractable ascites. He last had esophageal varices banded in 06/[address] Guthrie. After 2014 apparently there was some endoscopy performed by Dr. Guthrie, I think in 2015, which did not show any varices requiring banding. The patient has had complications of his alcohol drinking including cardiomyopathy as determined by an admission at a [facility] I think in late 2016. In terms of background history, I should note that Dr. Guthrie did perform a colonoscopy in 08/2017 with findings of multiple (about 10) arteriovenous malformations at the right side of the colon which I believe were cauterized. He also took off a couple of small polyps; I think these were tubular adenomas. Even more recently, however, Dr. Marco Chappell was called to evaluate and treat the patient at [facility] on 09/30/2017 when the patient had a hemoglobin down to 7.7 and required 3 units of packed red blood cell transfusion. Dr. Chappell performed an EGD and found to absolutely no gastric or esophageal varices. He did find some small AVMs in the stomach which he cauterized. No other potential bleeding sources were found. He then performed a colonoscopy and found no residual AVMs at the right side of the colon from Dr. Guthrie's previous workup a month earlier. He did see a clip at the polypectomy sites, but there was no bleeding from polypectomy site. Dr. Chappell identified a couple of 2 or 3 AVMs in the rectum, which he cauterized by APC and the patient was eventually discharged home. Beginning 3 nights ago at home the patient has been experiencing chest pain and with it left arm pain. He did not come to the Emergency Room at that point, however. He has had the pain in the chest and left arm continuously now for about 3 days. With it he clearly has swelling of his left arm and especially the left hand. Proximally the arm is not particularly swollen, but the left hand is definitely swollen. It is hard to understand, but the patient has chronic diarrhea and chronic abdominal pains and I believe was obtaining a stool specimen at home for C. diff and as of this morning noted gross blood per rectum. He was advised to go to the emergency room and did so. At the ER, he has had a CAT scan that showed probable portal vein thrombosis. There is no acute intra-abdominal pathology identified to explain abdominal pain. He really does not have a whole lot of pain beyond his chronic status. At the emergency room, however, he did pass gross blood with clots observed by nursing staff. I was called and I did not have the data outlined in the paragraph above at the time. I had the patient admitted to hospitalist ICU status. Octreotide was started in the emergency room, thinking that he might have a variceal bleed, since I did not know his history other than cirrhosis. PAST MEDICAL HISTORY: Stroke, depression, portal vein thrombosis, hepatitis C treated, and ongoing alcohol abuse with cirrhosis. Multiple AVMs as detailed above. Chronic diarrhea. SOCIAL HISTORY: He smokes 4 to 5 cigarettes per day. He does drink alcohol despite his best efforts to stop. MEDICATIONS OUTPATIENT HAVE INCLUDED: Omeprazole 40 mg daily. Lasix 80 mg twice a day. Carvedilol 6.25 mg twice a day.. Potassium 20 mEq daily. Iron 325 mg twice a day. ALLERGIES: AMPICILLIN and IV CONTRAST DYE. PHYSICAL EXAMINATION: VITAL SIGNS: Pulse is generally in the 70s. GENERAL: The patient is awake and alert. Sclerae are not grossly icteric. SKIN: His skin does not show significant stigmata of chronic liver disease. LUNGS: Airway is patent. Clear to auscultation. CARDIAC: Regular rate and rhythm with a 2/6 systolic murmur. ABDOMEN: Soft and without gross ascites. There is some mild to moderate tenderness in the left mid and left lower quadrant but no rebound. No mass. EXTREMITIES: With left lower extremity 2+ edema and right 1+ edema with some venous stasis changes of the right lower extremity. The left arm is not edematous but at the wrist and hand there is definitely edema. None in the right hand. LABORATORY STUDIES: Reviewed. Hemoglobin initially was greater than 10. ASSESSMENT AND RECOMMENDATIONS: I am going to plan an esophagogastroduodenoscopy (EGD) even though the recent endoscopies have not shown varices. I simply cannot miss a variceal bleed if it present. I have asked the patient to be started on octreotide empirically. If the esophagogastroduodenoscopy is negative, as it may well be, then I will try an unprepped sigmoidoscopy or colonoscopy if I can manage to get around the colon. I want to try to determine whether there is bleeding only from the rectum or whether the bleeding is coming from higher up in the colon. These procedures will be undertaken tonight. Further recommendations to follow based upon findings at upper gastrointestinal endoscopy and colonoscopy evaluation. Thank you for this consultation. JCM:patrica Job ID: [id number] Doc ID: [id number] Gunnar Mtz PA-C
[2017-12-09] MEDS: 0.9 % SODIUM CHLORIDE 10 ML SYRINGE IV SCH ×3 (06:10→22:13)
[2017-12-09 07:09] LABS: Basophils # (Auto) 0 K/mcL (0.0-0.3); Basophils % (Auto) 0.4 % (0.0-2.0); Eosinophils # (Auto) 0 K/mcL (0.0-0.7); Eosinophils % (Auto) 1.6 % (0.0-7.0); Granulocytes % (Auto) 77.4 % (38.0-78.0); Lymphocytes # (Auto) 0.4 K/mcL (1.5-4.8); Lymphocytes % (Auto) 16.2 % (15.5-49.0); Mean Cell Volume 80.3 fL (80.0-100.0); Mean Corpuscular HGB Conc 32.8 g/dL (31.0-36.0); Mean Corpuscular Hemoglobin 26.3 pg (26.0-34.0); Monocytes # (Auto) 0.1 K/mcL (0.1-0.9); Monocytes % (Auto) 4.4 % (1.0-12.0); Platelet Count 68 K/mcL (140-440); RBC 3.57 M/mcL (4.50-5.90); Red Cell Distribution Width 18.5 % (11.5-14.5)
--- NOTE | 2017-12-09 07:15 | Operative Note ---
DATE OF OPERATION: 12/08/2017 PROCEDURE: Esophagogastroduodenoscopy. WEB SIZER AND ENGINEERING MANAGER: Gunnar Barrera MD ANESTHETIC USED: Propofol 90 mg IV and Versed 1 mg IV. PREOPERATIVE DIAGNOSIS: A 62-year-old white male with a complex history significant for cirrhosis induced by alcohol drinking and hepatitis C, eventually treated for hepatitis C in 2016 with success. He presented to the Emergency Room this afternoon with complaints of left arm pain and chest pain that has been present for about 3 days. Also, however, he had passage of gross bloody bowel movement earlier this morning. I have reviewed most recent upper GI endoscopy report by Dr. Marco Sanchez from 09/2017. Dr. Sanchez found some small AVMs in the stomach, not actively bleeding. He did not have varices at that time. However, I am of course concerned about the possibility of varices given the fact that the patient has cirrhosis and presents with gross rectal bleeding. POSTOPERATIVE DIAGNOSIS: Unremarkable EGD without any evidence of varices or of upper GI bleeding. CONSENT: Prior to the procedure, the patient provided his own informed consent. The patient was evaluated and considered medically fit for endoscopy. DESCRIPTION OF PROCEDURE: With the patient in the left lateral decubitus position, a gastroscope was advanced via the mouth to the esophagus under direct vision. The esophagus appeared normal throughout its length without ulcer, stricture, mass, or any evidence of varices identified. There was no Joycelyn-Diana tear. In the stomach, there was retained fluid which was quite thick, but not at all bloody. I could not suction all the fluid away through the scope because it was too thick. However, a retroflexed view at the stomach did not reveal gastric varices. The antrum was well seen and there were no ulcers there. The duodenum was examined to the third portion and was endoscopically normal. COMPLICATIONS: None immediate. RECOMMENDATIONS AND FOLLOWUP: I am going to proceed to an unprepped flexible sigmoidoscopy tonight just to try to determine if possible whether he is bleeding from the rectum or whether the blood may be coming from higher up in the GI tract. JCM:amy Job ID: [id number] Doc ID: [id number] Gunnar Mtz PA-C
[2017-12-09 07:27] LABS: ALT/SGPT < 5 U/l (0-40); Albumin 3.6 gm/dL (3.2-5.2); Albumin/Globulin Ratio 1.4 (1.0-2.3); Alkaline Phosphatase 77 U/L (39-117); Blood Urea Nitrogen 12 mg/dl (6-20)
[2017-12-09] MEDS ORDERED: PANTOPRAZOLE 40 MG TABLET PO SCH (07:30)
--- NOTE | 2017-12-09 07:54 | Operative Note ---
DATE OF OPERATION: 12/08/2017 PROCEDURE: Colonoscopy with hemostatic clipping. 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 PREOPERATIVE DIAGNOSIS: Gross rectal bleeding. This patient had a colonoscopy by Dr. Guthrie in August 2017 with cauterization of approximately 10 arteriovenous malformations at the right side of the colon. He also removed a polyp or two at that time. The patient then had rectal bleeding with severe anemia and underwent another colonoscopy on 09/30/[address] Marco Sanchez at [facility] and at that time there were no AVMs found at the cecum or right side of the colon. He found a couple of AVMs of the rectum, which he treated with argon plasma coagulation. Today the patient had rectal bleeding at home grossly this morning. He described clots and fresh blood and purplish bloody clots. EGD performed by me immediately prior to this colonoscopy tonight was negative for any bleeding. POSTOPERATIVE DIAGNOSIS: Tonight, a large AVM at the mid transverse colon identified. It was not actively bleeding, but there was a lot of fresh-looking blood around it and wispy clots. I did place two clips on the AVM. CONSENT: Prior to the procedure, the patient provided his own informed consent. The patient was evaluated and considered medically fit for endoscopy. DESCRIPTION OF PROCEDURE: With the patient in the left lateral decubitus position, rectal exam was performed which was remarkable for bloody fluid and mucus. Thereafter, a colonoscope was advanced into the rectum under direct vision. There was no prep but the patient's colon was amazingly clear of almost any stool at all. It was not at all difficult to pass the scope around the entire colon. Throughout the entire colon there was blood and wispy clots and altered blood. It seemed that the freshest-appearing blood was in about the transverse colon in an area near where Dr. Guthrie had left that clip at a polypectomy site. The polypectomy site was not bleeding. About 6 or 7 cm proximal to that was the area where there was more concentrated fresher-looking blood. In any event, I meticulously scoured the colon with a couple of liters of water to irrigate. I went into the terminal ileum and there was absolutely no blood in the terminal ileum. The wall of the cecum and the ascending colon was plastered with a thin film of blood. It was very difficult to scour this blood off the wall of the colon. I used the water jet from the heater probe because it gives a more agitated water flow. I meticulously irrigated and washed and suctioned the right side of the colon for about 20 minutes in total. I went back and forth throughout the whole colon 2 or 3 times. I irrigated on my way out and then went back and forth, back and forth and continued to irrigate and suction. With all this, I found no active arteriovenous malformations. I found no diverticula at all. I did see a 1 cm sessile polyp at the junction of the ascending colon and the cecum. It was not bleeding and I elected not to remove this because it would introduce another potential risk for bleeding, which would be confusing. Eventually after scoping the colon back and forth 3 times, on my final return to the transverse colon in the area where I was suspicious for bleeding I continued to scour and I did eventually find an AVM which was about 8 mm in diameter. It was not actively bleeding and there was no fresh clot on it, but it was only AVM that I was able to find in the entire colon and/or rectum tonight. I went ahead and placed two clips on this AVM. No bleeding was induced. Retroflexed view of the rectum was unremarkable. COMPLICATIONS: None immediate. RECOMMENDATIONS AND FOLLOWUP: I do not believe the patient is actively bleeding now because I simply cannot find an active bleeding site in the colon. There is no blood at all coming from the terminal ileum. The stomach and upper GI tract was normal by endoscopy. I think it is reasonable to continue the octreotide drip which I have started empirically for possible varices. The octreotide may prevent arteriovenous malformation bleeding from the colon. Monitor hemoglobin and hematocrit. I will start a full liquid diet. JCM:amy Job ID: [id number] Doc ID: [id number] Gunnar Mtz PA-C
[2017-12-09] MEDS ORDERED: DEXTROSE 31 GM ORAL.SUSP PO PRN ×2 (08:16→15:11)
[2017-12-09] MEDS ORDERED: DEXTROSE 50% 50 ML VIAL IV PRN ×2 (08:16→15:11)
--- NOTE | 2017-12-09 08:24 | XRay Report ---
CLINICAL INFORMATION: Pain COMPARISON: 03/22/2017. FINDINGS: Ulnar minus noted. There is mild degenerative change in the distal radioulnar, radiocarpal, STT and first CMC joints which have progressed since the comparison study nearly one year ago. There is no osseous abnormality. Mild diffuse soft tissue swelling noted IMPRESSION: Ulnar minus Multilevel degenerative change - progressing Interpreted and Authenticated by: Gunnar Sethi 12/09/17
[2017-12-09] MEDS ORDERED: NICOTINE 7 MG PATCH TOPICAL SCH (10:00)
[2017-12-09] MEDS ORDERED: INSULIN LISPRO 1 UNIT/0.01 ML UNIT SQ SCH (11:30)
[2017-12-09] MEDS ORDERED: OCTREOTIDE ACETATE 500 MCG in 0.9 % SODIUM CHLORIDE 495 ML IV SCH (14:45)
[2017-12-09] MEDS ORDERED: ONDANSETRON 4 MG/2 ML VIAL IV PRN (15:11)
[2017-12-09] MEDS ORDERED: traMADol 50 MG TABLET PO PRN (15:11)
[2017-12-09] MEDS ORDERED: IPRATROPIUM/ALBUTEROL 3 ML AMPUL.NEB NEB PRN (15:11)
[2017-12-09] MEDS ORDERED: ACETAMINOPHEN 325 MG TABLET PO PRN (15:11)
[2017-12-09] MEDS ORDERED: OCTREOTIDE ACETATE 500 MCG in 0.9 % SODIUM CHLORIDE 499.5 ML IV SCH (16:00)
--- NOTE | 2017-12-09 16:21 | Internal Med Progress Note ---
Medical - PN: Subj Patient information: Note initiated : 12/09/17 at 4:19 pm Service Date, if different from initiated Date: [] Patient: Shane Marroquin 62 y/o M admitted on 12/08/17 for Blood In Stool, Left Arm Swelling/GI Bleed. Chief Complaint: f/u GI Bleed Interval history: Dec 08 Patient 62-year-old male with multiple medical problems including cirrhosis secondary to history of alcohol and hepatitis C with a prior history of varices , history of stroke with some left-sided weakness, history of congestive heart failure and coronary disease with multiple stenting's in the past, history of GI bleeds who presents to the ED for couple complaints. Patient states she's been having pain in his left mid chest that goes to the left occasionally for the last 4 days since Tuesday. It awoke him from sleep, it 's fairly constant. It's waxed and waned from minimal up to 7/10 in intensity. It gets worse when he takes a deep breath or coughs forcefully. It does not radiate to the neck or jaw. He's having some pain in his left arm, however that appears to be related to his left wrist which he injured while pushing off on Tuesday getting up from a chair and subsequently developed swelling. In addition this morning he was collecting his stool sample because he been having ongoing diarrhea. When he defecated in the had passed purple clots. Because of the chest pain and blood per rectum he presents to the ED. The ED, he is being worked up for his chest pain. He subsequently developed bright red blood per rectum. He had liquid bloody stool on rectal exam. Given his history of cirrhosis, there is concern for variceal bleeding. He was started on octreotide. Dr. Barrera from gastroenterology was contacted, and I was asked to see the patient for admission. Dec 09 The patient has been stable overnight. No further bloody bowel movements. His abdomen feels a bit distended, though he did have significant time in the endoscopy suite undergoing colonoscopy yesterday. Appetite is okay, tolerating clears. Had a long discussion about the patient's significant pulmonary hypertension. Records from [place] were reviewed, I reviewed the findings with the patient. He recalls seeing palliative care, and chosen a DO NOT RESUSCITATE CODE STATUS at that time given his very advanced and severe pulmonary hypertension. Since he is reestablished in the area, he has been feeling better , thus requested full code at the time of admission. I discussed the likelihood of futility if he were to develop cardiac arrest given his profound right heart failure. After this discussion, he is chosen DO NOT RESUSCITATE again. - Constitutional Vitals: Vital Signs Temp Pulse Resp BP Pulse Ox 98.7 F 80 17 139/69 96 12/09/17 12:01 12/09/17 10:00 12/09/17 12:01 12/09/17 12:01 12/09/17 10:00 Period Temp Pulse Resp BP Sys/Carlson Pulse Ox Last 24 Hr 97.6 F-98.7 F 76-93 12-24 127-168/62-107 91-100 Intake and Output 12/09/17 12/09/17 12/09/17 05:59 13:59 21:59 Intake Total 690 / 690 Output Total 350 / 350 Balance 340 / 340 Weight 185 lb Patient Weight 12/10/17 05:59 Weight 185 lb Intake & Output: Intake & Output 12/09/17 12/09/17 12/09/17 05:59 13:59 21:59 Intake Total 690 / 690 Output Total 350 / 350 Balance 340 / 340 Weight 185 lb Intake: Oral 690 / 690 Output: Void Amount 350 / 350 Other: Meal Nourishment/Supplement Percent of Meal Consumed 100% # Voids 1 Exam: General: Sitting up in chair, no acute distress Chest: Few basilar crackles, otherwise clear Cardiovascular: Regular, prominent S2, trace edema, left greater than right Abdomen: Soft, nontender, active bowel sounds throughout Musculoskeletal: Swelling around the left wrist. Neuro: Alert, oriented 3, speech is stronger today. Strength appears symmetric Medical - PN: Obj Da - Labs CBC & Chem 7: 12/09/17 12:00 12/09/17 04:08 Labs: Abnormal Lab Results 12/09/17 12/09/17 12/09/17 12:00 08:07 04:08 WBC RBC Hgb 9.8 L 9.5 L Hct 29.8 L 29.1 L POC Hct RDW Plt Count Lymph % (Auto) Lymph # (Auto) PT INR POC Potassium Potassium Carbon Dioxide 20 L Glucose 208 H POC Glucose Calcium 8.3 L POC WB Ioniz Calcium Total Bilirubin NT-Pro-B Natriuret Pep Urine Occult Blood Urine RBC 12/09/17 12/08/17 12/08/17 04:08 23:03 14:38 WBC 2.6 L RBC 3.57 L Hgb 9.4 L 9.5 L Hct 28.6 L 29.2 L POC Hct RDW 18.5 H Plt Count 68 L Lymph % (Auto) Lymph # (Auto) 0.4 L PT INR POC Potassium Potassium Carbon Dioxide Glucose POC Glucose Calcium POC WB Ioniz Calcium Total Bilirubin NT-Pro-B Natriuret Pep Urine Occult Blood 0.03 A Urine RBC 3 H 12/08/17 12/08/17 12/08/17 14:16 14:16 14:16 WBC RBC 3.92 L Hgb 10.3 L Hct 31.4 L POC Hct 33.0 L RDW 18.8 H Plt Count 78 L Lymph % (Auto) 12.7 L Lymph # (Auto) 0.7 L PT 15.3 H INR 1.2 H POC Potassium 2.6 L* Potassium 2.8 L* Carbon Dioxide Glucose 142 H POC Glucose 145 H Calcium POC WB Ioniz Calcium 1.13 L Total Bilirubin 1.3 H NT-Pro-B Natriuret Pep 5310.0 H Urine Occult Blood Urine RBC Meds: Medications Acetaminophen (Tylenol) 650 mg PO Q4-6HP PRN PRN Reason: PAIN/FEVER > 101 Albuterol/Ipratropium (Duoneb) 3 ml NEB Q4HP PRN PRN Reason: Shortness Of Breath Carvedilol (Coreg) 6.25 mg PO BIDCC MARY LOU Dextrose (Dextrose 50%) 0 ml IV UD PRN PRN Reason: Hypoglycemia Diagnostic Test (Pha) (Accu-Chek) 1 each FS ACHS MARY LOU Fluticasone Propionate (Flovent Hfa 220mcg) 1 puff INH BID MARY LOU Furosemide (Lasix) 80 mg PO BID MARY LOU Glucose (Insta-Glucose) 15 gm PO PRN PRN PRN Reason: Hypoglycemia Octreotide Acetate 500 mcg/ (Sodium Chloride) 500 mls @ 25 mls/hr IV Q20H MARY LOU; 25 MCG/HR PRN Reason: Protocol Imipramine HCl (Tofranil) 25 mg PO QHS MARY LOU Insulin Human Lispro (Humalog) 0 unit SQ ACHS MARY LOU PRN Reason: Protocol Lisinopril (Zestril) 10 mg PO BID MARY LOU Mirtazapine (Remeron) 15 mg PO QHS [facility] Nicotine (Nicoderm) 7 mg TOPICAL DAILY@1000 [facility] Ondansetron HCl (Zofran) 4 mg IV Q4-6HP PRN PRN Reason: Nausea And Vomiting Oxycodone HCl (Roxicodone) 5 mg PO Q4HP PRN PRN Reason: PAIN LEVEL 3-6 Pantoprazole Sodium (Protonix) 40 mg PO QAMAC [facility] Ambrisentan [ (Letairis] 10 Mg Tab) 1 dose PO DAILY [facility] Sodium Chloride (Saline Flush) 10 ml IV Q8 [facility] Tiotropium [place] (Spiriva) 18 mcg INH QDAY [facility] Tramadol HCl (Ultram) 50 mg PO QHS PRN PRN Reason: Pain - Impressions Left wrist FINDINGS: Ulnar minus noted. There is mild degenerative change in the distal radioulnar, radiocarpal, STT and first CMC joints which have progressed since the comparison study nearly one year ago. There is no osseous abnormality. Mild diffuse soft tissue swelling noted IMPRESSION: -Ulnar minus -Multilevel degenerative change - progressing Medical - PN: A/P - Time Spent With Patient Total time spent is greater than 50% in coordination of care (as documented) at patient's floor/unit and/or counseling patient: (1) Lower gastrointestinal hemorrhage Status: Acute Current Visit: Yes (2) Chest pain Status: Acute Current Visit: Yes (3) Hypokalemia Status: Acute Current Visit: Yes (4) CAD (coronary artery disease) Problem details: Pt. denies a history of PR Status: Chronic Current Visit: No - Narrative A/P Narrative: 62-year-old male with multiple medical problems including severe pulmonary hypertension, congestive heart failure, COPD, cirrhosis with portal hypertension and partial portal vein thrombosis presents with bloody bowel movements as well as left-sided chest pain. GI bleed. Colonoscopy and EGD with only source of bleeding being AVM in the transverse colon. Patient has history of multiple AVMs with colonic bleed sinces August. Hemoglobins remained stable, no further blood loss. Remains on octreotide. Plan: Downgraded to telemetry status, continue octreotide, continue trend hemoglobins, continue full liquid diet Cirrhosis with portal hypertension. Currently does not appear to be decompensated. No evidence of varices on EGD this evening. Plan: Monitor, resuming diuretics. Hypokalemia. Possibly from GI loss, has had diarrhea for the last month or so. Plan: Replete Severe pulmonary hypertension. At risk for respiratory failure, particularly with fluid shifts. Will need to be cautious if he needs any blood products. Stable. Plan: Resumed pulmonary hypertension meds History of pulmonary embolism. Also has partial portal vein thrombosis. However at high risk for rebleeding. Anticoagulation is contraindicated. He was not on anticoagulants prior to his presentation to [facility]. Plan: SCDs for DVT prophylaxis Type 2 diabetes mellitus. Plan: Accu-Cheks, sliding scale insulin. Left wrist pain, injury as he slipped pushing off from a chair. No fracture on X-ray Plan: Pain control Chest pain. Ongoing and constant since Tuesday. Troponin negative. EKG unremarkable. Suspect noncardiac. Plan: Monitor Renal artery stenosis. Noted on CT angiogram of the abdomen today. Given the patient's multiple comorbidities, he may not be a candidate for intervention. Plan: Monitor Prophylaxis: PPI, SCDs. CODE STATUS: After further review of his medical record, have rediscuss CODE STATUS and reflected on the discussions had with palliative care in [facility]. He has changed his CODE STATUS to DO NOT RESUSCITATE. Medical - PN: Qual - VTE Deep Vein Thrombosis/Pulmonary Embolism Present on Admission: No
[2017-12-09] MEDS: CARVEDILOL 6.25 MG TABLET PO SCH (17:11)
[2017-12-09] MEDS: INSULIN LISPRO 1 UNIT/0.01 ML UNIT SQ SCH ×2 (17:25→22:12)
[2017-12-09] MEDS: MIRTAZAPINE 15 MG TABLET PO SCH (22:12)
[2017-12-09] MEDS: LISINOPRIL 10 MG TABLET PO SCH (22:12)
[2017-12-09] MEDS: FUROSEMIDE 80 MG TABLET PO SCH (22:12)
[2017-12-09] MEDS: FLUTICASONE HFA 220MCG INHALER INH SCH (22:13)
[2017-12-09] MEDS: IMIPRAMINE 25 MG TABLET PO SCH (22:17)
[2017-12-10] MEDS: 0.9 % SODIUM CHLORIDE 10 ML SYRINGE IV SCH ×3 (05:52→22:33)
[2017-12-10 05:56] LABS: Basophils # (Auto) 0 K/mcL (0.0-0.3); Basophils % (Auto) 0.3 % (0.0-2.0); Eosinophils # (Auto) 0.1 K/mcL (0.0-0.7); Eosinophils % (Auto) 2.7 % (0.0-7.0); Granulocytes % (Auto) 68.5 % (38.0-78.0); Lymphocytes # (Auto) 0.9 K/mcL (1.5-4.8); Lymphocytes % (Auto) 19.1 % (15.5-49.0); Mean Cell Volume 80.8 fL (80.0-100.0); Mean Corpuscular HGB Conc 32.3 g/dL (31.0-36.0); Mean Corpuscular Hemoglobin 26.1 pg (26.0-34.0); Monocytes # (Auto) 0.4 K/mcL (0.1-0.9); Monocytes % (Auto) 9.4 % (1.0-12.0); Platelet Count 66 K/mcL (140-440)
[2017-12-10 06:11] LABS: ALT/SGPT < 5 U/l (0-40); Albumin 3.7 gm/dL (3.2-5.2); Albumin/Globulin Ratio 1.5 (1.0-2.3); Alkaline Phosphatase 75 U/L (39-117); Blood Urea Nitrogen 12 mg/dl (6-20)
[2017-12-10] MEDS: LISINOPRIL 10 MG TABLET PO SCH ×3 (08:24→20:57)
[2017-12-10] MEDS: FLUTICASONE HFA 220MCG INHALER INH SCH ×2 (08:24→20:47)
[2017-12-10] MEDS: FUROSEMIDE 80 MG TABLET PO SCH ×2 (08:24→20:51)
[2017-12-10] MEDS: CARVEDILOL 6.25 MG TABLET PO SCH ×2 (08:24→17:34)
[2017-12-10] MEDS: PANTOPRAZOLE 40 MG TABLET PO SCH (08:25)
[2017-12-10] MEDS: TIOTROPIUM BROMIDE 18 MCG INHALANT INH SCH (08:25)
[2017-12-10] MEDS: INSULIN LISPRO 1 UNIT/0.01 ML UNIT SQ SCH ×4 (08:30→20:46)
[2017-12-10] MEDS: oxyCODONE HCL 5 MG TABLET PO PRN ×2 (10:38→20:56)
--- NOTE | 2017-12-10 13:38 | Internal Med Progress Note ---
Medical - PN: Subj Patient information: Note initiated : 12/10/17 at 1:34 pm Service Date, if different from initiated Date: [] Patient: Shane Marroqiun 62 y/o M admitted on 12/08/17 for Blood In Stool, Left Arm Swelling/GI Bleed. Chief Complaint: f/u GI Bleed Interval history: Dec 08 Patient 62-year-old male with multiple medical problems including cirrhosis secondary to history of alcohol and hepatitis C with a prior history of varices , history of stroke with some left-sided weakness, history of congestive heart failure and coronary disease with multiple stenting's in the past, history of GI bleeds who presents to the ED for couple complaints. Patient states she's been having pain in his left mid chest that goes to the left occasionally for the last 4 days since Tuesday. It awoke him from sleep, it 's fairly constant. It's waxed and waned from minimal up to 7/10 in intensity. It gets worse when he takes a deep breath or coughs forcefully. It does not radiate to the neck or jaw. He's having some pain in his left arm, however that appears to be related to his left wrist which he injured while pushing off on Tuesday getting up from a chair and subsequently developed swelling. In addition this morning he was collecting his stool sample because he been having ongoing diarrhea. When he defecated in the had passed purple clots. Because of the chest pain and blood per rectum he presents to the ED. The ED, he is being worked up for his chest pain. He subsequently developed bright red blood per rectum. He had liquid bloody stool on rectal exam. Given his history of cirrhosis, there is concern for variceal bleeding. He was started on octreotide. Dr. Barrera from gastroenterology was contacted, and I was asked to see the patient for admission. Dec 09 The patient has been stable overnight. No further bloody bowel movements. His abdomen feels a bit distended, though he did have significant time in the endoscopy suite undergoing colonoscopy yesterday. Appetite is okay, tolerating clears. Had a long discussion about the patient's significant pulmonary hypertension. Records from [place] were reviewed, I reviewed the findings with the patient. He recalls seeing palliative care, and chosen a DO NOT RESUSCITATE CODE STATUS at that time given his very advanced and severe pulmonary hypertension. Since he is reestablished in the area, he has been feeling better , thus requested full code at the time of admission. I discussed the likelihood of futility if he were to develop cardiac arrest given his profound right heart failure. After this discussion, he is chosen DO NOT RESUSCITATE again. Every 17 No new complaints. Had a looser bowel movement (chronic) without blood. No dyspnea. Pain in wrist about the same. Tolerating full liquid diet. - Constitutional Vitals: Vital Signs Temp Pulse Resp BP Pulse Ox 98.9 F 75 18 122/72 92 12/10/17 11:53 12/10/17 08:00 12/10/17 11:53 12/10/17 11:53 12/10/17 11:53 Period Temp Pulse Resp BP Sys/Carlson Pulse Ox Last 24 Hr 98.0 F-98.9 F 70-84 15-20 122-148/72-103 92-100 Intake and Output 12/09/17 12/10/17 12/10/17 21:59 05:59 13:59 Intake Total 1180 / 1180 420 / 420 1010 / 1010 Output Total 275 / 275 350 / 350 1850 / 1850 Balance 905 / 905 70 / 70 -840 / -840 Weight 184 lb Intake & Output: Intake & Output 12/09/17 12/10/17 12/10/17 21:59 05:59 13:59 Intake Total 1180 / 1180 420 / 420 1010 / 1010 Output Total 275 / 275 350 / 350 1850 / 1850 Balance 905 / 905 70 / 70 -840 / -840 Weight 184 lb Intake: IV 500 / 500 Oral 680 / 680 420 / 420 1010 / 1010 Output: Void Amount 275 / 275 350 / 350 1850 / 1850 Other: Meal Lunch Breakfast Percent of Meal Consumed 100% 100% Feeding Ability Independent # Voids 1 1 Exam: General: Mood appears a bit down, in no distress Chest: Clear, no rales Cardiovascular: Regular with murmur unchanged. Trace left lower extremity edema. Abdomen: Soft, nontender, normal bowel sounds present. Neuro: Alert, oriented to person place and situation. Mood a bit blue. Medical - PN: Obj Da - Labs CBC & Chem 7: 12/10/17 10:15 12/10/17 03:32 Labs: Abnormal Lab Results 12/10/17 12/10/17 12/10/17 10:15 03:32 03:32 WBC RBC 3.30 L Hgb 9.2 L 8.6 L Hct 28.5 L 26.6 L POC Hct RDW 19.0 H Plt Count 66 L Lymph % (Auto) Lymph # (Auto) 0.9 L PT INR POC Potassium Potassium 3.2 L Carbon Dioxide Glucose POC Glucose Calcium 8.4 L POC WB Ioniz Calcium Total Bilirubin NT-Pro-B Natriuret Pep Urine Occult Blood Urine RBC 12/09/17 12/09/17 12/09/17 20:00 16:36 12:00 WBC RBC Hgb 9.1 L 9.8 L 9.8 L Hct 28.3 L 30.8 L 29.8 L POC Hct RDW Plt Count Lymph % (Auto) Lymph # (Auto) PT INR POC Potassium Potassium Carbon Dioxide Glucose POC Glucose Calcium POC WB Ioniz Calcium Total Bilirubin NT-Pro-B Natriuret Pep Urine Occult Blood Urine RBC 12/09/17 12/09/17 12/09/17 08:07 04:08 04:08 WBC 2.6 L RBC 3.57 L Hgb 9.5 L 9.4 L Hct 29.1 L 28.6 L POC Hct RDW 18.5 H Plt Count 68 L Lymph % (Auto) Lymph # (Auto) 0.4 L PT INR POC Potassium Potassium Carbon Dioxide 20 L Glucose 208 H POC Glucose Calcium 8.3 L POC WB Ioniz Calcium Total Bilirubin NT-Pro-B Natriuret Pep Urine Occult Blood Urine RBC 12/08/17 12/08/17 12/08/17 23:03 14:38 14:16 WBC RBC Hgb 9.5 L Hct 29.2 L POC Hct RDW Plt Count Lymph % (Auto) Lymph # (Auto) PT 15.3 H INR 1.2 H POC Potassium Potassium Carbon Dioxide Glucose POC Glucose Calcium POC WB Ioniz Calcium Total Bilirubin NT-Pro-B Natriuret Pep Urine Occult Blood 0.03 A Urine RBC 3 H 12/08/17 12/08/17 14:16 14:16 WBC RBC 3.92 L Hgb 10.3 L Hct 31.4 L POC Hct 33.0 L RDW 18.8 H Plt Count 78 L Lymph % (Auto) 12.7 L Lymph # (Auto) 0.7 L PT INR POC Potassium 2.6 L* Potassium 2.8 L* Carbon Dioxide Glucose 142 H POC Glucose 145 H Calcium POC WB Ioniz Calcium 1.13 L Total Bilirubin 1.3 H NT-Pro-B Natriuret Pep 5310.0 H Urine Occult Blood Urine RBC Meds: Medications Acetaminophen (Tylenol) 650 mg PO Q4-6HP PRN PRN Reason: PAIN/FEVER > 101 Albuterol/Ipratropium (Duoneb) 3 ml NEB Q4HP PRN PRN Reason: Shortness Of Breath [facility] ([facility]g) [facility] Last Admin: 12/10/17 08:24 Dose: 6.25 mg Dextrose (Dextrose 50%) 0 ml IV UD PRN PRN Reason: Hypoglycemia Diagnostic Test (Pha) (Accu-Chek) 1 each FS [facility] Last Admin: 12/10/17 08:29 Dose: 1 each Fluticasone Propionate (Flovent Hfa 220mcg) 1 puff INH [facility]ID [facility] Last Admin: 12/10/17 08:24 Dose: Not Given Furosemide (Lasix) 80 mg PO BID [facility] Last Admin: 12/10/17 08:24 Dose: 80 mg Glucose (Insta-Glucose) 15 gm PO PRN PRN PRN Reason: Hypoglycemia Imipramine HCl (Tofranil) 25 mg PO QHS [facility] Last Admin: 12/09/17 22:17 Dose: 25 mg Insulin Human Lispro (Humalog) 0 unit SQ [facility] PRN Reason: Protocol Last Admin: 12/10/17 08:30 Dose: Not Given Lisinopril (Zestril) 10 mg PO BID [facility] Last Admin: 12/10/17 08:40 Dose: Not Given Mirtazapine (Remeron) 15 mg PO QHS [facility] Last Admin: 12/09/17 22:12 Dose: 15 mg Nicotine (Nicoderm) 7 mg TOPICAL DAILY@1000 [facility] Ondansetron HCl (Zofran) 4 mg IV Q4-6HP PRN PRN Reason: Nausea And Vomiting Last Admin: 12/09/17 22:12 Dose: 4 mg Oxycodone HCl (Roxicodone) 5 mg PO Q4HP PRN PRN Reason: PAIN LEVEL 3-6 Last Admin: 12/10/17 10:38 Dose: 5 mg Pantoprazole Sodium (Protonix) 40 mg PO QAMAC [facility] Last Admin: 12/10/17 08:25 Dose: 40 mg Ambrisentan [ (Letairis] 10 Mg Tab) 1 dose PO DAILY [facility] Last Admin: 12/10/17 08:25 Dose: Not Given Sodium Chloride (Saline Flush) 10 ml IV Q8 [facility] Last Admin: 12/10/17 05:52 Dose: 10 ml Tiotropium Rover (Spiriva) 18 mcg INH QDAY [facility] Last Admin: 12/10/17 08:25 Dose: Not Given Tramadol HCl (Ultram) 50 mg PO QHS PRN PRN Reason: Pain Medical - PN: A/P - Time Spent With Patient Total time spent is greater than 50% in coordination of care (as documented) at patient's floor/unit and/or counseling patient: 25 - 35 minutes (1) Lower gastrointestinal hemorrhage Status: Acute Current Visit: Yes (2) Chest pain Status: Acute Current Visit: Yes (3) Hypokalemia Status: Acute Current Visit: Yes (4) CAD (coronary artery disease) Problem details: Pt. denies a history of CT Status: Chronic Current Visit: No - Narrative A/P Narrative: 62-year-old male with multiple medical problems including severe pulmonary hypertension, congestive heart failure, COPD, cirrhosis with portal hypertension and partial portal vein thrombosis presents with bloody bowel movements as well as left-sided chest pain. GI bleed. Colonoscopy and EGD with only source of bleeding being AVM in the transverse colon. Patient has history of multiple AVMs with colonic bleed since August. Hemoglobin remains stable Tuesday. Finishing octreotide (to help prevent AMV re-bleed). Plan: Stop octreotide and monitor; continue tele, trend hemoglobins, continue full liquid diet, though can likely advance soon to soft diet. Cirrhosis with portal hypertension. Currently does not appear to be decompensated. No evidence of varices on EGD at admission. Plan: Monitor, resumed diuretics. Hypokalemia. Possibly from GI loss, has had diarrhea for the last month or so. Plan: Replete Severe pulmonary hypertension. At risk for respiratory failure, particularly with fluid shifts. Will need to be cautious if he needs any blood products. Stable. Plan: Resumed pulmonary hypertension meds History of pulmonary embolism. Also has partial portal vein thrombosis. However at high risk for rebleeding. Anticoagulation is contraindicated. He was not on anticoagulants prior to his presentation to [facility]. Plan: SCDs for DVT prophylaxis Type 2 diabetes mellitus. Plan: Accu-Cheks, sliding scale insulin. Left wrist pain, injury as he slipped pushing off from a chair. No fracture on X-ray Plan: Pain control Chest pain. Ongoing and constant since Tuesday. Troponin negative. EKG unremarkable. Suspect noncardiac. Plan: Monitor Renal artery stenosis. Noted on CT angiogram of the abdomen today. Given the patient's multiple comorbidities, he may not be a candidate for intervention. Plan: Monitor Prophylaxis: PPI, SCDs. CODE STATUS: After further review of his medical record, have rediscuss CODE STATUS and reflected on the discussions had with palliative care in [facility]. He has changed his CODE STATUS to DO NOT RESUSCITATE. Medical - PN: Qual - VTE Deep Vein Thrombosis/Pulmonary Embolism Present on Admission: No
[2017-12-10] MEDS: NICOTINE 7 MG PATCH TOPICAL SCH (13:46)
[2017-12-10] MEDS ORDERED: LORazepam 1 MG TABLET PO PRN (16:54)
[2017-12-10] MEDS: MIRTAZAPINE 15 MG TABLET PO SCH (20:56)
[2017-12-10] MEDS: IMIPRAMINE 25 MG TABLET PO SCH (20:59)
[2017-12-11 05:06] LABS: Basophils # (Auto) 0 K/mcL (0.0-0.3); Basophils % (Auto) 0.5 % (0.0-2.0); Eosinophils # (Auto) 0.1 K/mcL (0.0-0.7); Eosinophils % (Auto) 3.4 % (0.0-7.0); Lymphocytes # (Auto) 0.9 K/mcL (1.5-4.8); Lymphocytes % (Auto) 27.5 % (15.5-49.0); Mean Cell Volume 80.6 fL (80.0-100.0); Mean Corpuscular HGB Conc 32.1 g/dL (31.0-36.0); Mean Corpuscular Hemoglobin 25.9 pg (26.0-34.0); Monocytes # (Auto) 0.4 K/mcL (0.1-0.9); Monocytes % (Auto) 11.6 % (1.0-12.0); Platelet Count 65 K/mcL (140-440); RBC 3.35 M/mcL (4.50-5.90)
[2017-12-11 05:10] LABS: ALT/SGPT 5 U/l (0-40); Albumin 3.2 gm/dL (3.2-5.2); Albumin/Globulin Ratio 1.2 (1.0-2.3); Alkaline Phosphatase 77 U/L (39-117); Blood Urea Nitrogen 12 mg/dl (6-20)
[2017-12-11] MEDS: 0.9 % SODIUM CHLORIDE 10 ML SYRINGE IV SCH (06:03)
[2017-12-11] MEDS ORDERED: POTASSIUM CHLORIDE 20 MEQ PACKET PO ONE (07:25)
[2017-12-11] MEDS ORDERED: POTASSIUM CHLORIDE 20 MEQ TABLET PO SCH (08:00)
[2017-12-11] MEDS: INSULIN LISPRO 1 UNIT/0.01 ML UNIT SQ SCH (08:28)
[2017-12-11] MEDS: CARVEDILOL 6.25 MG TABLET PO SCH (08:34)
[2017-12-11] MEDS: PANTOPRAZOLE 40 MG TABLET PO SCH (08:34)
[2017-12-11] MEDS: FUROSEMIDE 80 MG TABLET PO SCH (08:34)
[2017-12-11] MEDS: FLUTICASONE HFA 220MCG INHALER INH SCH (08:35)
[2017-12-11] MEDS: TIOTROPIUM BROMIDE 18 MCG INHALANT INH SCH (08:35)
[2017-12-11] MEDS ORDERED: Tadalafil [Adcirca] 20 MG Tablet PO SCH (09:00)
[2017-12-11] MEDS ORDERED: ASCORBIC ACID 500 MG TABLET PO SCH (09:00)
[2017-12-11] MEDS ORDERED: aMILoride 5 MG TABLET PO SCH (09:00)
--- NOTE | 2017-12-11 11:32 | Discharge Summary ---
Medical - DS: Prov Patient information: Note initiated : 12/11/17 at 11:30 am Service Date, if different from initiated Date: [] Patient: Shane Marroquin 62 y/o M admitted on 12/08/17 for Blood In Stool, Left Arm Swelling/GI Bleed. Date of admission: 12/08/17 21:23 Discharge date: 12/11/17 Primary care physician: Luis Mtz Admitting clinician: Kasey Coffey Consults: 12/08/17 18:42 Consult to Physician [CONS] Stat Comment: Consulting Provider: Gunnar Barrera Reason For Exam: Physician to Consult 12/08/17 18:47 Consult to Physician [CONS] Stat Comment: Consulting Provider: Kasey Coffey Reason For Exam: Physician to Consult Discharging clinician: Kasey Coffey Medical - DS: Meds - Discharge Medications Active and Home Medications: Home Medications mirtazapine 15 mg tablet 45 mg PO QHS 09/28/16 [History Confirmed 12/10/17 Last Taken Unknown] nebulizer + accessories unit 08/02/17 [History Confirmed 10/11/17 Last Taken Unknown] nicotine 7 mg/24 hr daily transdermal patch 1 patch TRANSDERMA Q24H #14 each 12/10 [Rx Confirmed 12/10/17 Last Taken Unknown] ipratropium-albuterol 0.5 mg-3 mg(2.5 mg base)/3 mL nebulization soln 3 ml INHALATION Q2-4H PRN 08/31/17 [History Confirmed 12/09/17 Last Taken Unknown] lisinopril 10 mg tablet 10 mg PO HS tab 08/31/17 [History Confirmed 12/10/17 Last Taken Unknown] amiloride 5 mg tablet 5 mg PO QDAY 09/01/17 [History Confirmed 12/10/17 Last Taken Unknown] ascorbic acid (vitamin C) 1,000 mg tablet 1 g PO QDAY tab 09/01/17 [History Confirmed 12/10/17 Last Taken Unknown] fluticasone 220 mcg/actuation HFA aerosol inhaler 1 puff INHALATION BID [History Confirmed 12/09/17 Last Taken 12/06/17] ondansetron 4 mg disintegrating tablet 4 mg PO Q4H 09/01/17 [History Confirmed 12/09/17 Last Taken Unknown] tadalafil 20 mg tablet 40 mg PO QDAY tab 09/01/17 [History Confirmed 12/10/17 Last Taken Unknown] tiotropium bromide 18 mcg capsule with inhalation device 1 cap INHALATION QDAY 09/01/17 [History Confirmed 12/09/17 Last Taken 12/06/17] carvedilol 3.125 mg tablet 6.25 mg PO BID tab 09/21/17 [History Confirmed 12/09 Last Taken 12/06/17] furosemide 80 mg tablet 80 mg PO BID tab 09/21/17 [History Confirmed 12/09/17 Last Taken 12/06/17] potassium chloride ER 20 mEq tablet,extended release 20 meq PO QDAY 30 Days #30 tab 09/21/17 [Rx Confirmed 12/10/17 Last Taken Unknown] pantoprazole 40 mg tablet,delayed release 40 mg PO QAM #30 tab 11/10/17 [Rx Confirmed 12/09/17 Last Taken 12/06/17] Medical - DS: Hosp Hospital course: In summary: Patient 6 62-year-old male with medical problems as noted below including cirrhosis and portal hypertension, left ventricle systolic function, advanced/endstage right heart failure with severe pulmonary hypertension, recurrent GI bleeds since August. He presented with hematochezia as well as chest pain. Chest pain was noncardiac, consistent with chest wall pain he continued to have hematochezia in the emergency department. He went to endoscopy. No evidence of varices on upper endoscopy. Lower endoscopy showed blood throughout the colon, no blood in the terminal ileum. After much evaluation by Dr. Barrera, only apparent source of bleeding was an AVM in the transverse colon, which was clipped. He's had previous AVMs cauterized in the right colon in August, had lower GI bleed from AVMs in the rectum in September. He remained on octreotide for treatment of AVM bleed, potentially given the recurrent nature. He had no further bloody bowel movements. His hemoglobin stabilized in the mid 9 range though it did bounce around from draw to drop. He tolerated full liquid diet. Patient is also complaining of left wrist swelling. He had slipped getting up from a chair and twisted his wrist. No evidence of fracture on radiograph. He is treated for wrist sprain. Dec 08 Patient 62-year-old male with multiple medical problems including cirrhosis secondary to history of alcohol and hepatitis C with a prior history of varices , history of stroke with some left-sided weakness, history of congestive heart failure and coronary disease with multiple stenting's in the past, history of GI bleeds who presents to the ED for couple complaints. Patient states she's been having pain in his left mid chest that goes to the left occasionally for the last 4 days since Tuesday. It awoke him from sleep, it 's fairly constant. It's waxed and waned from minimal up to 7/10 in intensity. It gets worse when he takes a deep breath or coughs forcefully. It does not radiate to the neck or jaw. He's having some pain in his left arm, however that appears to be related to his left wrist which he injured while pushing off on Tuesday getting up from a chair and subsequently developed swelling. In addition this morning he was collecting his stool sample because he been having ongoing diarrhea. When he defecated in the had passed purple clots. Because of the chest pain and blood per rectum he presents to the ED. The ED, he is being worked up for his chest pain. He subsequently developed bright red blood per rectum. He had liquid bloody stool on rectal exam. Given his history of cirrhosis, there is concern for variceal bleeding. He was started on octreotide. Dr. Barrera from gastroenterology was contacted, and I was asked to see the patient for admission. Endoscopies showed no varices and an AVM in the transverse colon was identified and clipped. Please see operative reports below. Dec 09 The patient has been stable overnight. No further bloody bowel movements. His abdomen feels a bit distended, though he did have significant time in the endoscopy suite undergoing colonoscopy yesterday. Appetite is okay, tolerating clears. Had a long discussion about the patient's significant pulmonary hypertension. Records from [place] were reviewed, I reviewed the findings with the patient. He recalls seeing palliative care, and chosen a DO NOT RESUSCITATE CODE STATUS at that time given his very advanced and severe pulmonary hypertension. Since he is reestablished in the area, he has been feeling better , thus requested full code at the time of admission. I discussed the likelihood of futility if he were to develop cardiac arrest given his profound right heart failure. After this discussion, he is chosen DO NOT RESUSCITATE again. Every No new complaints. Had a looser bowel movement (chronic) without blood. No dyspnea. Pain in wrist about the same. Tolerating full liquid diet. Dec 11 Remains stable, no further BRBPR; mild dyspnea stable. Tolerating full liquids. Hb stable in 9 range. Discharge diagnosis: Lower GI bleed from AVM Secondary discharge diagnosis: Left wrist sprain Chest pain, non-cardiac Severe pulmonary hypertension LV systolic CHF Cirrhosis with portal hypertension, no varices on EGD Type 2 DM, diet controlled Cerebrovascular disease with history of CVA - Time Spent with Patient Total time spent providing and/or coordinating discharge services: Greater than 30 minutes Medical - DS: Exam - Constitutional Vitals: Vital Signs Temp Pulse Resp BP BP Pulse Ox 12/11/17 08:00 98.6 F 16 121/69 92 12/11/17 04:00 74 20 120/64 92 12/11/17 00:00 60 20 95 12/10/17 20:00 98.2 F 68 20 94 12/10/17 15:35 98.8 F 18 127/72 95 12/10/17 11:53 98.9 F 18 122/72 92 Intake and Output 12/10/17 12/11/17 12/11/17 21:59 05:59 13:59 Intake Total 660 / 660 240 / 240 650 / 650 Balance 660 / 660 240 / 240 650 / 650 Intake: Oral 660 / 660 240 / 240 650 / 650 Other: Meal Breakfast Percent of Meal Consumed 75% # Voids 1 Weight 184 lb General appearance: no acute distress - Head Head exam: Present: normal inspection - Eye Eye exam: Present: normal appearance. Absent: scleral icterus - ENT ENT exam: Present: mucous membranes moist - Neck Neck exam: Present: full ROM - Respiratory Respiratory exam: Present: rales (few basal rales, cleared with deep inspiration ). Absent: respiratory distress, wheezes - Cardiovascular Cardiovascular exam: Present: normal rate and rhythm, systolic murmur - GI/Abdominal GI/Abdominal exam: Present: normal bowel sounds, soft. Absent: distended, guarding, rebound, tenderness - Extremities Exam Extremities exam: Present: neurovascular intact. Absent: pedal edema - Neurological Exam Neurological exam: Present: alert, oriented X3 Medical - DS: Data Procedures and tests throughout hospitalization: DATE OF OPERATION: 12/08/2017 PROCEDURE: Esophagogastroduodenoscopy. [employer] ASSOCIATE: Gunnar Barrera MD PREOPERATIVE DIAGNOSIS: A 62-year-old white male with a complex history significant for cirrhosis induced by alcohol drinking and hepatitis C, eventually treated for hepatitis C in 2016 with success. He presented to the Emergency Room this afternoon with complaints of left arm pain and chest pain that has been present for about 3 days. Also, however, he had passage of gross bloody bowel movement earlier this morning. I have reviewed most recent upper GI endoscopy report by Dr. Marco Sanchez from 09/2017. Dr. Sanchez found some small AVMs in the stomach, not actively bleeding. He did not have varices at that time. However, I am of course concerned about the possibility of varices given the fact that the patient has cirrhosis and presents with gross rectal bleeding. POSTOPERATIVE DIAGNOSIS: Unremarkable EGD without any evidence of varices or of upper GI bleeding. DATE OF OPERATION: 12/08/2017 PROCEDURE: Colonoscopy with hemostatic clipping. [employer] COMP[employer] ASSOCIATE: Gunnar Barrera MD PREOPERATIVE DIAGNOSIS: Gross rectal bleeding. This patient had a colonoscopy by Dr. Guthrie in August 2017 with cauterization of approximately 10 arteriovenous malformations at the right side of the colon. He also removed a polyp or two at that time. The patient then had rectal bleeding with severe anemia and underwent another colonoscopy on 09/30/[address] Marco Sanchez at [facility] and at that time there were no AVMs found at the cecum or right side of the colon. He found a couple of AVMs of the rectum, which he treated with argon plasma coagulation. Today the patient had rectal bleeding at home grossly this morning. He described clots and fresh blood and purplish bloody clots. EGD performed by me immediately prior to this colonoscopy tonight was negative for any bleeding. POSTOPERATIVE DIAGNOSIS: Tonight, a large AVM at the mid transverse colon identified. It was not actively bleeding, but there was a lot of fresh-looking blood around it and wispy clots. I did place two clips on the AVM. Labs on day of discharge: Labs from last 24 hours 12/11/17 12/11/17 12/11/17 10:00 03:34 03:34 WBC 3.1 L RBC 3.35 L Hgb 9.1 L 8.7 L Hct 28.4 L 27.0 L MCV 80.6 MCH 25.9 L MCHC 32.1 RDW 19.0 H Plt Count 65 L MPV 9.4 Gran % 57.0 Lymph % (Auto) 27.5 [place] % (Auto) 11.6 Eos % (Auto) 3.4 Baso % (Auto) 0.5 Gran # 1.8 Lymph # (Auto) 0.9 L [place] # (Auto) 0.4 Eos # (Auto) 0.1 Baso # (Auto) 0 Sodium 139 Potassium 3.3 Chloride 101 Carbon Dioxide 28 Anion Gap 10.0 BUN 12 Creatinine 1.0 GFR Calculation 81 Glucose 105 Calcium 8.1 L Total Bilirubin 0.6 AST 17 ALT 5 Alkaline Phosphatase 77 Total Protein 5.8 L Albumin 3.2 Globulin 2.6 Albumin/Globulin Ratio 1.2 12/10/17 12/10/17 17:50 10:15 WBC RBC Hgb 9.7 L 9.2 L Hct 30.1 L 28.5 L MCV MCH MCHC RDW Plt Count MPV Gran % Lymph % (Auto) [place] % (Auto) Eos % (Auto) Baso % (Auto) Gran # Lymph # (Auto) [place] # (Auto) Eos # (Auto) Baso # (Auto) Sodium Potassium Chloride Carbon Dioxide Anion Gap BUN Creatinine GFR Calculation Glucose Calcium Total Bilirubin AST ALT Alkaline Phosphatase Total Protein Albumin Globulin Albumin/Globulin Ratio - Impressions Left wrist FINDINGS: Ulnar minus noted. There is mild degenerative change in the distal radioulnar, radiocarpal, STT and first CMC joints which have progressed since the comparison study nearly one year ago. There is no osseous abnormality. Mild diffuse soft tissue swelling noted IMPRESSION: -Ulnar minus -Multilevel degenerative change - progressing - Imaging and Cardiology Chest x-ray Additional comments: IMPRESSION: Marked stable cardiomegaly. No CHF or other acute process Medical - DS: A/P - Patient/Caregiver Discharge Instructions Activity: increase activity as tolerated Diet: Low Sodium (2gm) (diabetic diet) Additional Instructions: Advance your diet as tolerated. Return to be seen in the ED if you have further bleeding. Continue your home medicine as they were before admission. - Problem Maintenance (1) Lower gastrointestinal hemorrhage Status: Resolved (2) Chest pain Status: Resolved Qualifiers: Chest pain type: other chest pain Qualified Code(s): R07.89 - Other chest pain; R07.8 - Other chest pain (3) Hypokalemia Status: Resolved (4) CAD (coronary artery disease) Status: Chronic Comment: Pt. denies a history of [place] Qualifiers: Coronary Disease-Associated Artery/Lesion type: unspecified vessel or lesion type [place] vs. transplanted heart: [place] heart Associated angina: angina presence unspecified Qualified Code(s): I25.10 - Atherosclerotic heart disease of [place] coronary artery without angina pectoris - Follow up Plan Follow up with: Luis Mtz PA-C [Primary Care Provider] - (1-2 weeks) Disposition: Home Health Service Prognosis: Fair Rehab Potential: Fair I certify that the patient requires SNF services: No Overall status at discharge: patient is back to baseline Medical - DS: Qual - VTE Deep Vein Thrombosis/Pulmonary Embolism Present on Admission: No
[2017-12-11] MEDS: NICOTINE 7 MG PATCH TOPICAL SCH (14:12)
[2017-12-11] MEDS ORDERED: LISINOPRIL 10 MG TABLET PO SCH (21:00)
== END 2017-12-11 14:10 | disposition home health service (06) | DRG 377 ==
LOC: ED 13:23 → SUR 19:38 → ICU 21:23
PROVIDERS: ADMIT Internal Medicine; ATTEND Internal Medicine

== ENCOUNTER 2023-01-12 05:15 | Inpatient (IN) ==
[2023-01-12] MEDS ORDERED: 0.9 % SODIUM CHLORIDE 1,000 ML IV ONE (05:20)
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
[2023-01-12 05:28] LABS: POC Calcium, Ionized 1.12 (1.16-1.32); POC Creatinine 2.3 (0.6-1.2); POC Potassium 4.4 (3.3-5.1)
[2023-01-12] MEDS ORDERED: LACTULOSE 20 GM/30 ML ORAL.SOL PR ONE (05:44)
[2023-01-12] MEDS ORDERED: FUROSEMIDE 40 MG/4 ML VIAL IV ONE (05:44)
[2023-01-12 06:51] LABS: Alcohol, Blood < 10.0 mg/dL; Alcohol,Blood < 0.010 gm/dL (<0.010); Basophils # (Auto) 0.05 K/mcL (0.00-0.30); Basophils % (Auto) 1.2 % (0.0-2.0); Eosinophils # (Auto) 0.18 K/mcL (0.00-0.70); Eosinophils % (Auto) 4.2 % (0.0-7.0); Hematocrit 27.8 % (40.1-51.0); Hemoglobin 8.8 g/dL (13.7-17.5); Lymphocytes # (Auto) 0.62 K/mcL (1.50-4.80); Lymphocytes % (Auto) 14.5 % (15.5-49.0); Mean Cell Volume 104.5 fL (80.0-100.0); Mean Corpuscular HGB Conc 31.7 g/dL (31.0-36.0); Monocytes # (Auto) 0.51 K/mcL (0.10-0.90); Monocytes % (Auto) 11.9 % (1.0-12.0); Neutrophils % (Auto) 67.7 % (38.0-78.0); Platelet Count 44 K/mcL (140-440); RBC 2.66 M/mcL (4.63-6.08); Red Cell Distribution Width 23.2 % (11.5-14.5); WBC 4.3 K/mcL (4.5-11.0)
[2023-01-12 06:55] LABS: ALT/SGPT 13 U/L (<40); AST/SGOT 30 U/L (<40); Alkaline Phosphatase 131 U/L (39-117); Bilirubin,Direct 1.1 mg/dL (<0.3); Globulin 3.9 gm/dL (2.2-3.7)
[2023-01-12] MEDS ORDERED: DILTIAZEM 25 MG/5 ML VIAL IV ONE (07:01)
[2023-01-12 09:18] LABS: POC INR 1.7 (0.8-1.2); POC Pro Time 19.4 (11.9-14.5)
--- NOTE | 2023-01-12 09:35 | XRay Report ---
CLINICAL INFORMATION: Dyspnea COMPARISON: 11/30/2022 TECHNIQUE: Portable FINDINGS: Marked cardiomegaly is increased from previous study. There is mild mediastinal widening. Moderate pulmonary vascular congestion noted with peribronchial vascular edema. Moderate patchy infiltrate in the right mid/lower lung lung show slight improvement from prior exam. Small right pleural effusion has progressed. IMPRESSION: Moderate CHF. Moderate right mid and lower lung infiltrates slight improvement from comparison examination six weeks ago Interpreted and Authenticated by: Gunnar Sethi 01/12/23
[2023-01-12 09:51] LABS: Amphetamine Screen,Urine None detected; Barbiturate Screen,Urine None detected; Benzodiazepines Screen,Urine None detected; Cannabinoid Screen,Urine Suspect Positive; Cocaine Screen,Urine None detected; Opiate Screen,Urine Suspect Positive; Oxycodone, Urine Screen None detected; Phencyclidine Screen,Urine None detected
--- NOTE | 2023-01-12 09:56 | Cat Scan Report ---
CLINICAL INFORMATION: Decreased mental status COMPARISON: 11/16/2022. TECHNIQUE: 2.5 mm helical slices were obtained in the skull base to vertex. Following reconstruction, axial reformatted images were reviewed at bone and parenchymal windows. The exam was performed using radiation dose optimization techniques including, but not limited to, automated exposure control, adjustment of the mA and/or kV according to patient size and use of iterative reconstruction technique. FINDINGS: The ventricles, sulci, fissures, and cisterns are symmetrically enlarged compatible with mild age-related atrophy. No extra-axial fluid collections are identified. Mild patchy chronic ischemic changes, in the deep cerebral white matter, are expected for age. Small remote infarct inferior left frontal lobe seen as before. 3 mm remote lacunar infarct in the right remy also noted. There is no hemorrhage, mass effect, or edema. Bone windows show no osseous abnormality. IMPRESSION: Mild atrophy and chronic ischemic changes in the deep cerebral white matter-expected for age. Small remote infarct inferior left frontal lobe and remote lacunar infarct right remy. No intracerebral hemorrhage. Moderate left mastoiditis-improved from previous exam . Interpreted and Authenticated by: Gunnar Sethi 01/12/23
--- NOTE | 2023-01-12 10:30 | Emergency Department Note ---
Course Course Course Narrative: Assumed care of the patient at 0700. This and report examined patient checked labs. The patient is basically an alcoholic and opiate addicted individual with a past history of hepatitis C as well who went off his lactulose for the last several days and became progressively more demented. Patient's labs show a MELD score of 23 WBCs 4.3, H&H 8.8/27.8, platelets 44, bilirubin 2.0, PT/INR 19.4 and 1.7, ammonia 233, BUN, creatinine 2.3. This letter changes symbolize is a decrease in his renal failure and may constitute hepatorenal syndrome. We will try to admit the patient to inpatient care he has received 1 dose of lactulose per rectum and started him on p.o. this morning lactulose. Also started Rafiximin this morning. Patient is currently demented with slurring sounds when asked questions. His GCS is currently 10. Vital Signs Vital signs: Vital Signs Temperature 97.5 F 01/12/23 05:20 Pulse Rate 116 H 01/12/23 05:20 Respiratory Rate 22 01/12/23 05:20 Blood Pressure 169/91 01/12/23 05:20 Pulse Oximetry (%) 86 L 01/12/23 05:20 Oxygen Delivery Method Room Air 01/12/23 05:20 Temperature 97.5 F 01/12/23 05:20 Pulse Rate 82 01/12/23 10:01 Respiratory Rate 18 01/12/23 10:01 Blood Pressure 110/68 01/12/23 10:01 Pulse Oximetry (%) 96 01/12/23 10:01 Oxygen Delivery Method Nasal Cannula 01/12/23 06:25 Oxygen Flow Rate (L/min) 2 01/12/23 06:25 [facility] MDM Narrative Medical decision making narrative: Narrative: Lab Data 01/12/23 05:44 Labs: Lab Results 01/12/23 01/12/23 01/12/23 Range/Units 05:25 05:44 05:44 WBC 4.3 L (4.5-11.0) K/mcL RBC 2.66 L (4.63-6.08) M/mcL Hgb 8.8 L (13.7-17.5) g/dL Hct 27.8 L (40.1-51.0) % POC Hct 28.0 L (41-55) MCV 104.5 H (80.0-100.0) fL MCH 33.1 (26.0-34.0) pg MCHC 31.7 (31.0-36.0) g/dL RDW 23.2 H (11.5-14.5) % Plt Count 44 L* (140-440) K/mcL MPV ---- (8.8-12.5) fL Immature Gran % (Auto) 0.5 (0.0-0.5) % Neut % (Auto) 67.7 (38.0-78.0) % Lymph % (Auto) 14.5 L (15.5-49.0) % [place] % (Auto) 11.9 (1.0-12.0) % Eos % (Auto) 4.2 (0.0-7.0) % Baso % (Auto) 1.2 (0.0-2.0) % Lymph # (Auto) 0.62 L (1.50-4.80) K/mcL [place] # (Auto) 0.51 (0.10-0.90) K/mcL Eos # (Auto) 0.18 (0.00-0.70) K/mcL Baso # (Auto) 0.05 (0.00-0.30) K/mcL Immature Gran # 0.02 (0.00-0.05) K/mcl Absolute Neutrophils 2.90 (1.80-8.00) K/mcL POC PT (11.9-14.5) POC INR (0.8-1.2) POC Sodium 142 (133-145) POC Potassium 4.4 (3.3-5.1) POC Chloride 104 (96-108) POC Total CO2 28.0 (22-30) POC BUN 34 H (6-20) POC Creatinine 2.3 H (0.6-1.2) POC Glucose 122 H (70-105) POC WB Ioniz Calcium 1.12 L (1.16-1.32) Total Bilirubin 2.0 H (0.1-1.0) mg/dL Direct Bilirubin 1.1 H (<0.3) mg/dL AST 30 (<40) U/L ALT 13 (<40) U/L Alkaline Phosphatase 131 H (39-117) U/L Ammonia (16-60) umol/L Total Protein 6.9 (5.9-8.4) gm/dL Albumin 3.0 L (3.2-5.2) gm/dL Globulin 3.9 H (2.2-3.7) gm/dL Lipase (7-60) U/L Urine Opiates Screen Ur Oxycodone Screen U Oxycod/Oxymor Confirm Urine Methadone Screen Ur Methadone Confirm Ur Barbiturates Screen Ur Barbiturate Confirm Ur Phencyclidine Scrn Urine PCP Confirm Ur Amphetamines Screen U Amphetamines Confirm U Benzodiazepines Scrn Ur Benzodiazepine, Qnt Urine Cocaine Screen Urine Cocaine Confirm U Marijuana (THC) Screen Ethyl Alcohol mg/dL mg/dL Ethyl Alcohol g/dL (<0.010) gm/dL 01/12/23 01/12/23 01/12/23 Range/Units 05:44 06:05 06:05 WBC (4.5-11.0) K/mcL RBC (4.63-6.08) M/mcL Hgb (13.7-17.5) g/dL Hct (40.1-51.0) % POC Hct (41-55) MCV (80.0-100.0) fL MCH (26.0-34.0) pg MCHC (31.0-36.0) g/dL RDW (11.5-14.5) % Plt Count (140-440) K/mcL MPV (8.8-12.5) fL Immature Gran % (Auto) (0.0-0.5) % Neut % (Auto) (38.0-78.0) % Lymph % (Auto) (15.5-49.0) % [place] % (Auto) (1.0-12.0) % Eos % (Auto) (0.0-7.0) % Baso % (Auto) (0.0-2.0) % Lymph # (Auto) (1.50-4.80) K/mcL [place] # (Auto) (0.10-0.90) K/mcL Eos # (Auto) (0.00-0.70) K/mcL Baso # (Auto) (0.00-0.30) K/mcL Immature Gran # (0.00-0.05) K/mcl Absolute Neutrophils (1.80-8.00) K/mcL POC PT (11.9-14.5) POC INR (0.8-1.2) POC Sodium (133-145) POC Potassium (3.3-5.1) POC Chloride (96-108) POC Total CO2 (22-30) POC BUN (6-20) POC Creatinine (0.6-1.2) POC Glucose (70-105) POC WB Ioniz Calcium (1.16-1.32) Total Bilirubin (0.1-1.0) mg/dL Direct Bilirubin (<0.3) mg/dL AST (<40) U/L ALT (<40) U/L Alkaline Phosphatase (39-117) U/L Ammonia 233 H (16-60) umol/L Total Protein (5.9-8.4) gm/dL Albumin (3.2-5.2) gm/dL Globulin (2.2-3.7) gm/dL Lipase 37 (7-60) U/L Urine Opiates Screen Ur Oxycodone Screen U Oxycod/Oxymor Confirm Urine Methadone Screen Ur Methadone Confirm Ur Barbiturates Screen Ur Barbiturate Confirm Ur Phencyclidine Scrn Urine PCP Confirm Ur Amphetamines Screen U Amphetamines Confirm U Benzodiazepines Scrn Ur Benzodiazepine, Qnt Urine Cocaine Screen Urine Cocaine Confirm U Marijuana (THC) Screen Ethyl Alcohol mg/dL < 10.0 mg/dL Ethyl Alcohol g/dL < 0.010 (<0.010) gm/dL 01/12/23 01/12/23 Range/Units 06:15 09:16 WBC (4.5-11.0) K/mcL RBC (4.63-6.08) M/mcL Hgb (13.7-17.5) g/dL Hct (40.1-51.0) % POC Hct (41-55) MCV (80.0-100.0) fL MCH (26.0-34.0) pg MCHC (31.0-36.0) g/dL RDW (11.5-14.5) % Plt Count (140-440) K/mcL MPV (8.8-12.5) fL Immature Gran % (Auto) (0.0-0.5) % Neut % (Auto) (38.0-78.0) % Lymph % (Auto) (15.5-49.0) % [place] % (Auto) (1.0-12.0) % Eos % (Auto) (0.0-7.0) % Baso % (Auto) (0.0-2.0) % Lymph # (Auto) (1.50-4.80) K/mcL [place] # (Auto) (0.10-0.90) K/mcL Eos # (Auto) (0.00-0.70) K/mcL Baso # (Auto) (0.00-0.30) K/mcL Immature Gran # (0.00-0.05) K/mcl Absolute Neutrophils (1.80-8.00) K/mcL POC PT 19.4 H (11.9-14.5) POC INR 1.7 H (0.8-1.2) POC Sodium (133-145) POC Potassium (3.3-5.1) POC Chloride (96-108) POC Total CO2 (22-30) POC BUN (6-20) POC Creatinine (0.6-1.2) POC Glucose (70-105) POC WB Ioniz Calcium (1.16-1.32) Total Bilirubin (0.1-1.0) mg/dL Direct Bilirubin (<0.3) mg/dL AST (<40) U/L ALT (<40) U/L Alkaline Phosphatase (39-117) U/L Ammonia (16-60) umol/L Total Protein (5.9-8.4) gm/dL Albumin (3.2-5.2) gm/dL Globulin (2.2-3.7) gm/dL Lipase (7-60) U/L Urine Opiates Screen Suspect positive A Ur Oxycodone Screen None detected U Oxycod/Oxymor Confirm TNP Urine Methadone Screen None detected Ur Methadone Confirm TNP Ur Barbiturates Screen None detected Ur Barbiturate Confirm TNP Ur Phencyclidine Scrn None detected Urine PCP Confirm TNP Ur Amphetamines Screen None detected U Amphetamines Confirm TNP U Benzodiazepines Scrn None detected Ur Benzodiazepine, Qnt TNP Urine Cocaine Screen None detected Urine Cocaine Confirm TNP U Marijuana (THC) Screen Suspect positive A Ethyl Alcohol mg/dL mg/dL Ethyl Alcohol g/dL (<0.010) gm/dL Discharge Plan Patient/Caregiver Discharge Instructions Pt seen by ASSOCIATE TEACHER/PA only: No Clinical Impression: Acute encephalopathy Patient Disposition: Still a Patient Condition: Undetermined Follow up with: Kirsty Montanez DO [Primary Care Provider] - Prescriptions: No Action albuterol sulfate 90 mcg/actuation HFA aerosol inhaler 2 puff INHALATION .Q4-6 PRN (Reason: shortness of breath or wheezing) Qty: 18 0RF ipratropium-albuterol 0.5 mg-3 mg(2.5 mg base)/3 mL solution for nebulization 3 ml INHALATION QID PRN (Reason: Shortness Of Breath) Qty: 180 0RF ferrous sulfate 325 mg (65 mg iron) tablet 325 mg PO QDAY 90 Days Qty: 90 1RF (DME) Hernia Belt With Scrotal Support See Rx Instructions .Route .MEDSUPPLY Qty: 1 0RF Rx Instructions: As directed oxycodone 10 mg tablet 10 mg PO BID PRN (Reason: pain) Qty: 60 0RF lactulose [Generlac] 10 gram/15 mL solution 20 g PO QID PRN (Reason: Constipation) Qty: 473 6RF sertraline 25 mg tablet 25 mg PO QDAY Qty: 30 1RF pantoprazole [Protonix] 40 mg tablet,delayed release (DR/EC) 40 mg PO QAM 90 Days Qty: 90 1RF ondansetron 4 mg tablet,disintegrating 4 mg PO Q4H PRN (Reason: Nausea) Qty: 90 0RF Rx Instructions: DISSOLVE ONE TABLET UNDER TONGUE EVERY 4-6 HOURS NEEDED FOR VOMITING doxycycline hyclate 100 mg capsule 100 mg PO BID Qty: 20 0RF prednisone 20 mg tablet 40 mg PO QDAY Qty: 10 0RF (DME) diabetic shoes Qty: 1 0RF Dose Instruction: As directed Rx Instructions: As directed oxygen See Rx Instructions .ROUTE .COMPLEX Qty: 99 0RF Dose Instruction: 2 L by nasal cannula throughout the night and during the day when active. ; Rx Instructions: 2 L by nasal cannula throughout the night and during the day when active. ; tadalafil 20 mg tablet 20 mg PO QDAY aspirin 81 mg tablet,delayed release (DR/EC) 81 mg PO QDAY tamsulosin [Flomax] 0.4 mg capsule 0.4 mg PO QDAY ketorolac 0.5 % drops 1 drp OPHTHALMIC QDAY Opsumit 10 mg tablet 10 mg PO HS Rx Instructions: swallow whole; do not chew/break/dissolve/open (DME) Sleeping wedge cushion See Rx Instructions .Route .MEDSUPPLY Qty: 1 0RF Rx Instructions: Use at night to sleep to help prevent acid reflux (DME) Life Chair See Rx Instructions .Route .MEDSUPPLY Qty: 1 0RF Rx Instructions: As directed furosemide 40 mg tablet 40 mg PO BID Qty: 90 2RF spironolactone 100 mg tablet 100 mg PO QAM Qty: 30 3RF (DME) hernia support belt See Rx Instructions .Route .MEDSUPPLY Qty: 1 0RF Rx Instructions: As directed hydrocodone-ibuprofen 5-200 mg tablet 1.5 tab PO QID PRN (Reason: cancer pain) Qty: 120 0RF Rx Instructions: Exempt, cancer pain amlodipine 5 mg Tablet 5 mg PO QDAY One Daily Multivitamin-Iron 18 mg iron Tablet 1 tab PO QDAY Vitamin D3 capsule 50,000 unit PO WEEKLY carvedilol 12.5 mg tablet 12.5 mg PO HS Qty: 30 0RF Rx Instructions: must administer with a meal/food (DME) oxygen-air delivery systems Device See Rx Instructions .ROUTE .MEDSUPPLY Qty: 1 Rx Instructions: As directed
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
[2023-01-12] MEDS: RIFAXIMIN 550 MG TABLET PO SCH ×2 (12:34→21:31)
[2023-01-12] MEDS ORDERED: LACTULOSE 20 GM/30 ML ORAL.SOL PO SCH (13:00)
[2023-01-12 13:39] LABS: Appearance,Urine CLEAR (Clear); Bilirubin,Urine Negative (Negative); Color,Urine YELLOW; Culture Indicated,Urine No; Glucose,Urine (UA) Negative (Negative); Ketones,Urine Negative (Negative); Leukocyte Esterase,Urine Negative /uL (Negative); Nitrate,Urine Negative (Negative); Protein,Urine Negative (Negative); Specific Gravity,Urine 1.006 (1.000-1.035); Urine Blood Negative (Negative); Urine RBC 1 /hpf (0-3); Urine Squamous Epithelial Cell 0 /hpf (0-4); Urine Transitional Epi Cells < 1 /hpf (0-2); Urine WBC 1 /hpf (0-4); Urobilinogen,Urine Negative
[2023-01-12] MEDS ORDERED: ONDANSETRON 4 MG/2 ML VIAL IV PRN (15:20)
[2023-01-12] MEDS ORDERED: hydrALAZINE 20 MG/ML VIAL IV PRN (15:20)
[2023-01-12] MEDS ORDERED: MAGNESIUM SULFATE 2 GM/50 ML BAG IV PRN (15:20)
[2023-01-12] MEDS ORDERED: POTASSIUM CHLORIDE 20 MEQ TABLET PO PRN (15:20)
[2023-01-12] MEDS ORDERED: POTASSIUM CHLORIDE 40 MEQ in DEXTROSE 5% IN WATER 500 ML IV PRN (15:20)
[2023-01-12] MEDS ORDERED: LACTULOSE 20 GM/30 ML ORAL.SOL PO PRN (15:20)
[2023-01-12] MEDS ORDERED: SENNOSIDES 1 TABLET PO PRN (15:20)
[2023-01-12] MEDS: 0.9 % SODIUM CHLORIDE 10 ML SYRINGE IV SCH ×2 (15:38→21:52)
[2023-01-12] MEDS: LACTULOSE 20 GM/30 ML ORAL.SOL PO SCH ×2 (15:56→21:35)
[2023-01-12] MEDS: ALBUMIN HUMAN 12.5 GM/50 ML VIAL IV SCH ×2 (15:56→21:35)
[2023-01-13] MEDS: RIFAXIMIN 550 MG TABLET PO SCH ×3 (01:03→20:54)
[2023-01-13] MEDS: ACETAMINOPHEN 325 MG TABLET PO PRN (01:27)
[2023-01-13] MEDS: 0.9 % SODIUM CHLORIDE 10 ML SYRINGE IV SCH ×4 (01:28→20:54)
[2023-01-13] MEDS: METOPROLOL TARTRATE 5 MG/5 ML VIAL IV PRN (01:28)
[2023-01-13] MEDS: ALBUMIN HUMAN 12.5 GM/50 ML VIAL IV SCH ×2 (04:17→09:30)
[2023-01-13 06:50] LABS: Basophils # (Auto) 0.04 K/mcL (0.00-0.30); Basophils % (Auto) 1.1 % (0.0-2.0); Eosinophils # (Auto) 0.09 K/mcL (0.00-0.70); Eosinophils % (Auto) 2.4 % (0.0-7.0); Hematocrit 24.1 % (40.1-51.0); Hemoglobin 7.4 g/dL (13.7-17.5); Lymphocytes # (Auto) 0.43 K/mcL (1.50-4.80); Lymphocytes % (Auto) 11.6 % (15.5-49.0); Mean Cell Volume 104.3 fL (80.0-100.0); Mean Corpuscular HGB Conc 30.7 g/dL (31.0-36.0); Mean Platelet Volume 11.2 fL (8.8-12.5); Monocytes % (Auto) 10.8 % (1.0-12.0); Neutrophils % (Auto) 73.8 % (38.0-78.0); Platelet Count 37 K/mcL (140-440); RBC 2.31 M/mcL (4.63-6.08); Red Cell Distribution Width 23.1 % (11.5-14.5); WBC 3.7 K/mcL (4.5-11.0)
[2023-01-13 07:01] LABS: ALT/SGPT 9 U/L (<40); AST/SGOT 24 U/L (<40); Albumin 2.5 gm/dL (3.2-5.2); Albumin/Globulin Ratio 0.8 (1.0-2.3); Alkaline Phosphatase 95 U/L (39-117); Bilirubin,Direct 1.6 mg/dL (<0.3); Bilirubin,Total 3.4 mg/dL (0.1-1.0); Blood Urea Nitrogen 29 mg/dL (8-23); Carbon Dioxide 23 mmol/L (22-30); Chloride 110 mmol/L (96-108); Glomerular Filtration Rate 52; Glucose 74 mg/dL (70-105); Lactate Dehydrogenase 285 U/L (135-225); Triglycerides 55 mg/dL (<150); Uric Acid 9.2 mg/dL (2.5-8.0)
--- NOTE | 2023-01-13 08:01 | Internal Med Progress Note ---
SUBJECTIVE Subjective Patient information: Note initiated : 01/13/23 at 7:52 am Service Date, if different from initiated Date: [] Patient: Shane Marroquin a 67 y/o M admitted on 01/12/23 for altered mental status. Chief Complaint: [] Interval history: History of present illness: Mr. Marroquin is a 67 year old M With history of alcoholic Cirrhosis as well as hepatitis C. Sounds like patient still has a little bit of alcohol every once in a while. History of diabetes and COPD for which the family has been trying to get home oxygen. History of strokes, history of atrial fibrillation not on anticoagulation because of recurrent GI bleeds felt to be multiple AVMs. Chronic kidney disease. Patient presented due to decreased LOC. Patient has not taken his meds for the last couple days and become increasingly obtunded. Per the he has not n ausea compliant with his lactulose anyway and misses doses. His also states he was diagnosed with stage IV lung cancer by his oncologist recently and they are awaiting a biopsy. In the ED is found to have a pneumonia of 233. He was given lactulose rectally. His creatinine was elevated 2.3 above baseline. He is anemic and thrombocytopenic. Is also in A-fib RVR received diltiazem when he first arrived. Because of patient's altered mental state unable to get any history from him and the history obtained from chart and from Bailey his significant other. 01/13 Patient sitting up in chair eating breakfast today. Mentation much improved. Patient with advanced liver disease and recent diagnosed stage IV lung cancer. He does state he has been in discussions with hospice but is not officially on hospice. Patient also states he wears 3 L of oxygen at home on occasion but not consistently. Thrombocytopenia severe. Chronic severe anemia. Creatinine improved. Review of Systems: Unable to obtain given altered mental state PHYSICAL EXAM General: Awake, No acute Distress Eyes/N/T: EOMI, PERRL, scleral icterus Head/Neck: neck supple, full ROM, CV: irreg irreg, No murmurs, Pulm: wheezing b/l, no rales, no respiratory distress Abd: soft, nontender, +BS x4, protuberant Ext: no clubbing/cyanosis, 2-3+ b/l LE edema, nontender Neuro:Alert now and mentation much improved appropriate in conversation follows commands and moves extremities Psychiatric: Skin: warm/dry, normal color Constitutional Vitals: Vital Signs Temp Pulse Resp BP Pulse Ox O2 Del Method O2 Flow Rate 98.2 F 101 H 13 127/80 95 Nasal Cannula 2 01/13/23 04:00 01/13/23 04:30 01/13/23 04:30 01/13/23 04:00 01/13/23 04:30 01/13/23 04:00 01/13/23 04:00 Period Temp Pulse Resp BP Sys/Carlson Pulse Ox O2 Del Method O2 Flow Rate Last 24 Hr 97.5 F-98.4 F 47-161 13-24 92-153/52-98 88-100 Nasal Cannula- Room Air 2-2 Intake and Output 01/12/23 01/13/23 01/13/23 19:59 03:59 11:59 Intake Total 50 410 50 Output Total 700 850 125 Balance -650 -440 -75 Weight 90 kg 88.995 kg Intake & Output: Intake & Output 01/12/23 01/13/23 01/13/23 19:59 03:59 11:59 Intake Total 50 410 50 Output Total 700 850 125 Balance -650 -440 -75 Weight 90 kg 88.995 kg Intake: IV 50 50 50 Oral 360 Output: Urine Catheter Amount 700 600 125 Stool 250 Other: Urine Appearance Clear Clear Clear Urine Color Dark Sarah Light Sarah Light Sarah Urine Odor Normal Normal Stool Size Moderate Stool Color Brown Stool Consistency Watery OBJ DATA Labs 01/13/23 05:51 01/13/23 05:51 Labs: Abnormal Lab Results 01/13/23 01/13/23 01/12/23 05:51 05:51 09:16 WBC 3.7 L RBC 2.31 L Hgb 7.4 L Hct 24.1 L POC Hct MCV 104.3 H MCHC 30.7 L RDW 23.1 H Plt Count 37 L* Lymph % (Auto) 11.6 L Lymph # (Auto) 0.43 L POC PT 19.4 H POC INR 1.7 H Chloride 110 H POC BUN BUN 29 H Creatinine 1.4 H POC Creatinine POC Glucose Uric Acid 9.2 H Calcium 8.0 L POC WB Ioniz Calcium Total Bilirubin 3.4 H Direct Bilirubin 1.6 H Alkaline Phosphatase Ammonia Lactate Dehydrogenase 285 H Total Protein 5.5 L Albumin 2.5 L Globulin Albumin/Globulin Ratio 0.8 L Urine Opiates Screen U Marijuana (THC) Screen 01/12/23 01/12/23 01/12/23 06:15 06:05 05:44 WBC RBC Hgb Hct POC Hct MCV MCHC RDW Plt Count Lymph % (Auto) Lymph # (Auto) POC PT POC INR Chloride POC BUN BUN Creatinine POC Creatinine POC Glucose Uric Acid Calcium POC WB Ioniz Calcium Total Bilirubin 2.0 H Direct Bilirubin 1.1 H Alkaline Phosphatase 131 H Ammonia 233 H Lactate Dehydrogenase Total Protein Albumin 3.0 L Globulin 3.9 H Albumin/Globulin Ratio Urine Opiates Screen Suspect positive A U Marijuana (THC) Screen Suspect positive A 01/12/23 01/12/23 05:44 05:25 WBC 4.3 L RBC 2.66 L Hgb 8.8 L Hct 27.8 L POC Hct 28.0 L MCV 104.5 H MCHC RDW 23.2 H Plt Count 44 L* Lymph % (Auto) 14.5 L Lymph # (Auto) 0.62 L POC PT POC INR Chloride POC BUN 34 H BUN Creatinine POC Creatinine 2.3 H POC Glucose 122 H Uric Acid Calcium POC WB Ioniz Calcium 1.12 L Total Bilirubin Direct Bilirubin Alkaline Phosphatase Ammonia Lactate Dehydrogenase Total Protein Albumin Globulin Albumin/Globulin Ratio Urine Opiates Screen U Marijuana (THC) Screen Meds: Medications Acetaminophen (Acetaminophen 325 Mg Tablet) 650 mg PO Q6HP PRN; Protocol PRN Reason: Per Pain Protocol/Fever > 101 Last Admin: 01/13/23 01:27 Dose: 650 mg Albuterol/Ipratropium (Ipratropium/Albuterol 3 Ml Ampul.Neb) 3 ml NEB Q4HP PRN PRN Reason: Shortness Of Breath Hydralazine HCl (Hydralazine 20 Mg/Ml Vial) 0 mg IV Q2HP PRN PRN Reason: Hypertension Albumin Human (Buminate) 12.5 gm in 50 mls @ 100 mls/hr IV Q6H MARY LOU Stop: 01/13/23 10:29 Last Infusion: 01/13/23 06:42 Dose: Infused Potassium Chloride 40 meq/ (Dextrose) 520 mls @ 130 mls/hr IV UD PRN PRN Reason: Potassium < 3 Magnesium Sulfate (Magnesium Sulfate) 2 gm in 50 mls @ 50 mls/hr IV UD PRN PRN Reason: Magnesium </= 1.6 Iron Carb/Multivit/[place]/Folic Acid (Multivit,Ther Iron,Ca,Fa & Min 1 Tablet) 1 tab PO DAILY [facility] Ketorolac Tromethamine (Ketorolac Tromethamine 1 Gtt Bottle) 1 gtt OU QDAY [facility] Lactulose (Lactulose 20 Gm/30 Ml Oral.Rekha) 30 gm PO TID [facility] Last Admin: 01/12/23 21:35 Dose: 30 gm Lactulose (Lactulose 20 Gm/30 Ml Oral.Rekha) 30 gm PO DAILYP PRN PRN Reason: Constipation Metoprolol Tartrate (Metoprolol Tartrate 5 Mg/5 Ml Vial) 5 mg IV Q2HP PRN PRN Reason: Tachyarrhythmias HR>110 Last Admin: 01/13/23 01:28 Dose: 5 mg Ondansetron HCl (Ondansetron 4 Mg/2 Ml Vial) 4 mg IV Q4HP PRN PRN Reason: Nausea And Vomiting Pantoprazole Sodium (Pantoprazole 40 Mg Tablet) 40 mg PO QAM [facility] Potassium Chloride (Potassium Chloride 20 Meq Tablet) 40 meq PO UD PRN PRN Reason: Potssium is 3-3.5 Potassium Chloride (Potassium Chloride 20 Meq Tablet) 40 meq PO UD PRN PRN Reason: Potassium < 3 Senna (Sennosides 1 Tablet) 2 tab PO DAILYP PRN PRN Reason: Constipation Sodium Chloride (0.9 % Sodium Chloride 10 Ml Syringe) 10 ml IV Q8 [facility] Last Admin: 01/13/23 04:18 Dose: 10 ml A/P Narrative A/P Narrative: A: *Hepatic Encephalopathy grade III: not compliant with meds -pt still likely drinking etoh occasionally -improving *BEATRICE on CKD IIIB: ?Hepatorenal syndrome vs volume depletion -improving *possible Hepatorenal syndrome: -check urine sodium, although being on lasix likely confound result, not sure when lasix taken last *Cirrhosis 2/2 etoh and hep c: -w/sequelae of coagulop athy/thrombocytopenia/hyperbilirubinemia/hypoalbuminemia -MELD=30 and Child-[place]= Class C *Anemia/Leukopenia/Thrombocytopenia, chronic: 2/2 above *Coagulopathy: 2/2 above *chronic Afib RVR: Not on anticoagulation due to recurrent bleeding and thrombocytopenia *h/o GI bleeding from AVM's: *h/o CHF with EF 50%, hypokinesis. grade II diasolic *h/o CAD w/stent: on asa *COPD(wears 3L occasionally): Family try to get home oxygen *HTN: *h/o CVA's: *Depression/anxiety: *GERD: *Tobacco abuse: *Stage IV lung cancer recent dx, per family: *Goals of care: Prognosis quite guarded P: -Lactulose CA and PO when able, rifaximin, titrate to 2-3 soft BMs daily, -Albumin -Monitor renal function/UOP/fluid balance -Monitor CBC and chemistry closely replete electrolytes as needed -Avoid nephrotoxic meds -coreg held initially, prn IV lopressor -cont asa -Smoking cessation counseling -pt/ot -CM for placement needs -pt has been in discussion with Hospice -ppx: SCD (no chemical for plt<50k) / home ppi DNR Time Spent With Patient Time: Total time spent is greater than 50% in coordination of care (as documented) at patient's floor/unit and/or counseling patient: Subsequent: Total time with patient: 50 - 65 Minutes
[2023-01-13] MEDS: PANTOPRAZOLE 40 MG TABLET PO SCH (08:25)
[2023-01-13] MEDS: LACTULOSE 20 GM/30 ML ORAL.SOL PO SCH ×3 (08:25→20:53)
[2023-01-13] MEDS: ASPIRIN 81 MG TAB.CHEW PO SCH (08:25)
[2023-01-13] MEDS: MULTIVIT,THER IRON,CA,FA & MIN 1 TABLET PO SCH (08:25)
[2023-01-13] MEDS: KETOROLAC TROMETHAMINE 1 GTT BOTTLE OU SCH (08:26)
[2023-01-13] MEDS: POTASSIUM CHLORIDE 20 MEQ TABLET PO PRN (08:27)
[2023-01-13] MEDS ORDERED: IPRATROPIUM/ALBUTEROL 3 ML AMPUL.NEB NEB ONE (09:12)
[2023-01-13] MEDS: CARVEDILOL 12.5 MG TABLET PO SCH (17:23)
--- NOTE | 2023-01-13 21:21 | Internal Med Progress Note ---
SUBJECTIVE Subjective Patient information: Note initiated : 01/13/23 at 9:19 pm Service Date, if different from initiated Date: [] Patient: Shane Marroquin a 67 y/o M admitted on 01/12/23 for altered mental status. Chief Complaint: [] Additional PMFSH (Level 3 Only): Mr. Marroquin is a 67 year old M With history of alcoholic Cirrhosis as well as hepatitis C. Sounds like patient still has a little bit of alcohol every once in a while. History of diabetes and COPD for which the family has been trying to get home oxygen. History of strokes, history of atrial fibrillation not on anticoagulation because of recurrent GI bleeds felt to be multiple AVMs. Chronic kidney disease. Patient presented due to decreased LOC. Patient has not taken his meds for the last couple days and become increasingly obtunded. Per the he has not nausea compliant with his lactulose anyway and misses doses. His also states he was diagnosed with stage IV lung cancer by his oncologist recently and they are awaiting a biopsy. In the ED is found to have a Ammonia of 233. He was given lactulose rectally. His creatinine was elevated 2.3 above baseline. He is anemic and thrombocytopenic. Is also in A-fib RVR received diltiazem when he first arrived. Because of patient's altered mental state unable to get any history from him and the history obtained from chart and from Bailey his significant other. 01/13 Patient sitting up in chair eating breakfast today. Mentation much improved. Patient with advanced liver disease and recent diagnosed stage IV lung cancer. He does state he has been in discussions with hospice but is not officially on hospice. Patient also states he wears 3 L of oxygen at home on occasion but not consistently. Thrombocytopenia severe. Chronic severe anemia. Creatinine improved. Review of Systems: Unable to obtain given altered mental state PHYSICAL EXAM General: Awake, No acute Distress Eyes/N/T: EOMI, PERRL, scleral icterus Head/Neck: neck supple, full ROM, CV: irreg irreg, No murmurs, Pulm: wheezing b/l, no rales, no respiratory distress Abd: soft, nontender, +BS x4, protuberant Ext: no clubbing/cyanosis, 2-3+ b/l LE edema, nontender Neuro:Alert now and mentation much improved appropriate in conversation follows commands and moves extremities Psychiatric: Skin: warm/dry, normal color Constitutional Vitals: Vital Signs Temp Pulse Resp BP Pulse Ox O2 Del Method O2 Flow Rate 97.3 F 107 H 20 152/75 100 Nasal Cannula 3 01/13/23 16:00 01/13/23 16:00 01/13/23 16:00 01/13/23 16:00 01/13/23 16:00 01/13/23 19:47 01/13/23 19:47 Period Temp Pulse Resp BP Sys/Carlson Pulse Ox O2 Del Method O2 Flow Rate Last 24 Hr 97.1 F-98.4 F 89-129 -24 100-152/52-96 90-100 Nasal Cannula- Room Air 2-3 Intake and Output 01/13/23 01/13/23 01/14/23 11:59 19:59 03:59 Intake Total 1020 2440 240 Output Total 275 750 Balance 745 1690 240 Weight 91.796 kg Patient Weight 01/14/23 03:59 Weight 91.796 kg Intake & Output: Intake & Output 01/13/23 01/13/23 01/14/23 11:59 19:59 03:59 Intake Total 1020 2440 240 Output Total 275 750 Balance 745 1690 240 Weight 91.796 kg Intake: IV 100 Oral 920 2440 240 Output: Urine Catheter Amount 125 300 Stool 150 450 Other: Meal Breakfast applesauce, 3 jellos Percent of Meal Consumed 100% 75% Feeding Ability Independent Urine Appearance Clear Uretheral ([place]) Clear Clear Urine Color Light Sarah Uretheral ([place]) Dark Yellow Dark Yellow Urine Odor Normal Stool Size Moderate Small Moderate Stool Color Brown Brown Brown Green Stool Consistency Soft Loose Soft Liquid Loose # Bowel Movements 2 1 # of times incontinent of 0 1 1 Bowels OBJ DATA Labs 01/13/23 05:51 01/13/23 05:51 Labs: Abnormal Lab Results 01/13/23 01/13/23 01/12/23 05:51 05:51 09:16 WBC 3.7 L RBC 2.31 L Hgb 7.4 L Hct 24.1 L POC Hct MCV 104.3 H MCHC 30.7 L RDW 23.1 H Plt Count 37 L* Lymph % (Auto) 11.6 L Lymph # (Auto) 0.43 L POC PT 19.4 H POC INR 1.7 H Chloride 110 H POC BUN BUN 29 H Creatinine 1.4 H POC Creatinine POC Glucose Uric Acid 9.2 H Calcium 8.0 L POC WB Ioniz Calcium Total Bilirubin 3.4 H Direct Bilirubin 1.6 H Alkaline Phosphatase Ammonia Lactate Dehydrogenase 285 H Total Protein 5.5 L Albumin 2.5 L Globulin Albumin/Globulin Ratio 0.8 L Urine Opiates Screen U Marijuana (THC) Screen 01/12/23 01/12/23 01/12/23 06:15 06:05 05:44 WBC RBC Hgb Hct POC Hct MCV MCHC RDW Plt Count Lymph % (Auto) Lymph # (Auto) POC PT POC INR Chloride POC BUN BUN Creatinine POC Creatinine POC Glucose Uric Acid Calcium POC WB Ioniz Calcium Total Bilirubin 2.0 H Direct Bilirubin 1.1 H Alkaline Phosphatase 131 H Ammonia 233 H Lactate Dehydrogenase Total Protein Albumin 3.0 L Globulin 3.9 H Albumin/Globulin Ratio Urine Opiates Screen Suspect positive A U Marijuana (THC) Screen Suspect positive A 01/12/23 01/12/23 05:44 05:25 WBC 4.3 L RBC 2.66 L Hgb 8.8 L Hct 27.8 L POC Hct 28.0 L MCV 104.5 H MCHC RDW 23.2 H Plt Count 44 L* Lymph % (Auto) 14.5 L Lymph # (Auto) 0.62 L POC PT POC INR Chloride POC BUN 34 H BUN Creatinine POC Creatinine 2.3 H POC Glucose 122 H Uric Acid Calcium POC WB Ioniz Calcium 1.12 L Total Bilirubin Direct Bilirubin Alkaline Phosphatase Ammonia Lactate Dehydrogenase Total Protein Albumin Globulin Albumin/Globulin Ratio Urine Opiates Screen U Marijuana (THC) Screen Meds: Medications Acetaminophen (Acetaminophen 325 Mg Tablet) 650 mg PO Q6HP PRN; Protocol PRN Reason: Per Pain Protocol/Fever > 101 Last Admin: 01/13/23 01:27 Dose: 650 mg Albuterol/Ipratropium (Ipratropium/Albuterol 3 Ml Ampul.Neb) 3 ml NEB Q4HP PRN PRN Reason: Shortness Of Breath Aspirin (Aspirin 81 Mg Tab.Chew) 81 mg PO DAILY [facility] Last Admin: 01/13/23 08:25 Dose: 81 mg Carvedilol (Carvedilol 12.5 Mg Tablet) [facility] Last Admin: 03/23/23 17:23 Dose: 12.5 mg Hydralazine HCl (Hydralazine 20 Mg/Ml Vial) 0 mg IV Q2HP PRN PRN Reason: Hypertension Potassium Chloride 40 meq/ (Dextrose) 520 mls @ 130 mls/hr IV UD PRN PRN Reason: Potassium < 3 Magnesium Sulfate (Magnesium Sulfate) 2 gm in 50 mls @ 50 mls/hr IV UD PRN PRN Reason: Magnesium </= 1.6 Iron Carb/Multivit/[place]/Folic Acid (Multivit,Ther Iron,Ca,Fa & Min 1 Tablet) 1 tab PO DAILY [facility] Last Admin: 01/13/23 08:25 Dose: 1 tab Ketorolac Tromethamine (Ketorolac Tromethamine 1 Gtt Bottle) 1 gtt OU QDAY [facility] Last Admin: 01/13/23 08:26 Dose: Not Given Lactulose (Lactulose 20 Gm/30 Ml Oral.Rekha) 30 gm PO TID [facility] Last Admin: 01/13/23 20:53 Dose: Not Given Lactulose (Lactulose 20 Gm/30 Ml Oral.Rekha) 30 gm PO DAILYP PRN PRN Reason: Constipation Metoprolol Tartrate (Metoprolol Tartrate 5 Mg/5 Ml Vial) 5 mg IV Q2HP PRN PRN Reason: Tachyarrhythmias HR>110 Last Admin: 01/13/23 01:28 Dose: 5 mg Ondansetron HCl (Ondansetron 4 Mg/2 Ml Vial) 4 mg IV Q4HP PRN PRN Reason: Nausea And Vomiting Pantoprazole Sodium (Pantoprazole 40 Mg Tablet) 40 mg PO QAM [facility] Last Admin: 01/13/23 08:25 Dose: 40 mg Potassium Chloride (Potassium Chloride 20 Meq Tablet) 40 meq PO UD PRN PRN Reason: Potssium is 3-3.5 Last Admin: 01/13/23 08:27 Dose: 40 meq Potassium Chloride (Potassium Chloride 20 Meq Tablet) 40 meq PO UD PRN PRN Reason: Potassium < 3 Senna (Sennosides 1 Tablet) 2 tab PO DAILYP PRN PRN Reason: Constipation Sodium Chloride (0.9 % Sodium Chloride 10 Ml Syringe) 10 ml IV Q8 [facility] Last Admin: 01/13/23 20:54 Dose: 10 ml A/P Narrative A/P Narrative: Assessment and plan *Hepatic Encephalopathy grade III: not compliant with meds -pt still likely drinking etoh occasionally -Ammonia 233 on admission, improved to 81 today Rifaximin twice daily, lactulose 30 g 3 times daily, titrate to 2-3 soft bowel movements daily Patient is still mildly confused, significantly improved from before CT head without any acute infarct *BEATRICE on CKD IIIB: ?Hepatorenal syndrome vs volume depletion -improving *Cirrhosis 2/2 etoh and hep c: -w/sequelae of coag ulopathy/thrombocytopenia/hyperbilirubinemia/hypoalbuminemia/ascites -MELD=30 and Child-[place]= Class C On Lasix 40 mg p.o. twice daily, beta-dory, Protonix, multivitamin, thiamine *Anemia/Leukopenia/Thrombocytopenia, chronic: Secondary to liver cirrhosis *Coagulopathy: 2/2 above *chronic Afib RVR: Not on anticoagulation due to recurrent bleeding and thrombocytopenia. Rate is poorly controlled with heart rate in 120s. Coreg started. As needed metoprolol *h/o GI bleeding from AVM's: *h/o CHF with EF 50%, hypokinesis. grade II diasolic *h/o CAD w/stent: on asa *COPD(wears 3L occasionally): Family try to get home oxygen *HTN: Blood pressure stable *h/o CVA's: CT head with small remote infarct left frontal lobe and remote lacunar infarct right remy. *Depression/anxiety: *GERD: *Tobacco abuse: *Stage IV lung cancer recent dx, per family: Generalized weakness, continue PT OT Patient has been seen in discussion with hospice DVT prophylaxis with SCDs due to thrombocytopenia, home PPI *Goals of care: Prognosis quite guarded. Patient is DNR Portions of this chart may have been created with [employer]. Occasional wrong-word or sound-like substitutions may have occurred due to the inherent limitations of voice recognition software. Please read the chart carefully and recognize, using context, where the substitutions have occurred. Time Spent With Patient Time: Total time spent is greater than 50% in coordination of care (as documented) at patient's floor/unit and/or counseling patient: Initial: Total time with patient: 55 - 74 minutes
[2023-01-14] MEDS: 0.9 % SODIUM CHLORIDE 10 ML SYRINGE IV SCH ×5 (01:30→22:50)
[2023-01-14] MEDS: METOPROLOL TARTRATE 5 MG/5 ML VIAL IV PRN ×2 (01:31→22:51)
[2023-01-14] MEDS: IPRATROPIUM/ALBUTEROL 3 ML AMPUL.NEB NEB PRN (01:50)
[2023-01-14] MEDS: FUROSEMIDE 40 MG TABLET PO SCH ×3 (07:39→15:51)
[2023-01-14] MEDS: CARVEDILOL 12.5 MG TABLET PO SCH ×2 (07:39→17:32)
[2023-01-14 07:56] LABS: ALT/SGPT 10 U/L (<40); AST/SGOT 28 U/L (<40); Albumin 2.8 gm/dL (3.2-5.2); Albumin/Globulin Ratio 0.9 (1.0-2.3); Alkaline Phosphatase 105 U/L (39-117); Bilirubin,Direct 1.1 mg/dL (<0.3); Bilirubin,Total 2.4 mg/dL (0.1-1.0); Blood Urea Nitrogen 30 mg/dL (8-23); Calcium 8.4 mg/dL (8.6-10.4); Carbon Dioxide 23 mmol/L (22-30); Chloride 105 mmol/L (96-108); Globulin 3.1 gm/dL (2.2-3.7); Glomerular Filtration Rate 44; Glucose 124 mg/dL (70-105); Lactate Dehydrogenase 287 U/L (135-225); Phosphorous 2.8 mg/dL (2.5-4.5); Triglycerides 44 mg/dL (<150); Uric Acid 9.8 mg/dL (2.5-8.0)
[2023-01-14 08:06] LABS: Basophils # (Auto) 0.03 K/mcL (0.00-0.30); Basophils % (Auto) 0.7 % (0.0-2.0); Eosinophils # (Auto) 0.08 K/mcL (0.00-0.70); Eosinophils % (Auto) 1.9 % (0.0-7.0); Hematocrit 25.1 % (40.1-51.0); Hemoglobin 7.7 g/dL (13.7-17.5); Lymphocytes # (Auto) 0.44 K/mcL (1.50-4.80); Lymphocytes % (Auto) 10.5 % (15.5-49.0); Mean Cell Volume 106.8 fL (80.0-100.0); Mean Corpuscular HGB Conc 30.7 g/dL (31.0-36.0); Mean Platelet Volume 12.5 fL (8.8-12.5); Monocytes # (Auto) 0.38 K/mcL (0.10-0.90); Neutrophils % (Auto) 77.7 % (38.0-78.0); Platelet Count 41 K/mcL (140-440); RBC 2.35 M/mcL (4.63-6.08); Red Cell Distribution Width 22.9 % (11.5-14.5); WBC 4.2 K/mcL (4.5-11.0)
[2023-01-14] MEDS: IPRATROPIUM/ALBUTEROL 3 ML AMPUL.NEB NEB SCH ×2 (08:20→20:20)
[2023-01-14] MEDS: SPIRONOLACTONE 25 MG TABLET PO SCH (08:51)
[2023-01-14] MEDS: MULTIVIT,THER IRON,CA,FA & MIN 1 TABLET PO SCH (08:51)
[2023-01-14] MEDS: RIFAXIMIN 550 MG TABLET PO SCH ×2 (08:51→20:43)
[2023-01-14] MEDS: ASPIRIN 81 MG TAB.CHEW PO SCH (08:52)
[2023-01-14] MEDS: KETOROLAC TROMETHAMINE 1 GTT BOTTLE OU SCH (08:52)
[2023-01-14] MEDS: LACTULOSE 20 GM/30 ML ORAL.SOL PO SCH ×3 (08:52→20:42)
[2023-01-14] MEDS: PANTOPRAZOLE 40 MG TABLET PO SCH (08:52)
--- NOTE | 2023-01-14 10:49 | EKG ---
[facility] Test Date: 2023-01-12 Pat Name: Shane Marroquin Department: ED Room: Gender: Male [employer] Attendant: SE : 1955 Requested By: Wilber Baker Order Number: [id number] Reading MD: Gunnar Esparza M.D. Measurements Intervals [place] Rate: 114 P: NV: QRS: 78 QRSD: 104 T: QT: 372 QTc: 512 Interpretive Statements Atrial fibrillation Low voltage, extremity leads Electronically Signed On 01-14-2023 10:48:47 PDT by Gunnar Esparza M.D. /store/[id number]
--- NOTE | 2023-01-14 18:26 | Internal Med Progress Note ---
SUBJECTIVE Subjective Patient information: Note initiated : 01/14/23 at 6:18 pm Service Date, if different from initiated Date: [] Patient: Shane Marroquin 67 y/o M admitted on 01/12/23 for altered mental status. 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 Patient had not taken his meds for the past couple days and became increasingly obtunded. Per patient was noncompliant with his lactulose. also reported he was diagnosed with stage IV lung cancer by his oncologist and they are awaiting biopsy. In the ED patient was found to have ammonia of 233, he was given lactulose recta lly. Creatinine was elevated at 2.3 above baseline, patient was noted to be anemic and thrombocytopenic. He was also in A-fib with RVR, received diltiazem. 01/14. Patient was sitting up in chair. His mentation has improved however she is still confused, he thought president was [place], thought it was November however knew where he was. Patient reported having bowel movement. He is still in A-fib with RVR with heart rate jumping up to 120s. He reports no chest pain or palpitations. Patient has advanced liver cirrhosis and recent diagnosis of stage IV lung cancer. He has been in discussion with hospice but is not officially on hospice. Patient is supposed to be on 3 L oxygen at home however he does not wear it consistently. Lab work revealed anemia of 7.7, thrombocytopenia of 40 K, macrocytosis with MCV of 104. Review of Systems: No fever or chills No shortness of breath, cough or sputum production No chest pain, no palpitations No abdominal pain, nausea or vomiting No rashes Patient has somewhat confused Denies any excessive thirst or urination PHYSICAL EXAM General: Awake, No acute Distress Eyes/N/T: EOMI, PERRL, scleral icterus Head/Neck: neck supple, full ROM, CV: irreg irreg, heart rate 120s, no murmurs, Pulm: wheezing b/l, no rales, no respiratory distress Abd: soft, nontender, +BS x4, protuberant, evidence of mild ascites Ext: no clubbing/cyanosis, 2+ b/l LE edema, nontender Neuro:Alert now and mentation much improved appropriate in conversation follows commands and moves extremities Psychiatric: Skin: warm/dry, normal color Assessment and plan *Hepatic Encephalopathy grade III: not compliant with meds -pt still likely drinking etoh occasionally -Ammonia 233 on admission, improved to 81 today Rifaximin twice daily, lactulose 30 g 3 times daily, titrate to 2-3 soft bowel movements daily Patient is still mildly confused, significantly improved from before CT head without any acute infarct Noncompliance with medical therapy. Counseled on compliance *BEATRICE on CKD IIIB: ?Hepatorenal syndrome vs volume depletion -improving *Cirrhosis 2/2 etoh and hep c: -w/sequelae of coagulopathy/thrombo cytopenia/hyperbilirubinemia/hypoalbuminemia/ascites -MELD=30 and Child-[place]= Class C On Lasix 40 mg p.o. twice daily, beta-dory, Protonix, multivitamin, thiamine *Anemia/Leukopenia/Thrombocytopenia, chronic: Secondary to liver cirrhosis *Coagulopathy: 2/2 above *chronic Afib RVR: Not on anticoagulation due to recurrent bleeding and thrombocytopenia. Rate is poorly controlled with heart rate in 120s. Coreg started. As needed metoprolol *h/o GI bleeding from AVM's: *h/o CHF with EF 50%, hypokinesis. grade II diasolic *h/o CAD w/stent: on asa *COPD(wears 3L occasionally): Family try to get home oxygen *HTN: Blood pressure stable *h/o CVA's: CT head with small remote infarct left frontal lobe and remote lacunar infarct right remy. *Depression/anxiety: *GERD: *Tobacco abuse: *Stage IV lung cancer recent dx, per family: Generalized weakness, continue PT OT Patient has been seen in discussion with hospice DVT prophylaxis with SCDs due to thrombocytopenia, home PPI *Goals of care: Prognosis quite guarded. Patient is DNR Portions of this chart may have been created with [employer] voice recognition software. Occasional wrong-word or sound-like substitutions may have occurred due to the inherent limitations of voice recognition software. Please read the chart carefully and recognize, using context, where the substitutions have occurred. Constitutional Vitals: Vital Signs Temp Pulse Resp BP Pulse Ox O2 Del Method O2 Flow Rate 98.8 F 107 H 22 128/85 97 Nasal Cannula 2 01/14/23 15:58 01/14/23 15:58 01/14/23 16:00 01/14/23 14:00 01/14/23 16:00 01/14/23 14:00 01/14/23 14:00 Period Temp Pulse Resp BP Sys/Carlson Pulse Ox O2 Del Method O2 Flow Rate Last 24 Hr 97.8 F-98.8 F 71-140 17-30 112-140/67-85 89-100 Nasal Cannula- Nasal Cannula 2-4 Intake and Output 01/14/23 01/14/23 01/14/23 03:59 11:59 19:59 Intake Total 240 920 500 Output Total 375 300 651 Balance -135 620 -151 Intake & Output: Intake & Output 01/14/23 01/14/23 01/14/23 03:59 11:59 19:59 Intake Total 240 920 500 Output Total 375 300 651 Balance -135 620 -151 Intake: Oral 240 920 500 Output: Urine Catheter Amount 375 300 450 # of times incontinent of urine 1 Urine/Stool Mix 200 Other: Meal Breakfast Lunch Percent of Meal Consumed 75% 100% Feeding Ability Independent Urine Appearance Small Blood Clots Uretheral ([place]co) Clear Urine Color Dark Yellow Light Sarah Dark Yellow Uretheral ([place]) Light Sarah Urine Odor Normal Stool Size Moderate Copious Large Stool Color Brown Brown Brown Stool Consistency Soft Loose Soft # Bowel Movements 1 1 # of times incontinent of 1 1 Bowels OBJ DATA Labs 01/14/23 05:51 01/14/23 05:51 Labs: Abnormal Lab Results 01/14/23 01/14/23 01/14/23 11:16 05:51 05:51 WBC 4.2 L RBC 2.35 L Hgb 7.7 L Hct 25.1 L POC Hct MCV 106.8 H MCHC 30.7 L RDW 22.9 H Plt Count 41 L* Lymph % (Auto) 10.5 L Lymph # (Auto) 0.44 L POC PT POC INR Chloride POC BUN BUN 30 H Creatinine 1.6 H POC Creatinine Glucose 124 H POC Glucose Uric Acid 9.8 H Calcium 8.4 L POC WB Ioniz Calcium Total Bilirubin 2.4 H Direct Bilirubin 1.1 H Alkaline Phosphatase Ammonia 81 H Lactate Dehydrogenase 287 H Total Protein Albumin 2.8 L Globulin Albumin/Globulin Ratio 0.9 L Urine Opiates Screen U Marijuana (THC) Screen 01/13/23 01/13/23 01/12/23 05:51 05:51 09:16 WBC 3.7 L RBC 2.31 L Hgb 7.4 L Hct 24.1 L POC Hct MCV 104.3 H MCHC 30.7 L RDW 23.1 H Plt Count 37 L* Lymph % (Auto) 11.6 L Lymph # (Auto) 0.43 L POC PT 19.4 H POC INR 1.7 H Chloride 110 H POC BUN BUN 29 H Creatinine 1.4 H POC Creatinine Glucose POC Glucose Uric Acid 9.2 H Calcium 8.0 L POC WB Ioniz Calcium Total Bilirubin 3.4 H Direct Bilirubin 1.6 H Alkaline Phosphatase Ammonia Lactate Dehydrogenase 285 H Total Protein 5.5 L Albumin 2.5 L Globulin Albumin/Globulin Ratio 0.8 L Urine Opiates Screen U Marijuana (THC) Screen 01/12/23 01/12/23 01/12/23 06:15 06:05 05:44 WBC RBC Hgb Hct POC Hct MCV MCHC RDW Plt Count Lymph % (Auto) Lymph # (Auto) POC PT POC INR Chloride POC BUN BUN Creatinine POC Creatinine Glucose POC Glucose Uric Acid Calcium POC WB Ioniz Calcium Total Bilirubin 2.0 H Direct Bilirubin 1.1 H Alkaline Phosphatase 131 H Ammonia 233 H Lactate Dehydrogenase Total Protein Albumin 3.0 L Globulin 3.9 H Albumin/Globulin Ratio Urine Opiates Screen Suspect positive A U Marijuana (THC) Screen Suspect positive A 01/12/23 01/12/23 05:44 05:25 WBC 4.3 L RBC 2.66 L Hgb 8.8 L Hct 27.8 L POC Hct 28.0 L MCV 104.5 H MCHC RDW 23.2 H Plt Count 44 L* Lymph % (Auto) 14.5 L Lymph # (Auto) 0.62 L POC PT POC INR Chloride POC BUN 34 H BUN Creatinine POC Creatinine 2.3 H Glucose POC Glucose 122 H Uric Acid Calcium POC WB Ioniz Calcium 1.12 L Total Bilirubin Direct Bilirubin Alkaline Phosphatase Ammonia Lactate Dehydrogenase Total Protein Albumin Globulin Albumin/Globulin Ratio Urine Opiates Screen U Marijuana (THC) Screen Meds: Medications Acetaminophen (Acetaminophen 325 Mg Tablet) 650 mg PO Q6HP PRN; Protocol PRN Reason: Per Pain Protocol/Fever > 101 Last Admin: 01/13/23 01:27 Dose: 650 mg Albuterol/Ipratropium (Ipratropium/Albuterol 3 Ml Ampul.Neb) 3 ml NEB Q4HP PRN PRN Reason: Shortness Of Breath Last Admin: 01/14/23 01:50 Dose: 3 ml Albuterol/Ipratropium (Ipratropium/Albuterol 3 Ml Ampul.Neb) 3 ml NEB BID [facility] Last Admin: 01/14/23 08:20 Dose: 3 ml Aspirin (Aspirin 81 Mg Tab.Chew) 81 mg PO DAILY [facility] Last Admin: 01/14/23 08:52 Dose: 81 mg Carvedilol (Carvedilol 12.5 Mg Tablet) 12.5 mg PO BIDCC [facility] Last Admin: 01/14/23 17:32 Dose: 12.5 mg Furosemide (Furosemide 40 Mg Tablet) 40 mg PO BIDD [facility] Last Admin: 01/14/23 15:51 Dose: 40 mg Hydralazine HCl (Hydralazine 20 Mg/Ml Vial) 0 mg IV Q2HP PRN PRN Reason: Hypertension Potassium Chloride 40 meq/ (Dextrose) 520 mls @ 130 mls/hr IV UD PRN PRN Reason: Potassium < 3 Magnesium Sulfate (Magnesium Sulfate) 2 gm in 50 mls @ 50 mls/hr IV UD PRN PRN Reason: Magnesium </= 1.6 Iron Carb/Multivit/[place]/Folic Acid (Multivit,Ther Iron,Ca,Fa & Min 1 Tablet) 1 tab PO DAILY [facility] Last Admin: 01/14/23 08:51 Dose: 1 tab Ketorolac Tromethamine (Ketorolac Tromethamine 1 Gtt Bottle) 1 gtt OU QDAY [facility] Last Admin: 01/14/23 08:52 Dose: Not Given Lactulose (Lactulose 20 Gm/30 Ml Oral.Rekha) 30 gm PO TID [facility] Last Admin: 01/14/23 15:52 Dose: 30 gm Lactulose (Lactulose 20 Gm/30 Ml Oral.Rekha) 30 gm PO DAILYP PRN PRN Reason: Constipation Melatonin (Melatonin 3 Mg Tablet) 3 mg PO HSP PRN PRN Reason: Insomnia Metoprolol Tartrate (Metoprolol Tartrate 5 Mg/5 Ml Vial) 5 mg IV Q2HP PRN PRN Reason: Tachyarrhythmias HR>110 Last Admin: 01/14/23 01:31 Dose: 5 mg Ondansetron HCl (Ondansetron 4 Mg/2 Ml Vial) 4 mg IV Q4HP PRN PRN Reason: Nausea And Vomiting Pantoprazole Sodium (Pantoprazole 40 Mg Tablet) 40 mg PO QAM [facility] Last Admin: 01/14/23 08:52 Dose: 40 mg Potassium Chloride (Potassium Chloride 20 Meq Tablet) 40 meq PO UD PRN PRN Reason: Potssium is 3-3.5 Last Admin: 01/13/23 08:27 Dose: 40 meq Potassium Chloride (Potassium Chloride 20 Meq Tablet) 40 meq PO UD PRN PRN Reason: Potassium < 3 Senna (Sennosides 1 Tablet) 2 tab PO DAILYP PRN PRN Reason: Constipation Sodium Chloride (0.9 % Sodium Chloride 10 Ml Syringe) 10 ml IV Q8 [facility] Last Admin: 01/14/23 14:35 Dose: 10 ml Spironolactone (Spironolactone 25 Mg Tablet) 100 mg PO DAILY [facility] Last Admin: 01/14/23 08:51 Dose: 100 mg A/P Time Spent With Patient Time: Total time spent is greater than 50% in coordination of care (as documented) at patient's floor/unit and/or counseling patient:
[2023-01-14] MEDS: MELATONIN 3 MG TABLET PO PRN (20:43)
[2023-01-15] MEDS: IPRATROPIUM/ALBUTEROL 3 ML AMPUL.NEB NEB PRN (01:44)
[2023-01-15] MEDS: 0.9 % SODIUM CHLORIDE 10 ML SYRINGE IV SCH ×4 (05:05→20:35)
[2023-01-15] MEDS: METOPROLOL TARTRATE 5 MG/5 ML VIAL IV PRN (05:06)
[2023-01-15] MEDS: CARVEDILOL 12.5 MG TABLET PO SCH (08:09)
[2023-01-15] MEDS: PANTOPRAZOLE 40 MG TABLET PO SCH (08:09)
[2023-01-15] MEDS: MULTIVIT,THER IRON,CA,FA & MIN 1 TABLET PO SCH (08:10)
[2023-01-15] MEDS: SPIRONOLACTONE 25 MG TABLET PO SCH (08:10)
[2023-01-15] MEDS: LACTULOSE 20 GM/30 ML ORAL.SOL PO SCH ×3 (08:10→20:35)
[2023-01-15] MEDS: RIFAXIMIN 550 MG TABLET PO SCH ×2 (08:10→20:35)
[2023-01-15] MEDS: ASPIRIN 81 MG TAB.CHEW PO SCH (08:10)
[2023-01-15] MEDS: FUROSEMIDE 40 MG TABLET PO SCH ×2 (08:10→15:23)
[2023-01-15] MEDS: KETOROLAC TROMETHAMINE 1 GTT BOTTLE OU SCH (08:11)
[2023-01-15] MEDS ORDERED: FUROSEMIDE 20 MG/2 ML VIAL IV SCH (08:38)
[2023-01-15] MEDS: METOPROLOL TARTRATE 25 MG TABLET PO SCH ×3 (09:04→20:35)
[2023-01-15] MEDS: IPRATROPIUM/ALBUTEROL 3 ML AMPUL.NEB NEB SCH ×2 (09:08→20:15)
[2023-01-15 10:23] LABS: Basophils # (Auto) 0.04 K/mcL (0.00-0.30); Basophils % (Auto) 1.1 % (0.0-2.0); Eosinophils # (Auto) 0.19 K/mcL (0.00-0.70); Eosinophils % (Auto) 5.1 % (0.0-7.0); Hematocrit 25.5 % (40.1-51.0); Lymphocytes # (Auto) 0.36 K/mcL (1.50-4.80); Lymphocytes % (Auto) 9.6 % (15.5-49.0); Mean Cell Volume 105.8 fL (80.0-100.0); Mean Corpuscular HGB Conc 31.4 g/dL (31.0-36.0); Mean Platelet Volume 12.6 fL (8.8-12.5); Monocytes # (Auto) 0.34 K/mcL (0.10-0.90); Neutrophils % (Auto) 74.9 % (38.0-78.0); Platelet Count 39 K/mcL (140-440); RBC 2.41 M/mcL (4.63-6.08); Red Cell Distribution Width 22.4 % (11.5-14.5); WBC 3.8 K/mcL (4.5-11.0)
[2023-01-15 10:30] LABS: ALT/SGPT 13 U/L (<40); AST/SGOT 34 U/L (<40); Albumin 3.1 gm/dL (3.2-5.2); Albumin/Globulin Ratio 0.9 (1.0-2.3); Alkaline Phosphatase 104 U/L (39-117); Bilirubin,Total 2.5 mg/dL (0.1-1.0); Blood Urea Nitrogen 27 mg/dL (8-23); Calcium 8.2 mg/dL (8.6-10.4); Carbon Dioxide 23 mmol/L (22-30); Chloride 102 mmol/L (96-108); Globulin 3.4 gm/dL (2.2-3.7); Glomerular Filtration Rate 52; Glucose 172 mg/dL (70-105)
--- NOTE | 2023-01-15 11:22 | Internal Med Progress Note ---
SUBJECTIVE Subjective Patient information: Note initiated : 01/14/23 at 6:16 pm Service Date, if different from initiated Date: [] Patient: Shane Marroquin 67 y/o M admitted on 01/12/23 for altered mental status. 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 Patient had not taken his meds for the past couple days and became increasingly obtunded. Per patient was noncompliant with his lactulose. also reported he was diagnosed with stage IV lung cancer by his oncologist and they are awaiting biopsy. In the ED patient was found to have ammonia of 233, he was given lactulose rectally. Creatinine was elevated at 2.3 above baseline, patient was noted to be anemic and thrombocytopenic. He was also in A-fib with RVR, received diltiazem. 01/14. Patient was sitting up in chair. His mentation has improved however she is still confused, he thought president was [place], thought it was November however knew where he was. Patient reported having bowel movement. He is still in A-fib with RVR with heart rate jumping up to 120s. He reports no chest pain or palpitations. Patient has advanced liver cirrhosis and recent diagnosis of stage IV lung cancer. He has been in discussion with hospice but is not officially on hospice. Patient is supposed to be on 3 L oxygen at home however he does not wear it consistently. Lab work revealed anemia of 7.7, thrombocytopenia of 40 K, macrocytosis with MCV of 104. 3/25. Reviewed oncology records from 01/10/2023. Patient has hepatocellular car cinoma with enhancing right hepatic lobe mass, there is also pulmonary nodules per oncology that are suspicious and growing over time, AFP has also continued to elevate suggestive of distant metastatic spread. Oncology has tentative plans for systemic therapy and percutaneous biopsy of lung lesion. Today patient is a more alert, he was having his breakfast, his orientation has improved. He remains in A-fib with RVR with heart rate in 120s-130s however denies any chest pain, palpitations. Serum ammonia down to 40, hemoglobin improved to 8.0, he has chronic thrombocytopenia which is unchanged. Review of Systems: No fever or chills No shortness of breath, cough or sputum production No chest pain, no palpitations No abdominal pain, nausea or vomiting No rashes Patient has somewhat confused Denies any excessive thirst or urination PHYSICAL EXAM General: Alert and awake, sitting up in bedside chair, in no acute distress Eyes/N/T: EOMI, PERRL, scleral icterus Head/Neck: neck supple, full ROM, CV: irreg irreg, heart rate 120s, no murmurs, Pulm: wheezing b/l, no rales, no respiratory distress Abd: soft, nontender, +BS x4, protuberant, evidence of mild ascites Ext: no clubbing/cyanosis, 1+ b/l LE edema, nontender Neuro:Alert oriented x3, no focal deficits Psychiatric: Appropriate mood and pleasant affect Skin: warm/dry, normal color Assessment and plan Afib RVR: Not on anticoagulation due to recurrent bleeding and thrombocytopenia. Heart rate still in 120s-130s poorly controlled on Coreg. We will start patient on metoprolol 25 mg 3 times daily, blood pressure is stable. If rate still not controlled may need IV diltiazem. *Hepatic Encephalopathy grade III: not compliant with meds -pt still drinks etoh occasionally -Ammonia 233 on admission, improved to 48 Rifaximin twice daily, lactulose 30 g 3 times daily, titrate to 2-3 soft bowel movements daily Encephalopathy has now resolved CT head without any acute infarct Noncompliance with medical therapy. Counseled on compliance *BEATRICE on CKD IIIB: ?Hepatorenal syndrome vs volume depletion -improving *Cirrhosis 2/2 etoh and hep c: -w/sequelae of coagulopa thy/thrombocytopenia/hyperbilirubinemia/hypoalbuminemia/ascites -MELD=30 and Child-[place]= Class C On Lasix 40 mg p.o. twice daily, beta-dory, Protonix, multivitamin, thiamine *Anemia/Leukopenia/Thrombocytopenia, chronic: Secondary to liver cirrhosis *Coagulopathy: 2/2 above *h/o GI bleeding from AVM's: *h/o CHF with EF 50%, hypokinesis. grade II diasolic *h/o CAD w/stent: on asa *COPD(wears 3L occasionally): Family try to get home oxygen *HTN: Blood pressure stable *h/o CVA's: CT head with small remote infarct left frontal lobe and remote lacunar infarct right remy. *Depression/anxiety: *GERD: *Tobacco abuse: Generalized weakness, continue PT OT Patient has been seen in discussion with hospice DVT prophylaxis with SCDs due to thrombocytopenia, home PPI *Goals of care: Prognosis quite guarded. Patient is DNR Portions of this chart may have been created with [employer] voice recognition software. Occasional wrong-word or sound-like substitutions may have occurred due to the inherent limitations of voice recognition software. Please read the chart carefully and recognize, using context, where the substitutions have occurred. Constitutional Vitals: Vital Signs Temp Pulse Resp BP Pulse Ox O2 Del Method O2 Flow Rate 98.8 F 107 H 22 128/85 97 Nasal Cannula 2 01/14/23 15:58 01/14/23 15:58 01/14/23 16:00 01/14/23 14:00 01/14/23 16:00 01/14/23 14:00 01/14/23 14:00 Period Temp Pulse Resp BP Sys/Carlson Pulse Ox O2 Del Method O2 Flow Rate Last 24 Hr 97.8 F-98.8 F 71-140 17-30 112-140/67-85 89-100 Nasal Cannula- Nasal Cannula 2-4 Intake and Output 01/14/23 01/14/23 01/14/23 03:59 11:59 19:59 Intake Total 240 920 500 Output Total 375 300 651 Balance -135 620 -151 Intake & Output: Intake & Output 01/14/23 01/14/23 01/14/23 03:59 11:59 19:59 Intake Total 240 920 500 Output Total 375 300 651 Balance -135 620 -151 Intake: Oral 240 920 500 Output: Urine Catheter Amount 375 300 450 # of times incontinent of urine 1 Urine/Stool Mix 200 Other: Meal Breakfast Lunch Percent of Meal Consumed 75% 100% Feeding Ability Independent Urine Appearance Small Blood Clots Uretheral ([place]co) Clear Urine Color Dark Yellow Light Sarah Dark Yellow Uretheral ([place]) Light Sarah Urine Odor Normal Stool Size Moderate Copious Large Stool Color Brown Brown Brown Stool Consistency Soft Loose Soft # Bowel Movements 1 1 # of times incontinent of 1 1 Bowels OBJ DATA Labs 01/14/23 05:51 01/14/23 05:51 Labs: Abnormal Lab Results 01/14/23 01/14/23 01/14/23 11:16 05:51 05:51 WBC 4.2 L RBC 2.35 L Hgb 7.7 L Hct 25.1 L POC Hct MCV 106.8 H MCHC 30.7 L RDW 22.9 H Plt Count 41 L* Lymph % (Auto) 10.5 L Lymph # (Auto) 0.44 L POC PT POC INR Chloride POC BUN BUN 30 H Creatinine 1.6 H POC Creatinine Glucose 124 H POC Glucose Uric Acid 9.8 H Calcium 8.4 L POC WB Ioniz Calcium Total Bilirubin 2.4 H Direct Bilirubin 1.1 H Alkaline Phosphatase Ammonia 81 H Lactate Dehydrogenase 287 H Total Protein Albumin 2.8 L Globulin Albumin/Globulin Ratio 0.9 L Urine Opiates Screen U Marijuana (THC) Screen 01/13/23 01/13/23 01/12/23 05:51 05:51 09:16 WBC 3.7 L RBC 2.31 L Hgb 7.4 L Hct 24.1 L POC Hct MCV 104.3 H MCHC 30.7 L RDW 23.1 H Plt Count 37 L* Lymph % (Auto) 11.6 L Lymph # (Auto) 0.43 L POC PT 19.4 H POC INR 1.7 H Chloride 110 H POC BUN BUN 29 H Creatinine 1.4 H POC Creatinine Glucose POC Glucose Uric Acid 9.2 H Calcium 8.0 L POC WB Ioniz Calcium Total Bilirubin 3.4 H Direct Bilirubin 1.6 H Alkaline Phosphatase Ammonia Lactate Dehydrogenase 285 H Total Protein 5.5 L Albumin 2.5 L Globulin Albumin/Globulin Ratio 0.8 L Urine Opiates Screen U Marijuana (THC) Screen 01/12/23 01/12/23 01/12/23 06:15 06:05 05:44 WBC RBC Hgb Hct POC Hct MCV MCHC RDW Plt Count Lymph % (Auto) Lymph # (Auto) POC PT POC INR Chloride POC BUN BUN Creatinine POC Creatinine Glucose POC Glucose Uric Acid Calcium POC WB Ioniz Calcium Total Bilirubin 2.0 H Direct Bilirubin 1.1 H Alkaline Phosphatase 131 H Ammonia 233 H Lactate Dehydrogenase Total Protein Albumin 3.0 L Globulin 3.9 H Albumin/Globulin Ratio Urine Opiates Screen Suspect positive A U Marijuana (THC) Screen Suspect positive A 01/12/23 01/12/23 05:44 05:25 WBC 4.3 L RBC 2.66 L Hgb 8.8 L Hct 27.8 L POC Hct 28.0 L MCV 104.5 H MCHC RDW 23.2 H Plt Count 44 L* Lymph % (Auto) 14.5 L Lymph # (Auto) 0.62 L POC PT POC INR Chloride POC BUN 34 H BUN Creatinine POC Creatinine 2.3 H Glucose POC Glucose 122 H Uric Acid Calcium POC WB Ioniz Calcium 1.12 L Total Bilirubin Direct Bilirubin Alkaline Phosphatase Ammonia Lactate Dehydrogenase Total Protein Albumin Globulin Albumin/Globulin Ratio Urine Opiates Screen U Marijuana (THC) Screen Meds: Medications Acetaminophen (Acetaminophen 325 Mg Tablet) 650 mg PO Q6HP PRN; Protocol PRN Reason: Per Pain Protocol/Fever > 101 Last Admin: 01/13/23 01:27 Dose: 650 mg Albuterol/Ipratropium (Ipratropium/Albuterol 3 Ml Ampul.Neb) 3 ml NEB Q4HP PRN PRN Reason: Shortness Of Breath Last Admin: 01/14/23 01:50 Dose: 3 ml Albuterol/Ipratropium (Ipratropium/Albuterol 3 Ml Ampul.Neb) 3 ml NEB BID [facility] Last Admin: 01/14/23 08:20 Dose: 3 ml Aspirin (Aspirin 81 Mg Tab.Chew) 81 mg PO DAILY [facility] Last Admin: 01/14/23 08:52 Dose: 81 mg Carvedilol (Carvedilol 12.5 Mg Tablet) 12.5 mg PO BIDCC [facility] Last Admin: 01/14/23 17:32 Dose: 12.5 mg Furosemide (Furosemide 40 Mg Tablet) 40 mg PO BIDD [facility] Last Admin: 01/14/23 15:51 Dose: 40 mg Hydralazine HCl (Hydralazine 20 Mg/Ml Vial) 0 mg IV Q2HP PRN PRN Reason: Hypertension Potassium Chloride 40 meq/ (Dextrose) 520 mls @ 130 mls/hr IV UD PRN PRN Reason: Potassium < 3 Magnesium Sulfate (Magnesium Sulfate) 2 gm in 50 mls @ 50 mls/hr IV UD PRN PRN Reason: Magnesium </= 1.6 Iron Carb/Multivit/[place]/Folic Acid (Multivit,Ther Iron,Ca,Fa & Min 1 Tablet) 1 tab PO DAILY [facility] Last Admin: 01/14/23 08:51 Dose: 1 tab Ketorolac Tromethamine (Ketorolac Tromethamine 1 Gtt Bottle) 1 gtt OU QDAY [facility] Last Admin: 01/14/23 08:52 Dose: Not Given Lactulose (Lactulose 20 Gm/30 Ml Oral.Rekha) 30 gm PO TID [facility] Last Admin: 01/14/23 15:52 Dose: 30 gm Lactulose (Lactulose 20 Gm/30 Ml Oral.Rekha) 30 gm PO DAILYP PRN PRN Reason: Constipation Melatonin (Melatonin 3 Mg Tablet) 3 mg PO HSP PRN PRN Reason: Insomnia Metoprolol Tartrate (Metoprolol Tartrate 5 Mg/5 Ml Vial) 5 mg IV Q2HP PRN PRN Reason: Tachyarrhythmias HR>110 Last Admin: 01/14/23 01:31 Dose: 5 mg Ondansetron HCl (Ondansetron 4 Mg/2 Ml Vial) 4 mg IV Q4HP PRN PRN Reason: Nausea And Vomiting Pantoprazole Sodium (Pantoprazole 40 Mg Tablet) 40 mg PO QAM [facility] Last Admin: 01/14/23 08:52 Dose: 40 mg Potassium Chloride (Potassium Chloride 20 Meq Tablet) 40 meq PO UD PRN PRN Reason: Potssium is 3-3.5 Last Admin: 01/13/23 08:27 Dose: 40 meq Potassium Chloride (Potassium Chloride 20 Meq Tablet) 40 meq PO UD PRN PRN Reason: Potassium < 3 Senna (Sennosides 1 Tablet) 2 tab PO DAILYP PRN PRN Reason: Constipation Sodium Chloride (0.9 % Sodium Chloride 10 Ml Syringe) 10 ml IV Q8 [facility] Last Admin: 01/14/23 14:35 Dose: 10 ml Spironolactone (Spironolactone 25 Mg Tablet) 100 mg PO DAILY [facility] Last Admin: 01/14/23 08:51 Dose: 100 mg A/P Time Spent With Patient Time: Total time spent is greater than 50% in coordination of care (as documented) at patient's floor/unit and/or counseling patient: Critical Care Time: Yes Total Critical Care Time: 55
[2023-01-15] MEDS: MELATONIN 3 MG TABLET PO PRN (20:35)
[2023-01-16] MEDS: ACETAMINOPHEN 325 MG TABLET PO PRN (00:21)
[2023-01-16] MEDS: 0.9 % SODIUM CHLORIDE 10 ML SYRINGE IV SCH (05:40)
[2023-01-16] MEDS: MULTIVIT,THER IRON,CA,FA & MIN 1 TABLET PO SCH (07:23)
[2023-01-16] MEDS: POTASSIUM CHLORIDE 20 MEQ TABLET PO PRN (07:23)
[2023-01-16] MEDS: METOPROLOL TARTRATE 25 MG TABLET PO SCH (07:23)
[2023-01-16] MEDS: PANTOPRAZOLE 40 MG TABLET PO SCH (07:24)
[2023-01-16] MEDS: SPIRONOLACTONE 25 MG TABLET PO SCH (07:24)
[2023-01-16] MEDS: ASPIRIN 81 MG TAB.CHEW PO SCH (07:24)
[2023-01-16] MEDS: FUROSEMIDE 40 MG TABLET PO SCH (07:24)
[2023-01-16] MEDS: LACTULOSE 20 GM/30 ML ORAL.SOL PO SCH (07:24)
[2023-01-16] MEDS: KETOROLAC TROMETHAMINE 1 GTT BOTTLE OU SCH (07:25)
[2023-01-16] MEDS: RIFAXIMIN 550 MG TABLET PO SCH (07:30)
[2023-01-16] MEDS: IPRATROPIUM/ALBUTEROL 3 ML AMPUL.NEB NEB SCH (09:22)
--- NOTE | 2023-01-16 12:52 | Discharge Summary ---
Discharge Provider Provider IMPORTANT FOLLOW-UP INFORMATION FOR PCP: Patient information: Note initiated : 01/16/23 at 12:50 pm Service Date, if different from initiated Date: [] Patient: Shane Marroquin 67 y/o M admitted on 01/12/23 for altered mental status. 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 Patient had not taken his meds for the past couple days and became increasingly obtunded. Per patient was noncompliant with his lactulose. In the ED patient was found to have ammonia of 233, he was given lactulose rectally. Creatinine was elevated at 2.3 above baseline, patient was noted to be anemic and thrombocytopenic secondary to liver cirrhosis. He was also in A- fib with RVR. Patient was started back on lactulose and rifaximin and his encephalopathy started to improve over the course of next few days. Serum a mmonia came down to 48, patient became alert oriented and returned to baseline mental status. Review of oncology records from 01/10/2023 showed patient has hepatocellular carcinoma with enhancing right hepatic lobe mass, there is also pulmonary nodules per oncology that are suspicious and growing over time, AFP has also continued to elevate suggestive of distant metastatic spread. Oncology has tentative plans for systemic therapy and percutaneous biopsy of lung lesion. MRI liver 12/30/2022 showed progression of left-sided portal vein thrombosis involving entire portal vein. Oncology placed referral to GI for an urgent EGD for evaluation of varices and if negative may consider anticoagulation in the future but not prior to his EGD. Patient remained in A-fib with RVR with heart rate in 120s despite his home dose Coreg. Coreg was discontinued and he was started on metoprolol with good rate control heart rate in 80s-90s. Echocardiogram obtained showed left ventricular systolic function moderately reduced, flattened septum consistent with RV pressure/volume overload, moderate global hypokinesis of left ventricular, estimated EF 30-35%. The right ventricle is moderate to severely dilated. The right ventricular systolic function is moderate to severely reduced. Doppler suggestive of severe pulmonary hypertension> 70 mmHg, moderate aortic insufficiency, a small circumferential pericardial effusion without any evidence of cardiac tamponade. Patient anemia and thrombocytopenia remained stable. Serum creatinine came down to 1.4. PHYSICAL EXAM General: Alert and awake, sitting up in bedside chair, in no acute distress Eyes/N/T: EOMI, PERRL, scleral icterus Head/Neck: neck supple, full ROM, CV: irreg irreg, heart rate 120s, no murmurs, Pulm: wheezing b/l, no rales, no respiratory distress Abd: soft, nontender, +BS x4, protuberant, evidence of mild ascites Ext: no clubbing/cyanosis, 1+ b/l LE edema, nontender Neuro:Alert oriented x3, no focal deficits Psychiatric: Appropriate mood and pleasant affect Skin: warm/dry, normal color Assessment and plan Afib RVR: Not on anticoagulation due to recurrent bleeding and thrombocytopenia. Heart rate poorly controlled on Coreg. Change to metoprolol and heart rate well controlled. Patient will be discharged on metoprolol succinate 75 mg daily. He is not on anticoagulation for risk of GI bleed patient is on aspirin. New onset cardiomyopathy EF30-35% (previously 48% on echo on 05/26/2022), likely tachycardia induced. Patient on aspirin, beta-dory, Lasix, spironolactone, not on antiplatelet therapy due to history of GI bleed. 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 Echocardiogram obtained showed EF 30-35%, flattened septum consistent with RV pressure/volume overload, moderate global hypokinesis of left ventricular. Increase Lasix to 60 mg twice daily, spironolactone 100 mg twice daily, low-salt diet, water restriction. Recommend repeating renal functions and electrolytes in 1 week. Follow-up with cardiology and primary care provider as outpatient. *Hepatic Encephalopathy grade III: not compliant with meds -pt still drinks etoh occasionally -Ammonia 233 on admission, improved to 48 Rifaximin twice daily, lactulose 30 g 3 times daily, titrate to 2-3 soft bowel movements daily Encephalopathy has now resolved CT head without any acute infarct Follow-up with GI as an outpatient Noncompliance with medical therapy. Counseled on compliance *BEATRICE on CKD IIIB: ?Hepatorenal syndrome vs volume depletion -improving *Cirrhosis 2/2 etoh and hep c: -w/sequelae of coagulopathy/thrombocytopenia/hyperbilirubinemia/hypoalbuminemia/ascites -MELD=30 and Child-[place]= Class C Lasix, spironolactone beta-dory, Protonix, multivitamin, thiamine Follow-up with GI as outpatient Ascites and peripheral edema secondary to cirrhosis Patient still has mild peripheral edema, increase Lasix dose to 60 mg twice daily, spironolactone 100 mg daily. Recommend monitor renal functions as an outpatient in 1 week *Anemia/Leukopenia/Thrombocytopenia, chronic: Secondary to liver cirrhosis *Coagulopathy: 2/2 above *h/o GI bleeding from AVM's: *h/o CAD w/stent: on asa *COPD(wears 3L occasionally), noncompliance *HTN: Blood pressure stable *h/o CVA's: CT head with small remote infarct left frontal lobe and remote lacunar infarct right remy. *Depression/anxiety: Stable *GERD: PPI *Tobacco abuse: Counseled on cessation Generalized weakness, continue PT OT Patient has been seen in discussion with hospice DVT prophylaxis with SCDs due to thrombocytopenia, home PPI *Goals of care: Prognosis quite guarded. Patient is DNR Portions of this chart may have been created with [employer] voice recognition software. Occasional wrong-word or sound-like substitutions may have occurred due to the inherent limitations of voice recognition software. Please read the chart carefully and recognize, using context, where the substitutions have occurred. Discharge diagnosis: Hepatic encephalopathy, liver cirrhosis, cardiomyopathy, CHF Time spent discussing smoking cessation with patient: more than 10 minutes Time Spent with Patient Time attestation: Total time spent providing and/or coordinating discharge services: Time spent: Greater than 30 minutes EXAM Constitutional Vitals: Temp Pulse Resp BP Pulse Ox O2 Del Method O2 Flow Rate 98.0 F 95 H 29 H 114/77 92 Nasal Cannula 2 01/16/23 08:00 01/16/23 09:23 01/16/23 11:13 01/16/23 11:13 01/16/23 09:23 01/16/23 11:13 01/16/23 11:13 Discharge Data Data Completed and Pending Labs on day of discharge: Preliminary micro results at discharge 01/12/23 06:00 Blood Culture - Preliminary Blood 01/12/23 05:49 Blood Culture - Preliminary Blood Discharge Plan Patient/Caregiver Discharge Instructions Activity: as per physical therapy Diet: Low Sodium (2gm) and Cardiac Instructions: Metoprolol (By mouth), Furosemide (By mouth), Heart Failure (DC), Hepatic Encephalopathy (GEN) Activity Restrictions/Additional Instructions: Recommend repeat CBC and CMP in 1 week to follow up on electrolytes and renal functions. Prescriptions: New furosemide 40 mg Tablet 60 mg PO BIDD 60 Days Qty: 180 0RF melatonin 3 mg capsule 3 mg PO HS PRN (Reason: sleep) Qty: 30 0RF lactulose 10 gram/15 mL solution 30 g PO TID 30 Days Qty: 4050 0RF metoprolol succinate 50 mg tablet extended release 24 hr 75 mg PO QDAY Qty: 60 0RF rifaximin 550 mg tablet 550 mg PO BID Qty: 60 0RF Continued albuterol sulfate 90 mcg/actuation HFA aerosol inhaler 2 puff INHALATION .Q4-6 PRN (Reason: shortness of breath or wheezing) Qty: 18 0RF pantoprazole [Protonix] 40 mg tablet,delayed release (DR/EC) 40 mg PO QAM 90 Days Qty: 90 1RF aspirin 81 mg tablet,delayed release (DR/EC) 81 mg PO QDAY ketorolac 0.5 % drops 1 drp OPHTHALMIC QDAY spironolactone 100 mg tablet 100 mg PO QAM Qty: 30 3RF hydrocodone-ibuprofen 5-200 mg tablet 1.5 tab PO QID PRN (Reason: cancer pain) Qty: 120 0RF Rx Instructions: Exempt, cancer pain One Daily Multivitamin-Iron 18 mg iron Tablet 1 tab PO QDAY prochlorperazine maleate 10 mg tablet 10 mg PO Q6 Opsumit 10 mg tablet 10 mg PO QDAY sildenafil (pulm.hypertension) 20 mg tablet 20 mg PO TID Discontinued furosemide 40 mg tablet 40 mg PO BID Qty: 90 2RF lactulose 10 gram/15 mL solution 30 ml PO QIDP PRN (Reason: Liver Failure) Rx Instructions: Titrate to 2-3 bm's a day carvedilol 25 mg tablet 25 mg PO BID No Action (DME) Hernia Belt With Scrotal Support See Rx Instructions .Route .MEDSUPPLY Qty: 1 0RF Rx Instructions: As directed (DME) diabetic shoes Qty: 1 0RF Dose Instruction: As directed Rx Instructions: As directed (DME) Sleeping wedge cushion See Rx Instructions .Route .MEDSUPPLY Qty: 1 0RF Rx Instructions: Use at night to sleep to help prevent acid reflux (DME) Life Chair See Rx Instructions .Route .MEDSUPPLY Qty: 1 0RF Rx Instructions: As directed (DME) hernia support belt See Rx Instructions .Route .MEDSUPPLY Qty: 1 0RF Rx Instructions: As directed (DME) oxygen-air delivery systems Device See Rx Instructions .ROUTE .MEDSUPPLY Qty: 1 Rx Instructions: As directed Follow Up Plan Follow up with: Kirsty Montanez DO [Primary Care Provider] - Patient Disposition: Home, Self-Care Prognosis: Undetermined Discharge Orders: Discharge Order (Routine); Ordered 01/16/23 Ordered By: Ever Morrow
[2023-01-19 11:20] LABS: Opiate Confirmation Positive
[2023-01-19 11:21] LABS: Cannabinoid Confirmation Positive
== END 2023-01-16 15:15 | disposition home or self-care (01) | DRG 441 ==
LOC: ED 05:15 → ICU 15:00
PROVIDERS: ADMIT Internal Medicine; ATTEND Internal Medicine